=== PATIENT | female | born 1980 | race Caucasian/White ===

== ENCOUNTER 2022-12-31 09:52 | Outpatient (OUT) | payer OTHER, SELFPAY ==
--- NOTE | 2022-12-31 09:58 | MM_ITS ---
Patient Name: ZOHAIB BOYER MR#: [id number] : 1980 Exam Date: 12/31/2022 Ordering Doctor: DR DESTINEE DORAN RADIOLOGY REPORT PROCEDURE: MM TOMOSYNTHESIS SCREENING BI COMPARISON: MG MAMM SCREEN 3D HILDA CAD, 09/07/2021. INDICATIONS: Screening Calculator Name NCI Breast Cancer Risk Assessment Tool 5 Year Breast Cancer Risk 0.50% Lifetime Breast Cancer Risk 8.20% Personal Breast Cancer No Personal Ovarian Cancer No Treatments None Family Cancers Grandmother-maternal with colon cancer at age 70. LOCATION: [facility] BREAST COMPOSITION: Heterogeneously dense,which may obscure small masses. FINDINGS: DIAGNOSTIC CATEGORY 1--NEGATIVE. RIGHT BREAST: No significant suspicious finding. No significant change has occurred. LEFT BREAST: No significant suspicious finding. No significant change has occurred. RECOMMENDATIONS: ROUTINE MAMMOGRAM AND CLINICAL EVALUATION IN 12 MONTHS. PLEASE NOTE: A NORMAL MAMMOGRAM DOES NOT EXCLUDE THE POSSIBILITY OF BREAST CANCER. A CLINICALLY SUSPICIOUS PALPABLE LUMP SHOULD BE BIOPSIED. Dictated by: Vu Olivas M.D. on 01/05/2023 at 11:43 Approved by: Vu Olivas M.D. on 01/05/2023 at 11:45
== END 2022-12-31 09:53 | disposition home or self-care (01) ==
LOC: MAMMO 09:55
PROVIDERS: Visit Provider Obstetrics & Gynecology
DX: Z12.31 Encounter for screening mammogram for malignant neoplasm of breast (principal); Z80.0 Family history of malignant neoplasm of digestive organs
CPT/HCPCS: 77063; 77067

== ENCOUNTER 2023-07-01 14:29 | Emergency (ER) | payer OTHER, SELFPAY ==
[2023-07-01 14:34] VITALS: BP 140/84; PULSE 102; TEMP 37; O2SAT 98
--- OUTSIDE RECORDS SUMMARY | 2023-07-01 14:40 | XMS_ITS | CCD ---
Author Organization [facility] Care Team Providers Care Core Fitter Name Role Phone Tanvi Donaldson Unavailable Mast, Marques Unavailable EVERARDO, DR MOURA Attending Unavailable KARASIK, DR MOURA Admitting Unavailable KARASIK, DR MOURA Consulting Unavailable REQUEST, DR CROSS LISTED Primary Care Unavaila ble KARASIK, DR MOURA Admitting Unavailable KARASIK, DR MOURA Consulting Unavailable KARASIK, DR MOURA Attending Unavailable ZIEBER, DR VU Jimenez Consulting Unavailable Anika, Tanvi Admitting Unavailable Tanvi Donaldson Attending Unavailable Mast, Marques Primary Care Unavailable Mast, Marques Admitting Unavailable Mast, Marques Attending Unavailable Mast, Marques Primary Care Unavailable Celia Thorpe Unavailable Allergies Allergy Classification Reported Allergen(s) Allergy Type Date of Onset Reaction(s) Facility (10 sources) [place] Propensity to adverse reactions anaphylaxis [facility] Other (11 sources) Latex; Translations: [latex] Drug allergy 1 [facility] Repository (1 source) [place] extract Drug Allergy 1 [facility] Repository Medications Current Medications Medication Drug Class(es) Dates Sig (Normalized) Sig (Original) ascorbic acid 500 mg oral capsule (1 source) Vitamin C take 1 capsule by mouth every twenty-four hours Vitamin C 500 MG 1 tablet Orally Daily Active busPIRone hydrochloride 10 mg oral tablet (10 sources) Start: 11-15-2019 take 1 tablet by mouth every twelve hours busPIRone HCl 10 MG 1 tablet Orally Twice a day for 30 days Nov, Active take 1 tablet by mouth twice hanny ly busPIRone HCl 15 MG Take 1 tablet by mouth twice daily Active DULoxetine 60 mg delayed release oral capsule (10 sources) Serotonin and Norepinephrine Reuptake Inhibitor take 1 capsule by mouth once daily DULoxetine HCl 60 MG Take 1 capsule by mouth once daily Active estradiol 1 mg oral tablet (2 sources) Estrogen take 1 tablet by mouth every twenty-four hours Estradiol 1 MG 1 tablet Orally Once a day Active fluticasone propionate 0.05 mg/actuat metered dose nasal spray (4 sources) Corticosteroid Start: 07-22-19 take 2 spray(s) nasal route once daily Fluticasone Propionate 50 MCG/ACT 2 sprays Nasally Once a day for 14 day(s) Jul, Active Start: 07-21-2022 take 2 spray(s) nasa l route once daily Fluticasone Propionate 50 MCG/ACT 2 sprays Nasally Once a day for 14 day(s) Jul, Active meloxicam 15 mg oral tablet (9 sources) Nonsteroidal Anti-inflammatory Drug Start: 07-16-2021 take 1 tablet by mouth every twenty-four hours Meloxicam 15 MG 1 tablet Orally Once a day for 90 days Jul, Active Multi For Her (10 sources) take 1 tablet by mouth once daily Multi For Her 1 Tablet Orally daily Active Vitamin C 500 MG (9 sources) take 1 tablet by mouth once daily Vitamin C 500 MG 1 tablet Orally Daily Active Completed/Discontinued Medications Medication Drug Class(es) Dates Sig (Normalized) Sig (Original) [id number] 200 actuat albuterol 0.09 mg/actuat metered dose inhaler (4 sources) beta2-Adrenergic Agonist Start: 01-28-2019 take 2 puff(s) by inhalation every four hours as needed Albuterol Sulfate HFA 108 (90 Base) MCG/ACT 2 puffs as needed Inhalation every 4 hrs Jan, Not-Taking Start: 01-28-2019 take 2 puff(s) by in halation every four hours as needed Albuterol Sulfate HFA 108 (90 Base) MCG/ACT 2 puffs as needed Inhalation every 4 hrs Jan, Not-Taking amoxicillin 875 mg / clavulanate 125 mg oral tablet (4 sources) Penicillin-class Antibacterial Start: 07-21-2022 take 1 tablet by mouth every twelve hours Amoxicillin-Pot Clavulanate 875-125 MG 1 tablet Orally every 12 hrs for 10 day(s) Jul, Not-Taking/PRN fluconazole 150 mg oral tablet (4 sources) Azole Antifungal Start: 12-31-2020 take 1 tablet by mouth once Diflucan 150 MG 1 tablet Orally once for 1 day Take 1 tablet p.o. upon onset of symptoms of vaginal yeast infection Dec, Not-Taking mupirocin 0.02 mg/mg topical ointment (4 sources) RNA Synthetase Inhibitor Antibacterial Start: 10-22-2019 Mupirocin 2 % 1 application Externally Three times a day for 5 day(s) Oct, Not-Taking nitrofurantoin, macrocrystals 25 mg / nitrofurantoin, monohydrate 75 mg oral capsule (4 sources) Nitrofuran Antibacterial Start: 12-31-2020 take 1 capsule by mouth every twelve hours Macrobid 100 MG 1 cap(s) Orally bid for 5 day(s) Dec, Not-Taking penicillin v potassium 500 mg oral tablet (4 sources) Start: 10-30-2020 take 1 tablet by mouth every eight hours Penicillin V Potassium 500 MG 1 tablet Orally tid for 10 day(s) Oct, Not-Taking phenazopyridine hydrochloride 200 mg oral tablet (4 sources) Start: 12-31-2020 take 1 tablet by mouth every eight hours Pyridium 200 MG 1 tablet after meals Orally Three times a day for 2 day(s) Dec, Not-Taking predniSONE 20 mg oral tablet (4 sources) Start: 07-21-2022 take 1 tablet by mouth every twelve hours predniSONE 20 MG 1 tablet Orally bid for 5 day(s) Jul, Not-Taking/PRN Problems Active Problems Problem Classification Problem Date Documented Da te Episodic/Chronic Abdominal pain (10 sources) Generalized abdominal pain; Translations: [Generalized abdominal pain] Episodic Anxiety disorders (13 sources) Anxiety; Translations: [Other specified anxiety disorders] Chronic Esophageal disorders (10 sources) Gastroesophageal reflux disease; Translations: [Gastro-esophageal reflux disease without esophagitis] Chronic Gastrointestinal hemorrhage (20 sources) Hematochezia; Translations: [Melena] Episodic Hemorrhoids (10 sources) Internal hemorrhoids; Translations: [Other hemorrhoids] Episodic Immunizations and screening for infectious disease (3 sources) Encounter for screening for human papillomavirus (HPV); Translations: [Encounter for immunization] Onset: 2 Episodic Mycoses (1 source) Tinea unguium Episodic Open wounds of extremities (1 source) Puncture wound without foreign body, right foot, initial encounter Episodic Other gastrointestinal disorders (10 sources) Diarrhea; Translations: [Diarrhea, unspecified] Episodic Other non-traumatic joint disorders (2 sources) Pain in right hip Onset: 2 Resolved: 2 Episodic Other screening for suspected conditions (not mental disorders or infectious disease) (8 sources) Encounter for screening mammogram for malignant neoplasm of breast; Translations: [Encounter for screening for malignant neoplasm of cervix] Onset: 2 Episodic Other skin disorders (1 source) Localized swelling, mass and lump, neck Episodic Other skin disorders (2 sources) Ingrowing nail Episodic Other upper respiratory infections (1 source) Acute sinusitis, unspecified Episodic Residual codes; unclassified (1 source) Family history of malignant neoplasm of digestive organs; Translations: [FAM HX MALIG NEOPLASM DIGESTIV ORGN] Onset: 2 Episodic Unclassified (1 source) Pain in right hip; Translations: [Pain in right hip] Onset: 2 Unclassified (1 source) Low back pain, unspecified; Translations: [Low back pain, unspecified] Onset: 2 Unclassified (1 source) R30.0 - Dysuria; Translations: [R30.0 - Dysuria] Onset: 1 Past or Other Problems Problem Classification Problem Date Documented Da te Episodic/Chronic Genitourinary symptoms and ill-defined conditions (2 sources) Dysuria; Translations: [Hematuria, unspecified] Onset: 12-31-2020 Resolved: 12-31-2020 Episodic Unclassified (1 source) Midline low back pain without sciatica, unspecified chronicity M54.50 Onset: 07-16-2021 Resolved: 07-16-2021 Urinary tract infections (1 source) Urinary tract infection, site not specified Onset: 12-31-2020 Resolved: 12-31-2020 Episodic Results Test Name Value Interpretation Reference Range Facility MG MAMM SCREEN 3D HILDA CADon 09-07-2021 MG MAMM SCREEN 3D HILDA CAD Patient: ZOHAIB BOYER Exam Date: 09/07/2021 : 1980 Gender:F Ordering : DR MARTELL MCGEE . Admission #: [id number] Family : Order #: [id number] CLICK HERE TO VIEW EXAM RADIOLOGY REPORT PROCEDURE: MAMMOGRAM SCREENING 3D BILATERAL CAD COMPARISON: None. INDICATIONS: Screening mammography Calculator Name NCI Breast Cancer Risk Assessment Tool 5 Year Breast Cancer Risk 0.50% Lifetime Breast Cancer Risk 8.30% Personal Breast Cancer No Personal Ovarian Cancer No Treatments None Family Cancers Grandmother-maternal with colon cancer at age 70. LOCATION: [facility] BREAST COMPOSITION: Heterogeneously dense,which may obscure small masses. FINDINGS: DIAGNOSTIC CATEGORY 1--NEGATIVE. RIGHT BREAST: No significant suspicious finding. LEFT BREAST: No significant suspicious finding. RECOMMENDATIONS: ROUTINE MAMMOGRAM AND CLINICAL EVALUATION IN 12 MONTHS. PLEASE NOTE: A NORMAL MAMMOGRAM DOES NOT EXCLUDE THE POSSIBILITY OF BREAST CANCER. A CLINICALLY SUSPICIOUS PALPABLE LUMP SHOULD BE BIOPSIED. Dictated by: Vu Olivas M.D. on 09/07/2021 at 12:46 Approved by: Vu Olivas M.D. on 09/07/2021 at 12:48 Normal [facility] PAP ACOG PANEL 2: 30 to 65on 08-14-2021 . . Normal [facility] Comment on above: Result Comment: Perf ormed at: WB Performed By: #### [id number] #### [facility] [address] [address] [address] Nayeli Robertson Age Gdln ACOG Testing 30-65 Normal [facility] Comment on above: Performed By: #### [id number] #### [facility] [address] [address] [address] Nayeli Robertson DIAGNOSIS: Comment Normal [facility] Comment on above: Result Comment: NEGA TIVE FOR INTRAEPITHELIAL LESION OR MALIGNANCY. SHIFT IN MICHELLE SUGGESTIVE OF BACTERIAL VAGINOSIS. Performed at: WB Performed By: #### [id number] #### [facility] [address] [address] [address] Nayeli Robertson HPV Aptima Negative Normal Negative [facility] Comment on above: Result Comment: This nucleic acid amplification test detects fourteen high-risk HPV types (16,18,31,33,35,39,45,51,52,56,58,59,66,68) without differentiation. Performed at: =G Performed By: #### [id number] #### [facility] [address] [place] [address] Dr. Nayeli Robertson Methodology: Comment Normal [facility] Comment on above: Result Comment: This liquid based ThinPrep(R) pap test was screened with the use of an image guided system. Performed at: WB Performed By: #### [id number] #### [facility] [address] [place] [address] Dr. Nayeli Robertson Note: Comment Normal [facility] Comment on above: Result Comment: The Pap smear is a screening test designed to aid in the detection of premalignant and malignant conditions of the uterine cervix. It is not a diagnostic procedure and should not be used as the sole means of detecting cervical cancer. Both false-positive and false-negative reports do occur. . Performed at: WB Performed By: #### [id number] #### [facility] [address] [place] [address] Dr. Nayeli Robertson Performed by: Comment Normal [facility] Comment on above: Result Comment: Ale Grullon, Machine Heel Sprayer (ASCP) Performed at: WB Performed By: #### [id number] #### [facility] [address] [place] [address] Dr. Nayeli Robertson Specimen adequacy: Comment Normal [facility] Comment on above: Result Comment: Sati sfactory for evaluation. No endocervical component is identified. Performed at: WB Performed By: #### [id number] #### [facility] [address] [place] [address] Dr. Nayeli Robertson XR lumbar spine min 4V*on XR lumbar spine min 4V* [facility] [place] [address] [place] [address] XRay Report Signed Patient: Zohaib Boyer MR#: [id number] 2 : 1980 Acct:[id number] Age/Sex: 41 / F ADM Date: 07/30/21 [facility] Attending Dr: Marques Swenson DO Copies to: Marques Swenson DO Ordering Provider: Marques Nik Swenson Date of Service: 07/30/21 XR/XR hip RT min 2V(w/wo pelvis)*: Right hip pain ([id number]) XR/XR lumbar spine min 4V*: Midline low back pain without sciatica, unspecified chronici CLINICAL HISTORY: Low back pain and pain at the hips, greater on the right. Patient fell down stairs several years ago. No recent injury. RIGHT HIP - 2 views: COMPARISON: None AP and frog-lateral views were obtained. There is no evidence of fracture or dislocation. The hip joint space is maintained. There is no prominent hypertrophy. Are no significant soft tissue abnormalities. XR/XR hip RT min 2V(w/wo pelvis)* IMPRESSION: NO ACUTE BONY FINDINGS. LUMBAR SPINE - 6 views COMPARISON: 09/08/2015 AP, lateral, both oblique and AP and lateral coned-down views of lumbosacral junction were obtained. No fractures or displacement are noted. The disc spaces are uniform. No pars defects are seen. There is mild lower lumbar facet hypertrophy. The SI joints are intact though there is minimal sclerosis. No paraspinal soft tissue abnormalities are present. IMPRESSION: MINOR DEGENERATIVE CHANGES. NO ACUTE BONY FINDINGS OR INTERVAL CHANGE. Impression dictated by: Kim Dhillon M.D.07/30/2021 7:53 PM Dictation Location: [place] [address] Transcribed By: [facility] 07/30/211952 Dictated By: Kim Dhillon MD 07/30/21 1524 Signed By: 07/30/211952 [facility] Urinalysis - AUTOMATEDon Appearance (U) clear [employer] Other Bilirubin Ql (U) Negative [employer] Other Color (U) pale yellow [facility] Other Glucose Ql (U) Negative [facility] Other Hemoglobin Ql (U) moderate [employer] Other Ketones Ql (U) Negative Sist[facility] Other Leukocyte esterase Test strip Ql (U) small [facility] Other Nitrite Ql (U) Positive [facility] Other pH (U) 7.0 [pH] [facility] Other Protein Ql (U) Negative [facility] Other Specific gravity (U) [Rel density] 1.020 [facility] Other Urobilinogen (U) [Mass/Vol] 0.2 mg/dL [facility] Other Urinalysis - AUTOMATED [facility] Other Urine Cultureon 12-31-2020 Bacteria identified Cx Nom (U) Reason for Exam Dysuria Urine ORGANISM: Escherichia coli (O:ESCCOL) [place] Count >100,000 Aerobic DK Charge (NUC86) ---- SUSCEPTIBILITY --- ORGANISM: O:ESCCOL ANTIBIOTIC INTERPRETATION DK Amikacin S <16 Ampicillin S <8 Ampicillin/Sulbactam S <8/4 Aztreonam S <4 Cefazolin S <2 Cefepime S <2 Ceftazidime S <1 Ceftazidime/Avibactam S <8 Ceftriaxone S <1 Ciprofloxacin S <1 Ertapenem S <0.5 Gentamicin S <4 Levofloxacin S <2 Meropenem S <1 Nitrofurantoin S <32 Piperacillin/Tazobact am S <16 Tetracycline S <4 Tigecycline S <2 Tobramycin S <4 Trimethoprim/Sulfamet hoxazole S <2/38 S = SUSCEPTIBLE I = INTERMEDIATE R = RESISTANT BLANK = DATA NOT AVAILABLE, OR DRUG NOT ADVISABLE OR TESTED R* = RESISTANCE DUE TO EXTENDED SPECTRUM BETA-LACTAMASES ESBL = EXTENDED SPECTRUM BETA-LACTAMASE TFG = THYMIDINE-DEPENDENT STRAIN VASYL = BETA-LACTAMASE POSITIVE IB = INDUCIBLE BETA-LACTAMASE. APPEARS IN PLACE OF 'S' WITH SPECIES KNOWN TO POSSESS INDUCIBLE BETA-LACTAMASES. POTENTIALLY THEY MAY BECOME RESISTANT TO ALL B-LACTAM DRUGS. PERFORMED BY: [place] [address] PATHOLOGIST DETECTIVE [employer] ANNIKA PERERA M.D. Normal [facility] Comment on above: Performed By: #### C UU #### [address] Vital Signs Date Time Vital Sign Value Performing Clinician Facility 01-18-2023 16:45-0500 Body height 167.64 cm Marques Mast Other [facility] Other 01-18-2023 16:45-0500 Body mass index (BMI) [Ratio] 31.45 kg/m2 Marques Mast Other [facility] Other 01-18-2023 16:45-0500 Body temperature 97.6 [degF] Marques Mast Other [facility] Other 01-18-2023 16:45-0500 Body weight 88.41 kg Marques Mast Other [facility] Other 01-18-2023 16:45-0500 Diastolic blood pressure 84 mm[Hg] Marques Mast Other [facility] Other 01-18-2023 16:45-0500 Respiratory rate 18 /min Marques Mast Other [facility] Other 01-18-2023 16:45-0500 SaO2% (BldA) [Mass fraction] 99 % Marques Mast Other [facility] Other 01-18-2023 16:45-0500 Systolic blood pressure 140 mm[Hg] Marques Mast Other [facility] Other 01-10-2023 13:00-0500 Body height 167.64 cm Marques Mast Other [facility] Other 01-10-2023 13:00-0500 Body mass index (BMI) [Ratio] 31.12 kg/m2 Marques Mast Other [facility] Other 01-10-2023 13:00-0500 Body temperature 97.7 [degF] Marques Mast Other [facility] Other 01-10-2023 13:00-0500 Body weight 87.45 kg Marques Mast Other [facility] Other 01-10-2023 13:00-0500 Diastolic blood pressure 78 mm[Hg] Marques Mast Other [facility] Other 01-10-2023 13:00-0500 Respiratory rate 18 /min Marques Mast Other [facility] Other 01-10-2023 13:00-0500 SaO2% (BldA) [Mass fraction] 99 % Marques Mast Other [facility] Other 01-10-2023 13:00-0500 Systolic blood pressure 122 mm[Hg] Marques Mast Other [facility] Other 12-07-2022 14:30-0400 Body height 167.64 cm Marques Mast Other [facility] Other 12-07-2022 14:30-0400 Body mass index (BMI) [Ratio] 31.02 kg/m2 Marques Mast Other [facility] Other 12-07-2022 14:30-0400 Body temperature 97.5 [degF] Marques Mast Other [facility] Other 12-07-2022 14:30-0400 Body weight 87.18 kg Marques Mast Other [facility] Other 12-07-2022 14:30-0400 Diastolic blood pressure 80 mm[Hg] Marques Mast Other [facility] Other 12-07-2022 14:30-0400 Respiratory rate 18 /min Marques Mast Other [facility] Other 12-07-2022 14:30-0400 SaO2% (BldA) [Mass fraction] 96 % Marques Mast Other [facility] Other 12-07-2022 14:30-0400 Systolic blood pressure 120 mm[Hg] Marques Mast Other [facility] Other 07-21-2022 09:00-0400 Body height 167.64 cm Tanvi Kimmond Other [facility] Other 07-21-2022 09:00-0400 Body mass index (BMI) [Ratio] 30.02 kg/m2 Tanvi Anika Other [facility] Other 07-21-2022 09:00-0400 Body temperature 97.5 [degF] Tanvi Anika Other [facility] Other 07-21-2022 09:00-0400 Body weight 84.37 kg Tanvi Anika Other [facility] Other 07-21-2022 09:00-0400 Respiratory rate 18 /min Tanvi Donaldson Other [facility] Other 07-21-2022 09:00-0400 SaO2% (BldA) [Mass fraction] 95 % Tanvi Donaldson Other [facility] Other 04-26-2022 10:15-0400 Body height 167.64 cm Marques Mast Other [facility] Other 04-26-2022 10:15-0400 Body mass index (BMI) [Ratio] 30.68 kg/m2 Marques Mast Other [facility] Other 04-26-2022 10:15-0400 Body temperature 97.3 [degF] Marques Mast Other [facility] Other 04-26-2022 10:15-0400 Body weight 86.23 kg Marques Mast Other [facility] Other 04-26-2022 10:15-0400 Diastolic blood pressure 72 mm[Hg] Marques Mast Other [facility] Other 04-26-2022 10:15-0400 Respiratory rate 18 /min Marques Mast Other [facility] Other 04-26-2022 10:15-0400 SaO2% (BldA) [Mass fraction] 98 % Marques Mast Other [facility] Other 04-26-2022 10:15-0400 Systolic blood pressure 132 mm[Hg] Marques Mast Other [facility] Other 12-27-2021 15:30-0500 Body height 167.64 cm Celia Thorpe Other [facility] Other 12-27-2021 15:30-0500 Body mass index (BMI) [Ratio] 31.47 kg/m2 Celia Thorpe Other [facility] Other 12-27-2021 15:30-0500 Body temperature 98.8 [degF] Celia Thorpe Other [facility] Other 12-27-2021 15:30-0500 Body weight 88.45 kg Celia Thorpe Other [facility] Other 12-27-2021 15:30-0500 Diastolic blood pressure 88 mm[Hg] Celia Thorpe Other [facility] Other 12-27-2021 15:30-0500 Respiratory rate 18 /min Celia Thorpe Other [facility] Other 12-27-2021 15:30-0500 SaO2% (BldA) [Mass fraction] 96 % Celia Thorpe Other [facility] Other 12-27-2021 15:30-0500 Systolic blood pressure 145 mm[Hg] Ceila Thorpe Other [facility] Other 12-17-2021 16:30-0500 Body height 167.64 cm Marques Mast Other [facility] Other 12-17-2021 16:30-0500 Body mass index (BMI) [Ratio] 30.66 kg/m2 Marques Mast Other [facility] Other 12-17-2021 16:30-0500 Body temperature 97.8 [degF] Marques Mast Other [facility] Other 12-17-2021 16:30-0500 Body weight 86.18 kg Marques Mast Other [facility] Other 12-17-2021 16:30-0500 Diastolic blood pressure 70 mm[Hg] Mraques Mast Other [facility] Other 12-17-2021 16:30-0500 Respiratory rate 18 /min Marques Mast Other [facility] Other 12-17-2021 16:30-0500 SaO2% (BldA) [Mass fraction] 98 % Marques Mast Other [facility] Other 12-17-2021 16:30-0500 Systolic blood pressure 122 mm[Hg] Marques Mast Other [facility] Other 07-16-2021 16:45-0400 Body height 167.64 cm Marques Mast Other [facility] Other 07-16-2021 16:45-0400 Body mass index (BMI) [Ratio] 32.28 kg/m2 Marques Mast Other [facility] Other 07-16-2021 16:45-0400 Body weight 90.72 kg Marques Mast Other [facility] Other 07-16-2021 16:45-0400 Diastolic blood pressure 78 mm[Hg] Marques Mast Other [facility] Other 07-16-2021 16:45-0400 Respiratory rate 18 /min Marques Mast Other [facility] Other 07-16-2021 16:45-0400 SaO2% (BldA) [Mass fraction] 98 % Marques Mast Other [facility] Other 07-16-2021 16:45-0400 Systolic blood pressure 125 mm[Hg] Marques Mast Other [facility] Other 12-31-2020 16:20-0500 Body height 167.64 cm Tanvi Anika Other [facility] Other 12-31-2020 16:20-0500 Body mass index (BMI) [Ratio] 32.25 kg/m2 Tanvi Anika Other [facility] Other 12-31-2020 16:20-0500 Body temperature 98.2 [degF] Tanvi Anika Other [facility] Other 12-31-2020 16:20-0500 Body weight 90.63 kg Tanvi Anika Other [facility] Other 12-31-2020 16:20-0500 Diastolic blood pressure 79 mm[Hg] Tanvi Anika Other [facility] Other 12-31-2020 16:20-0500 Respiratory rate 18 /min Tanvi Anika Other [facility] Other 12-31-2020 16:20-0500 SaO2% (BldA) [Mass fraction] 99 % Tanvi Anika Other [facility] Other 12-31-2020 16:20-0500 Systolic blood pressure 144 mm[Hg] Tanvi Kimmond Other [facility] Other Encounters Encounter Date Encounter Type Care Provider Facility Start: 01-18-2023 End: 01-18-2023 ambulatory Marques Mast Other [facility] Other Start: 01-18-2023 Patient encounter procedure Marques Mast [facility] Start: 01-10-2023 End: 01-10-2023 ambulatory Marques Mast Other [facility] Other Start: 01-10-2023 Office outpatient visit 15 minutes Marques Mast [facility] Start: 12-07-2022 End: 12-07-2022 ambulatory Marques Mast Other [facility] Other Start: 12-07-2022 Office outpatient visit 15 minutes Marques Mast [facility] Start: 07-21-2022 End: 07-21-2022 ambulatory Tanvi Anika Other [facility] Other Start: 07-21-2022 Office outpatient visit 15 minutes Tanvi Anika [facility] Start: 04-26-2022 End: 04-26-2022 ambulatory Marques Mast Other [facility] Other Start: 04-26-2022 Office outpatient visit 25 minutes Marques Mast [facility] Start: 12-27-2021 End: 12-27-2021 ambulatory Celia Thorpe Other [facility] Other Start: 12-27-2021 Office outpatient visit 15 minutes Celia Thorpe [facility] Start: 12-17-2021 End: 12-17-2021 ambulatory Marques Mast Other [facility] Other Start: 12-17-2021 Office outpatient visit 15 minutes Marques Mast [facility] Start: 09-07-2021 End: 09-08-[address] CROSS LISTED REQUEST Facility:[facility] Start: 09-03-2021 End: 09-03-2021 ambulatory Marques Mast Other [facility] Other Start: 09-03-2021 Telephone encounter Marques Mast [facility] [place] Start: 08-11-2021 End: 08-11-[address] MARTELL MCGEE Facility:[facility] Start: 07-30-2021 End: 07-30-2021 ambulatory Marques Mast Facility:[facility] Start: 07-16-2021 End: 07-16-2021 ambulatory Marques Mast Other [facility] Other Start: 07-16-2021 Office outpatient visit 25 minutes Marques Mast [facility] [facility] Start: 12-31-2020 End: 12-31-2020 ambulatory Tanvi Donaldson [facility] Other Start: 12-31-2020 Office outpatient visit 25 minutes Tanvi Donaldson [facility] Immunizations Immunization Date Immunization Notes Care Provider Tim [facility] 12-07-2022 influenza, injectable, quadrivalent, preservative free Marques Mast Other [facility] Other 12-01-2022 COVID-19 Vaccine Moderna - Documentation Purposes Only Marques Mast Other [facility] Other 12-27-2021 tetanus toxoid, reduced diphtheria toxoid, and acellular pertussis vaccine, adsorbed Celia Thorpe Other [facility] Other 12-17-2021 influenza, injectable, quadrivalent, preservative free Marques Mast Other [facility] Other 12-07-2019 influenza, seasonal, injectable Tanvi Donaldson Other [facility] Other NEGATED: Highlighted row has not occurred! 0 influenza, injectable, quadrivalent, contains preservative Patient Objection Tanvi Donaldson Other [facility] Other Payers Date Payer Category Payer Self-pay 1980 Unknown [id number] 2.16.84 [id number] 1980 Unknown [id number] 2.16.84 [id number] 1958 Unknown [id number] 2.16.8 [id number] Unknown [id number] 2.16.8 [id number] Unknown [id number] 2.16.8 [id number] Social History Date Type Detail Facility Unknown if ever smoked [facility]! Other Sex Assigned At Sex Assigned At Bir th [facility] Other Clinical Notes 12-31-2020 to 01-18-2023 Note Date & Type Note Facility 01-18-2023 Evaluation note Encounter Date Diagnosis Assessment Notes Jan, Ingrown toenail (ICD-10 - L60.0) The area has healed well. Recheck as needed [facility] Other 12-04-2023 Evaluation note* Encounter Date Diagnosis Assessment Notes Treatment Notes Treatment Clinical Notes Jan, Ingrown toenail (ICD-10 - L60.0) Jan, Onychomycosis (ICD-10 - B35.1) Jan, Other We discussed treatment options. I advised that partial nail removal would likely afford her the best symptom improvement today. I offered referral to podiatry but she request that I perform this here today. Informed consent obtained. We elected to treat the right great toenail today. Digital block anesthesia was performed of the right great toe with 3 cc of 1% plain lidocaine. Rubber band tourniquet applied. The area is cleansed with Betadine. Using a nail elevator I was able to separate the nail from the nailbed, and using a nail splitter I was able to remove the medial third of the nail. Tourniquet removed, Iodoform gauze and dressing applied. She tolerated the procedure well, there were no complications. Home care reviewed. Wound check in 1 week, call if problems arise. We did also briefly discuss treatment for onychomycosis, we will readdress this at follow-up. [facility] Other 10-31-2023 Evaluation note* Encounter Date Diagnosis Assessment Notes Treatment Notes Treatment Clinical Notes Nov, Anxiety with depression (ICD-10 - F41.8) Doing well on current medications, continue the same. Recheck in 6 months, sooner if problems Nov, Flu vaccine need (ICD-10 - Z23) Nov, Other She will let me know if she needs a new EpiPen, I will be happy to refill this for her [facility] Other 06-14-2023 Evaluation note* Encounter Date Diagnosis Assessment Notes Treatment Notes Treatment Clinical Notes Jul, Acute sinusitis, recurrence not specified, unspecified location (ICD-10 - J01.90) Sinusitis home care material was printed Drink plenty fluids, get plenty of rest. Take the amoxicillin with clavulanate as prescribed until gone. Take the prednisone as prescribed until gone. Use the Flonase inhaler as prescribed until your symptoms improve. You may continue to take Mucinex as needed for congestion. Take Tylenol or Motrin as needed for aches pains or fevers. Follow-up with your family physician if no improvement in 2 to 3 days. You may return to work tomorrow [facility] Other 03-20-2023 Evaluation note* Encounter Date Diagnosis Assessment Notes Treatment Notes Treatment Clinical Notes Apr, Anxiety with depression (ICD-10 - F41.8) Stay on the Cymbalta, increase the buspirone up to 15 mg twice daily. Short counseling session held, I encouraged her to arrange formal counseling Apr, Neck fullness (ICD-10 - R22.1) Exam suggest a possible thyroid fullness on the left. I do not appreciate any neck mass or adenopathy. Check ultrasound, further treatment pending results [facility] Other 11-20-2022 Evaluation note* Encounter Date Diagnosis Assessment Notes Treatment Notes Treatment Clinical Notes Dec, Puncture wound of right foot, initial encounter (ICD-10 - S91.331A) Updated vaccine in office today. . FOllow up wiht PCP if symptoms such as moderate swelling, redness, drainage occure. [facility] Other 11-10-2022 Evaluation note* Encounter Date Diagnosis Assessment Notes Treatment Notes Treatment Clinical Notes Dec, Anxiety with depression (ICD-10 - F41.8) Mood is well controlled. Continue current meds and recheck this in 6 months, sooner if problems Dec, Right hip pain (ICD-10 - M25.551) The etiology of her hip pain is unclear, and her exam does not show significant abnormality. She would like to stay on the meloxicam which I think is reasonable. She denies any medication side effects. I encouraged regular exercise, walking. I offered sending her to physical therapy, she prefers to hold off on this right now. She will let me know if she changes her mind. Dec, Flu vaccine need (ICD-10 - Z23) [facility] Other 06-09-2022 Evaluation note* Encounter Date Diagnosis Assessment Notes Treatment Notes Treatment Clinical Notes Jul, Midline low back pain without sciatica, unspecified chronicity (ICD-10 - M54.50) Symptoms most suspicious for a lumbar radiculopathy. Check lumbar spine x-rays to reassess her degenerative changes, observe response to meloxicam. She may also benefit from PT in the future Jul, Right hip pain (ICD-10 - M25.551) Check x-ray to evaluate for possible arthritis, though clinically I am most suspicious for trochanteric bursitis. If x-ray does not provide a contraindication, I will have her come back for steroid injection. In the meantime, start meloxicam and observe response. Recheck in a month [facility]! Other 11-24-2021 Evaluation note* Encounter Date Diagnosis Assessment Notes Treatment Notes Treatment Clinical Notes Dec, Dysuria (ICD-10 - R30.0) Drink plenty fluids, get plenty of rest. Take the Macrobid as prescribed until gone. Take the Pyridium as prescribed until gone. Take the Diflucan as prescribed upon onset of symptoms or vaginal yeast infection. Follow-up with family physician if no improvement in 2 to 3 days. Dec, Urinary tract infection, site not specified (ICD-10 - N39.0) Dec, Hematuria, unspecified (ICD-10 - R31.9) [facility]! Other Evaluation noteNo InformationN[facility] Other History general Narrative - Reported* Type Description Date Medical History Headache Medical History anxiety Surgical History partial hysterectomy 2011 Surgical History tubal ligation 2006 Surgical History colonoscopy Surgical History COLONOSCOPY 2014 Hospitalization History childbirth YesPlz! Other Summary Purpose Family History No Family History Records FoundNo Family History Records Found Advance Directives No Advanced Directives Records FoundNo Advanced Directives Records Found Additional Source Comments REASON FOR VISIT (unrecogniz ed section and content) POSS UTI, HEMATURIApain, hip REFILLmedication follow upSTEP ON NAIL RIGHT FOOTthyroid concernssinus/chest/coughingrefillsINGROWN TOE NAILS IN BOTH BIG TOES1 week follow up INFORMATION SOURCE (unrecogn ized section and content) DATE CREATED AUTHOR 09/11/2021 [facility] DATE CREATED AUTHOR 'S MICHAEL CASTELLANOS 11/16/2021 [facility] FOR RECORDS PERTAINING TO PATIENTS WHO ARE OR HAVE BEEN ENROLLED IN A CHEMICAL DEPENDENCY/SUBSTANCEABUSE PROGRAM, SOME INFORMATION MAY BE OMITTED. This clinical summary was aggregated from multiple sources. Caution should be exercised in using it in the provision of clinical care. This summary normalizes information from multiple sources, and as a consequence, information in this document may materially change the coding, format and clinical context of patient data. In addition, data may be omitted in some cases. CLINICAL DECISIONS SHOULD BE BASED ON THE PRIMARY CLINICAL RECORDS. [facility]. provides no warranty or guarantee of the accuracy or completeness of information in this document.
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
[2023-07-01] MEDS: BUTALB/ACETAMINOPHEN/CAFFEINE 50-325-40MG TABLET 1 TAB PO (16:22)
[2023-07-01 17:36] VITALS: BP 120/76; PULSE 77; O2SAT 98
== END 2023-07-01 17:38 | disposition home or self-care (01) ==
PROVIDERS: Emergency Provider Emergency Medicine
DX: S09.8XXA Other specified injuries of head, initial encounter (principal); R51.9 Headache, unspecified; Y04.2XXA Assault by strike against or bumped into by another person, initial encounter
CPT/HCPCS: 70450; 99284

== ENCOUNTER 2024-03-20 13:39 | Outpatient (OUT) | payer OTHER, SELFPAY ==
--- NOTE | 2024-03-20 13:44 | XR_ITS ---
The [address] [address] Patient Name: ZOHAIB BOYER MRN: [id number] date: 1980 Sex: F Assigned Patient Location: [facility] Current Patient Location: [facility] Accession/Order Number: [id number] Exam Date: 03/20/2024 13:50 Report Date: 03/20/2024 14:59 At the request of: ANTHONY STILL Procedure: XR abdomen 1V EXAMINATION: XR abdomen 1V HISTORY: Kidney Stones COMPARISON: No relevant comparison available. FINDINGS: KIDNEY/URETER - RIGHT: No visible renal or ureteral calcifications. KIDNEY/URETER - LEFT: No visible renal or ureteral calcifications. PELVIS: No visible ureteral calcifications. Any visible calcifications favor phleboliths. BOWEL: No abnormal dilation or deviation. BONES: No acute abnormality. OTHER: Negative. No abnormal gaseous collections. XR/XR abdomen 1V IMPRESSION: No definite urinary tract calculi Electronically authenticated by: DESTINY SOMMER Date: 03/20/2024 14:59
== END 2024-03-20 13:40 | disposition home or self-care (01) ==
LOC: RAD 13:40
PROVIDERS: Visit Provider Physician Assistant
DX: N20.1 Calculus of ureter (principal)
CPT/HCPCS: 74018

== ENCOUNTER 2024-10-23 07:27 | Emergency (ER) | payer OTHER, SELFPAY ==
[2024-10-23] VITALS (24 sets, daily range): BP systolic 112–134; BP diastolic 63–78; PULSE 63–82; TEMP 36.6; O2SAT 98–100; BMI 25.8
--- NOTE | 2024-10-23 07:41 | ECG_ITS ---
The [facility] Test Date: 2024-10-23 Pat Name: ZOHAIB BOYER Department: Room: - Gender: Female Inseamer: : 1980 Requested By: [id number] Order Number: [id number] Reading MD: MARA SYED M.D. Measurements Intervals [place] Rate: 62 P: 75 AR: 160 QRS: 81 QRSD: 82 T: 74 QT: 430 QTc: 436 Interpretive Statements 1100 Sinus rhythm 9110 normal ECG No previous ECG available for comparison Electronically Signed On 10-23-2024 20:11:47 EDT by MARA SYED M.D.
--- OUTSIDE RECORDS SUMMARY | 2024-10-23 07:44 | XMS_ITS | Clinical Summary ---
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 Active cholecalcifero l (Vitamin D-3) 25 MCG (1000 UT) tablet Take 1,000 Units by mouth in the morning. Active DULoxetine (Cymbalta) [address] capsule Take 60 mg by mouth in the morning. Active ferrous gluconate (Fergon) 324 (38 Fe) MG tablet Take 324 mg by mouth in the morning. Take with meals. 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 Obesity 12/07/2022 Other chronic pain 12/07/2022 Salivary stone 12/07/2022 Resolved Problems Problem Noted Date Diagnosed Date Resolved Date Status post hysterectomy 12/07/202205/2023 Immunizations Immunization Administration Dates Next Due Influenza, injectable, quadrivalent, preservativ e free 12/17/2021,12/14/2019 Influenza, seasonal, injectable 12/07/2019 Novel [id number], nasal 12/03/2008 SARS-COV-2 (COVID-19) vaccin e, mRNA, spike protein, LNP, PF, 50 mcg/0.5 mL 12/01/2022 Tdap 12/27/2021 Family History Medical History Relation Name Comments Colon cancer Maternal Grandfather Cancer Maternal Grandmother Relation Name Status Comments Father Maternal Grandfather Maternal Grandmother Mother Alive Social History Tobacco Use Types Packs/Day Years Used Date Smoking Tobacco: Every Day Cigarettes Smokeless Tobacco: Never Tobacco Cessation:Ready to Q uit: Not Asked; Counseling Given: Not Answered Alcohol Use Standard Drinks/Week Comments Yes 0 (1 standard drink = 0.6 oz pure alcohol) Caffeine intake: 2-3 cups per day AUDIT-C Answer Date Recorded Q1: How often do you have a drink containing alc ohol? Monthly or less 12/12/2023 Q2: How many drinks containi ng alcohol do you have on a typical day when you are drinking? 1 or 2 12/12/2023 Q3: How often do you have si x or more drinks on one occasion? Never 12/12/2023 PHQ-2 Answer Date Recorded Patient Health Questionnaire-2 Score 0 12/12/2023 Comments No Sex and Gender Information Value Date Recorded Sex Assigned at Not on file Legal Sex Female 6:57 PM EDT Gender Identity Not on file Sexual Orientation Not on file Last Filed Vital Signs Vital Sign Reading Time Taken Comments Blood Pressure 116/76 12/12/2023 1:38 PM EST Pulse - - Temperature - - Respiratory Rate - - Oxygen Saturation - - Inhaled Oxygen Concentration - - Weight 79.8 kg (176 lb) 12/12/2023 1:38 PM EST Height 167.6 cm (5' 6 ) 12/12/2023 1:38 PM EST Body Mass Index 28.41 12/12/2023 1:38 PM EST Plan of Treatment Upcoming Encounters Date Type Department Care Team (Late st Contact Info) Description 12/12/2024 2:00 PM EST Office Visit RUEL Andrews ANGIE [address] [place] [id number] Aidan Bradford, [address] [place] [address] Health Maintenance Due Date Last Done Comments Mammogram 01/06/2024 01/05/2023 Influenza Vaccine (#1) 2024 12/17/2021, 2019, 12/07/2019 Pap Smear 12/08/2025 12/08/2022 Cervical Cancer Screening 12/11/2028 HPV/Cotest 12/11/2028 12/12/2023 Procedures Procedure Name Priority Date/Time Associated Diagnosis Comments IGP,RFXAPTIMA HPV ALL,16/18,45 Routine 12/12/2023 2:08 PM EST Encounter for Papanicolaou smear of vagina MM TOMOSYNTHESIS SCREENING BI 01/05/2023 11:45 AM EST PAP SMEAR Routine 12/08/2022 2:05 PM EDT from Last 3 Months or Most Recently Relevant to Health Maintenance Results * IGP,rfxAptima HPV all,16/18,45 (12/12/2023 2:08 PM EST) Diagnosis: Comment [facility] Comment:NEGATIVE FOR INTRAEP ITHELIAL LESION OR MALIGNANCY. Specimen Adequacy: Comment [facility] Comment: Satisfactory for evaluation. Endocervical and/or squamous metaplastic cells (endocervical component) are present. Clinician Provided ICD10: Comment [facility] Comment:Z12.72 Performed By: Comment [facility] Comment:Edilma Daniels, Cyto technologist (ASCP) Cyto Comments . [facility] Note: Comment [facility] Comment: The Pap smear is a screening test designed to aid in the detection of premalignant and malignant conditions of the uterine cervix. It is not a diagnostic procedure and should not be used as the sole means of detecting cervical cancer. Both false-positive and false-negative reports do occur. Test Methodology: Comment [facility] Comment: This liquid based ThinPrep(R) pap test was screened with the use of an image guided system. . Comment [facility] Comment: The HPV DNA reflex criteria were not met with this specimen result therefore, no HPV testing was performed. Swab Vaginal structure / Unknown 12/12/2023 2:08 PM EST 12/13/2023 Comment:Vagina LMP: [facility] 2010 P Narrative [facility] - 12/18/2023 5:06 PM EST Performed at: - [address] [id number] Rooming House Inspector: Jaja Ross MD, Phone: [phone] Specimen Comment: [id number] Specimen Comment: Dates / Results....[facility] 2010 Specimen Comment: No. of containers..01 ThinPrep Vial us Aidan Bradford DO LAB CYTOLOGY ORDERABLES Sherlyn l Result [facility] * MM TOMOSYNTHESIS SCREENING BI (01/05/2023 11:45 AM EST) Anatomical Region Laterality Modality Other 01/05/2023 11:4 5 AM EST Narrative 01/05/2023 11:45 [place] [address] Mammography Report Signed Patient: GENESIS BOYER MR#: [id number] : 1980 Acct:[id number] Age/Sex: 42 / F ADM Date: 12/31/22 Loc: MAMMO Attending Dr: AIDAN BRADFORD Ordering Physician: AIDAN BRADFORD Results: Date of Service: 12/31/22 Follow Up: Procedure(s): MM tomosynthesis screening BI Accession Number(s): [id number] cc: AIDAN BRADFORD ; Physician,Non-Staff M.D. Patient Name: GENESIS BOYER MR#: [id number] : 1980 Exam Date: 12/31/2022 Ordering Doctor: DR AIDAN BRADFORD RADIOLOGY REPORT PROCEDURE: MM TOMOSYNTHESIS SCREENING BI COMPARISON: MG MAMM SCREEN 3D HILDA CAD, 09/07/2021. INDICATIONS: Screening Calculator Name NCI Breast Cancer Risk Assessment Tool 5 Year Breast Cancer Risk 0.50% Lifetime Breast Cancer Risk 8.20% Personal Breast Cancer No Personal Ovarian Cancer No Treatments None Family Cancers Grandmother-maternal with colon cancer at age 70. LOCATION: [facility] BREAST COMPOSITION: Heterogeneously dense,which may obscure small masses. FINDINGS: DIAGNOSTIC CATEGORY 1--NEGATIVE. RIGHT BREAST: No significant suspicious finding. No significant change has occurred. LEFT BREAST: No significant suspicious finding. No significant change has occurred. RECOMMENDATIONS: ROUTINE MAMMOGRAM AND CLINICAL EVALUATION IN 12 MONTHS. PLEASE NOTE: A NORMAL MAMMOGRAM DOES NOT EXCLUDE THE POSSIBILITY OF BREAST CANCER. A CLINICALLY SUSPICIOUS PALPABLE LUMP SHOULD BE BIOPSIED. Dictated by: Vu Olivas M.D. on 01/05/2023 at 11:43 Approved by: Vu Olivas M.D. on 01/05/2023 at 11:45 Dictated By: Vu Olivas M.D. Signed By: 01/05/23 1146 DD/ 1145 TD/TT: Qa Lead: Procedure Note Radiology, Radiologist, MD - 01/05/2023 [place] [address] Mammography Report Signed Patient: GENESIS BOYER AMR#: [id number] : 1980Acct:[id number] Age/Sex: 42 / FADM Date: 12/31/22 Loc: MAMMO Attending Dr: AIDAN BRADFORD Ordering Physician: AIDAN BRADFORDResults: Date of Service: 12/31/22Follow Up: Procedure(s): MM tomosynthesis screening BI Accession Number(s): [id number] cc: AIDAN BRADFORD ; Physician,Non-Staff Harsh Patient Name: GENESIS BOYER MR#: [id number] : 1980 Exam Date: 12/31/2022 Ordering Doctor: DR AIDAN BRADFORD RADIOLOGY REPORT PROCEDURE: MM TOMOSYNTHESIS SCREENING BI COMPARISON: MG MAMM SCREEN 3D HILDA CAD, 09/07/2021. INDICATIONS: Screening Calculator Name NCI Breast Cancer Risk Assessment Tool 5 Year Breast Cancer Risk 0.50% Lifetime Breast Cancer Risk 8.20% Personal Breast Cancer No Personal Ovarian Cancer No Treatments None Family Cancers Grandmother-maternal with colon cancer at age 70. LOCATION: [facility] BREAST COMPOSITION: Heterogeneously dense,which may obscure smallmasses. FINDINGS: DIAGNOSTIC CATEGORY 1--NEGATIVE. RIGHT BREAST: No significant suspicious finding. No significant changehas occurred. LEFT BREAST: No significant suspicious finding. No significant changehas occurred. RECOMMENDATIONS: ROUTINE MAMMOGRAM AND CLINICAL EVALUATION IN 12 MONTHS. PLEASE NOTE: A NORMAL MAMMOGRAM DOES NOT EXCLUDE THE POSSIBILITY OFBREAST CANCER. A CLINICALLY SUSPICIOUS PALPABLE LUMP SHOULD BE BIOPSIED. Dictated by: Vu Olivas M.D. on 01/05/2023 at 11:43 Approved by: Vu Olivas M.D. on 01/05/2023 at 11:45 Dictated By: Vu Olivas M.D. Signed By:01/05/23 1146 DD/ 1145 TD/TT: Qa Lead: Aidan Bradford DO [facility] Final Resu lt * Pap Smear (12/08/2022 2:05 PM EDT) Swab Cervical swab / Unknown Aidan Bradford DO LAB CYTOLOGY ORDERABLES Sherlyn l Result from Last 3 Months or Most Recently Relevant to Health Maintenance Insurance [employer] Care Teams Flexographic Press Operator Relationship Specialty Start Date End Date Marques Swenson DO PCP - General 12/08/22
--- OUTSIDE RECORDS SUMMARY | 2024-10-23 07:44 | XMS_ITS | Clinical Summary ---
Author Organization [facility] tem Address [id number] [address] [place] [address] Care Team Providers Care Materials Management Clerk Name Role Phone Marques Swenson DO Primary Care Provider Unavailabl e Social History Tobacco Use Types Packs/Day Years Used Date Smoking Tobacco: Never Assessed Childcare Answer Date Recorded Childcare Unknown 07/19/2018 Employment Answer Date Recorded Employment Unknown 07/19/2018 Purpose - Life Answer Date Recorded Purpose and direction in life Unknown Comments Unknown Sex and Gender Information Value Date Recorded Sex Assigned at Not on file Legal Sex Female 12:02 PM EDT Gender Identity Not on file Sexual Orientation Not on file Plan of Treatment Health Maintenance Due Date Last Done Comments Depression Screening 1993 Tobacco Screening 1993 Adult BMI Screening 1999 COVID-19 Vaccine (2023-2 5 season) 2023 12/01/2022, 08/25/2021, 01/06/2021, Additional history exists Influenza Vaccine 10/08/2024 12/17/2021, , 12/07/2019, Additional history exists Pap Smear 12/08/2025 12/08/2022 DTaP,Tdap and Td Vaccines (2 - Td or Tdap) 12/28/2031 12/27/2021 Medical Devices Not on file Insurance [employer] Care Teams Materials Management Clerk Relationship Specialty Start Date End Date Marques Swenson DO PCP - General Family Medicine 05/15/19
--- OUTSIDE RECORDS SUMMARY | 2024-10-23 07:44 | XMS_ITS | Clinical Summary ---
Author Organization [facility] Address [address] [facility], [address] [place] [address] Care Team Providers Care Pharmacy Technician Per Diem Name Role Phone Unavailable Primary Care Provider Unavailabl e Allergies Active Allergy Reactions Criticality Noted Date Comments Sulfa Antibiotics 05/23/2013 Medications FLUoxetine (PROZAC) 20 MG capsule Take 20 mg by mouth daily. Active docusate sodium (COLACE) 100 MG capsule Take 100 mg by mouth 2 times daily. Active ferrous gluconate (FERGON) 324 (38 FE) MG tablet Take 324 mg by mouth daily (with breakfast). Active Polyethylene Glycol 3350 (MIRALAX PO) Take by mouth. Ac tive vitamin D (CHOLECALCIFERO L) 1000 UNIT TABS tablet Take 1,000 Units by mouth daily. Active oxybutynin (DITROPAN-XL) 10 MG CR tablet Take 10 mg by mouth daily. Active calcium carbonate (OSCAL) 500 MG TABS tablet Take 500 mg by mouth daily. Active Fexofenadine HCl (SUE PO) Take by mouth. Activ e naproxen (NAPROSYN) 500 MG tablet Take 500 mg by mouth 2 times daily (with meals). Active levalbuterol (XOPENEX) 1.25 MG/3ML nebulizer solution Take 1 ampule by nebulization every 4 hours as needed for Wheezing. Active traMADol (ULTRAM) 50 MG tablet Take 50 mg by mouth every 6 hours as needed for Pain. Active mometasone-form oterol (DULERA) 200-5 MCG/ACT inhaler Inhale 2 puffs into the lungs every 12 hours. Active albuterol (ACCUNEB) 0.63 MG/3ML nebulizer solution Take 1 ampule by nebulization every 6 hours as needed for Wheezing. Active Social History Tobacco Use Types Packs/Day Years Used Date Smoking Tobacco: Never Assessed Comments Unknown Sex and Gender Information Value Date Recorded Sex Assigned at Not on file Legal Sex Female 10:15 AM EST Gender Identity Not on file Sexual Orientation Not on file Plan of Treatment Not on file
--- OUTSIDE RECORDS SUMMARY | 2024-10-23 07:44 | XMS_ITS | Encounter Summary ---
Author Organization [facility] Address [address] [place] [address] Care Team Providers Care Shop Mechanic Helper Name Role Phone Marques Swenson DO Primary Care Provider [phone] Encounter Details Date Type Department Care Team ([facility] Contact Info) Description 01/05/2023 Clinisync Result Encounter [facility] External Department Unsolicited Aidan Bradford DO [address] [place] [address] Social History Tobacco Use Types Packs/Day Years Used Date Smoking Tobacco: Every Day Cigarettes Smokeless Tobacco: Never Alcohol Use Standard Drinks/Week Comments Yes 0 (1 standard drink = 0.6 oz pure alcohol) Caffeine intake: 2-3 cups per day AUDIT-C Answer Date Recorded Q1: How often do you have a drink containing alc ohol? Monthly or less 12/08/2022 Q2: How many drinks containi ng alcohol do you have on a typical day when you are drinking? 1 or 2 12/08/2022 Q3: How often do you have si x or more drinks on one occasion? Never 12/08/2022 PHQ-2 Answer Date Recorded Patient Health Questionnaire-2 Score 0 12/08/2022 Comments No Sex and Gender Information Value Date Recorded Sex Assigned at Not on file Legal Sex Female 6:57 PM EDT Gender Identity Not on file Sexual Orientation Not on file documented as of this encounter Plan of Treatment Upcoming Encounters Date Type Department Care Team ([facility] Contact Info) Description 12/12/2024 2:00 PM EST [facility] [address] [address] [place] [id number] Sanchez, Aidan D, DO [address] [place] [address] documented as of this encounter Procedures Procedure Name Priority Date/Time Associated Diagnosis Comments MM TOMOSYNTHESIS SCREENING BI 01/05/2023 11:45 AM EST documented in this encounter Results * MM TOMOSYNTHESIS SCREENING BI (01/05/2023 11:45 AM EST) Anatomical Region Laterality Modality Other 01/05/2023 11:4 5 AM EST Narrative 01/05/2023 11:45 AM EST The [address] [address] Mammography Report Signed Patient: GENESIS BOYRE MR#: [id number] : 1980 Acct:[id number] Age/Sex: 42 / F ADM Date: 12/31/22 Loc: MAMMO Attending Dr: AIDAN BRADFORD Ordering Physician: AIDAN BRADFORD Results: Date of Service: 12/31/22 Follow Up: Procedure(s): MM tomosynthesis screening BI Accession Number(s): [id number] cc: AIDAN BRADFORD ; Physician,Non-Staff M.D. Patient Name: GENESIS BOYER MR#: [id number] : 1980 Exam Date: 12/31/2022 Ordering Doctor: [...] colon cancer at age 71. LOCATION: [facility] BREAST COMPOSITION: Heterogeneously dense,which may obscure [...] Signed By: 01/05/23 1146 DD/ 1145 TD/TT: Pharmacologist: Procedure Note Radiology, Radiologist, MD - 01/05/2023 [place] [address] Mammography Report Signed Patient: GENESIS BOYER AMR#: [id number] : 1980Acct:[id number] Age/Sex: 42 / FADM Date: 12/31/22 Loc: MAMMO Attending Dr: AIDAN BRADFORD Ordering Physician: AIDAN BRADFORDResults: Date of Service: 12/31/22Follow Up: Procedure(s): MM tomosynthesis screening BI Accession Number(s): [id number] cc: AIDAN BRADFORD ; Physician,Non-Staff Harsh Patient Name: GENESIS BOYER MR#: [id number] : 1980 Exam Date: 12/31/2022 Ordering Doctor: [...] colon cancer at age 71. LOCATION: [facility] BREAST COMPOSITION: Heterogeneously dense,which may obscure [...] M.D. Signed By:01/05/23 1146 DD/ 1145 TD/TT: Pharmacologist: Aidan Bradford DO [facility] Final Resu lt documented in this encounter Visit Diagnoses Not on filedocumented in this encounter Care Teams Shop Mechanic Helper Relationship Specialty Start Date End Date Marques Swenson DO PCP - General 12/08/22 documented as of this encounter
--- OUTSIDE RECORDS SUMMARY | 2024-10-23 07:44 | XMS_ITS | CCD ---
Author Organization [facility] Care Team Providers Care Cake Former Name Role Phone Tanvi Donaldson Unavailable Mast, Brittany Unavailable EVERARDO, DR MOURA Attending Unavailable KARASIK, DR MOURA Admitting Unavailable KARASIK, DR MOURA Consulting Unavailable REQUEST, DR CROSS LISTED Primary Care Unavaila ble KARASIK, DR MOURA Admitting Unavailable KARASIK, DR MOURA Consulting Unavailable KARASIK, DR MOURA Attending Unavailable OSCAR, DR VU Jimenez Consulting Unavailable Celia Thorpe Unavailable Brittany Swenson MD Primary Care Provider DESTINEE DORAN Attending Unavailable Mast DO, Brittany Attending Provider Mast, Brittany Attending Unavailable Mast, Brittany Admitting Unavailable NO FAMILY, PHYSICIAN Primary Care Unavailable DESTINEE PADILLA Referring Unavailable DESTINEE PADILLA Attending Unavailable NO FAMILY, PHYSICIAN Primary Care Provider Unava ilable ANTHONY STILL Attending Unavailable MAST, BRITTANY E Referring Unavailable ANTHONY STILL Attending Unavailable MAST, BRITTANY E Primary Care Physician ANAMIKA LACEY Referring Unavailable MAST, BRITTANY D Primary Care Unavailable ANAMIKA LACEY Referring Unavailable MAST, BRITTANY D Primary Care Unavailable Allergies Allergy Classification Reported Allergen(s) Allergy Type Date of Onset Reaction(s) Facility (17 sources) Jeferson; Translations: [JEFERSON] Propensity to adverse reactions 12-08-19 anaphylaxis [facility] (20 sources) Latex; Translations: [latex] Drug allergy 12-08-19 Skin irritation (disorder), Swelling (finding) [facility] Other (1 source) jeferson root Drug Allergy 12-08-19 [facility] (1 source) Sulfonamides (Antibiotic) Drug Intolerance 05-24-19 14 [facility] (1 source) Jeferson extract Drug Allergy 02-09-19 25 [facility] Repository (1 source) Sulfonamides (Antibiotic); Translations: [SULFA (SULFONAMIDE ANTIBIOTICS)] Propensity to adverse reactions to drug (disorder) 05-24-19 14 [facility] Repository (1 source) Jeferson extract; Translations: [jeferson] Drug Allergy Anaphylaxis (disorder) [facility] Medications Current Medications Medication Drug Class(es) Dates Sig (Normalized) Sig (Original) ascorbic acid 500 mg oral capsule (7 sources) Vitamin C Start: 06-21-2023 take 1 tablet by mouth once daily Ascorbic Acid (Vitamin C) 500 mg capsule Active 1 TAB PO Daily June 21, 2023 12:00am FreeTextSi tablet Orally Daily; Note: Source Status: Taking; Provider: Messi Mohan ( ) busPIRone hydrochloride 15 mg oral tablet (20 sources) Start: 03-23-2024 take 2 tablets by mouth once daily in the evening busPIRone 15 mg Tab 30 mg, Oral, qPM, Refills(s) 0 Start Date: 03/23/24 Status: Ordered Start: 10-04-2023 End: 04-02-2024 take 1 tablet by mouth twice daily Buspirone 15 mg tablet Active 0 .ROUTE .COMPLEX 60 April 02, 2024 7:52am Take 1 tablet by mouth twice daily Start: 12-07-2022 End: 10-04-2023 take 1 tablet by mouth twice daily Buspirone 15 mg tablet Discontinued 1 TAB PO Twice daily June 21, 2023 12:00am October 04, 2023 8:21am FreeTextSig: Take 1 tablet by mouth twice daily; Note: Source Status: Taking; Refills: 5; Provider: Messi Zaragoza Start: 11-15-2019 take 1 tablet by tommie th every twelve hours busPIRone HCl 10 MG 1 tablet Orally Twice a day for 30 days Nov, Active Calcium (1 source) Phosphate Binder, Calcium take 500 mg by mouth in the morning CALCIUM PO Take 500 mg by mouth in the morning. Active cholecalciferol 0.025 mg oral tablet (1 source) Vitamin D take 1 tablet by mouth in the morning cholecalciferol (Vitamin D-3) 25 MCG (1000 UT) tablet Take 1,000 Units by mouth in the morning. Active DULoxetine 60 mg delayed release oral capsule (20 sources) Serotonin and Norepinephrine Reuptake Inhibitor Start: take 1 capsule by mouth once daily Duloxetine 60 mg capsule,delayed release(DR/EC) Active 0 .ROUTE .COMPLEX 90 November 25, 2023 8:09am Take 1 capsule by mouth once daily Start: 06-21-2023 End: 11-25-2023 take 1 capsule by mouth once daily Duloxetine 60 mg capsule,delayed release(DR/EC) Discontinued 60 MG PO Daily June 21, 2023 12:00am November 25, 2023 8:09am FreeTextSig: Take 1 capsule by mouth once daily; Note: Source Status: Taking; Refills: 5; Provider: Messi Zaragoza ferrous gluconate 324 mg oral tablet (1 source) take 1 tablet by mouth at mealtime ferrous gluconate (Fergon) 324 (38 Fe) MG tablet Take 324 mg by mouth in the morning. Take with meals. Active FLUoxetine 10 mg oral capsule (1 source) Serotonin Reuptake Inhibitor Start: 03-23-19 FLUoxetine 10 mg Cap Oral, Refills(s) 0 Start Date: 03/23/24 Status: Ordered fluticasone propionate 0.05 mg/actuat metered dose nasal spray (4 sources) Corticosteroid Start: 07-22-19 take 2 spray(s) nasal route once daily Fluticasone Propionate 50 MCG/ACT 2 sprays Nasally Once a day for 14 day(s) Jul, Active Start: 07-21-2022 take 2 spray(s) nasa l route once daily Fluticasone Propionate 50 MCG/ACT 2 sprays Nasally Once a day for 14 day(s) Jul, Active ketorolac tromethamine 10 mg oral tablet (2 sources) Nonsteroidal Anti-inflammatory Drug, Cyclooxygenase Inhibitor Start: 03-23-2024 End: 03-28-2024 take 1 tablet by mouth every six hours as needed for pain ketorolac 10 mg Tab 10 mg = 1 tab(s), Oral, q6hr, PRN for pain, do not take mobic/meloxicam same day as this medication., X 5 day(s), # 12 tab(s), Refills(s) 0, Pharmacy: [id number], 167, cm, 03/23/24 9:30:00 EST, Height/Length Dosing, 78.5, kg, 03/23/24 9:30:00 EST, Weight Dosing Start Date: 03/23/24 Stop Date: 03/28/24 Status: Ordered Start: 07-01-2023 take 1 tablet by tommie th three times daily as needed ketorolac (Toradol) 10 MG tablet Take 1 tablet by mouth 3 (three) times a day as needed 07/01/2023 Active Multi For Her (10 sources) take 1 tablet by mouth once daily Multi For Her 1 Tablet Orally daily Active Multiple Vitamin (MULTIVITAMIN PO) (1 source) Start: 06-21-2023 Multiple Vitamin (MULTIVITAMIN PO) 1 tablet 06/21/2023 Active Multivitamin (Daily Multi-Vitamin) tablet (5 sources) Start: 06-21-2023 take 1 tablet by mouth once daily Multivitamin (Daily Multi-Vitamin) tablet Active 1 TAB PO Daily June 21, 2023 12:00am Start: 06-21-2023 take 1 tablet by tommie th once daily Multivitamin (Daily Multi-Vitamin) tablet Active 1 TAB PO Daily June 20, 2023 11:00pm tamsulosin hydrochloride 0.4 mg oral capsule (1 source) alpha-Adrenergic Brenda Start: 03-23-2024 take 1 capsule by mouth once daily Flomax 0.4 mg Cap 0.4 mg = 1 cap(s), Oral, Daily, # 30 cap(s), Refills(s) 0, Pharmacy: [id number], 167, cm, 03/23/24 9:30:00 EST, Height/Length Dosing, 78.5, kg, 03/23/24 9:30:00 EST, Weight Dosing Start Date: 03/23/24 Status: Ordered Vitamin C 500 MG (9 sources) take 1 tablet by mouth once daily Vitamin C 500 MG 1 tablet Orally Daily Active Wegovy 1 MG/0.5ML solution auto-injector (1 source) inject 1 mg by subcutaneous injection every week Wegovy 1 MG/0.5ML solution auto-injector INJECT 1MG (0.5ML) SUBCUTANEOUSLY ONCE EVERY WEEK Active Completed/Discontinued Medications Medication Drug Class(es) Dates Sig (Normalized) Sig (Original) [id number] 200 actuat albuterol 0.09 mg/actuat metered dose [...] mg / clavulanate 125 mg oral tablet (6 sources) Penicillin-class Antibacterial Start: 06-07-2024 End: 06-19-2024 take 1 tablet by mouth twice daily Amoxicillin-Pot Clavulanate 875-125 mg tablet Discontinued 1 TAB PO Twice daily 26 11June 07, 2024 12:00am June 19, 2024 4:32pm Start: 07-21-2022 take 1 tablet by tommie th every twelve hours Amoxicillin-Pot Clavulanate 875-125 MG 1 tablet Orally every 12 hrs for 10 day(s) Jul, Not-Taking/PRN estradiol 1 mg oral tablet (8 sources) Estrogen Start: 06-21-2023 End: 02-10-2024 take 1 tablet by mouth once daily Estradiol 1 mg tablet Discontinued 1 TAB PO Daily June 21, 2023 12:00am February 10, 2024 12:06pm FreeTextSi tablet Orally Once a day; Note: Source Status: Taking; Provider: Messi Mohan ( ) take 1 tablet by tommie th every twenty-four hours Estradiol 1 MG 1 tablet Orally Once a day Active fluconazole 150 mg oral tablet (9 sources) Azole Antifungal Start: 03-06-2024 End: 06-07-2024 take 1 tablet by mouth once Fluconazole 150 mg tablet Discontinued 150 MG PO Once March 06, 2024 1:00am June 07, 2024 11:30am Start: 11-24-2021 take 1 tablet by mouth once Di flucan 150 MG 1 tablet Orally once for 1 day Take 1 tablet p.o. upon onset of symptoms of vaginal yeast infection Dec, Not-Taking meloxicam 15 mg oral tablet (20 sources) Nonsteroidal Anti-inflammatory Drug Start: 06-21-2023 End: 02-10-2024 take 1 tablet by mouth once daily Meloxicam 15 mg tablet Discontinued 15 MG PO Daily February 10, 2024 12:20pm February 10, 2024 12:33pm FreeTextSig: Take 1 tablet by mouth once daily for 90 days; Note: Source Status: Not-Takingundefined PRN; Refills: 1; Qty: 90 Tablet; Provider: Messi Mohan ( ) Start: 07-16-2021 take 1 tablet by tommie th every twenty-four hours Meloxicam 15 MG 1 tablet Orally Once a day for 90 days Jul, Active mupirocin 0.02 mg/mg topical ointment (4 sources) [...] Orally bid for 5 day(s) Jul, Not-Taking/PRN Semaglutide (Weight Loss) (15 sources) Start: 02-02-2024 End: 06-07-2024 inject 1 mg by subcutaneous injection every week Semaglutide (Weight Loss) (Wegovy) 1 mg/0.5 mL pen injector Discontinued 0 .ROUTE .COMPLEX 4 February 02, 2024 9:03am June 07, 2024 12:02pm INJECT 1MG (0.5ML) SUBCUTANEOUSLY ONCE EVERY WEEK Start: 02-02-2024 inject 1 mg by subcu taneous injection every week Semaglutide (Weight Loss) (Wegovy) 1 mg/0.5 mL pen injector Active 0 .ROUTE .COMPLEX 4 February 02, 2024 8:03am INJECT 1MG (0.5ML) SUBCUTANEOUSLY ONCE EVERY WEEK Start: 11-10-2023 End: 02-02-2024 inject 1 mg by subcutaneous injection every week Semaglutide (Weight Loss) (Wegovy) 1 mg/0.5 mL pen injector Discontinued 0 .ROUTE .COMPLEX 4 November 10, 2023 4:19pm February 02, 2024 9:03am INJECT 1MG (0.5ML) SUBCUTANEOUSLY ONCE EVERY WEEK Start: 11-10-2023 End: 02-02-2024 inject 1 mg by subcutaneous injection every week Semaglutide (Weight Loss) (Wegovy) 1 mg/0.5 mL pen injector Discontinued 0 .ROUTE .COMPLEX November 10, 2023 3:19pm February 02, 2024 8:03am INJECT 1MG (0.5ML) SUBCUTANEOUSLY ONCE EVERY WEEK Start: 10-18-2023 End: 11-10-2023 Semaglutide (Weight Loss) 1 mg/0.5 mL pen injector Discontinued 1 MG SUBCUT every week 2 October 18, 2023 12:43pm November 10, 2023 4:19pm Start: 10-18-2023 End: 11-10-2023 Semaglutide (Weight Loss) 1 mg/0.5 mL pen injector Discontinued 1 MG SUBCUT every week 2 October 18, 2023 11:43am November 10, 2023 3:19pm Semaglutide (Weight Loss) (10 sources) Start: 08-18-2023 End: 08-19-2023 Semaglutide (Weight Loss) (W egovy) 0.25 mg/0.5 mL pen injector Discontinued 0 .ROUTE .COMPLEX 4 August 18, 2023 12:08pm August 19, 2023 10:48am INJECT 1 SYRINGE SUBCUTANEOUSLY ONCE A WEEK Start: 08-18-2023 End: 08-19-2023 Semaglutide (Weight Loss) (W egovy) 0.25 mg/0.5 mL pen injector Discontinued 0 .ROUTE .COMPLEX 4 August 18, 2023 11:08am August 19, 2023 9:48am INJECT 1 SYRINGE SUBCUTANEOUSLY ONCE A WEEK Start: 07-14-2023 End: 08-18-2023 Semaglutide (Weight Loss) (W egovy) 0.25 mg/0.5 mL pen injector Discontinued 0.25 MG SUBCUT every week 2 July 14, 2023 12:00am August 18, 2023 12:08pm administer weeks 1 through 4 of therapy Start: 07-14-2023 End: 08-18-2023 Semaglutide (Weight Loss) (W egovy) 0.25 mg/0.5 mL pen injector Discontinued 0.25 MG SUBCUT every week 2 July 13, 2023 11:00pm August 18, 2023 11:08am administer weeks 1 through 4 of therapy Semaglutide (Weight Loss) (10 sources) Start: 09-12-2023 End: 10-18-2023 inject 0.5 mg by subcutaneous injection every week Semaglutide (Weight Loss) (Wegovy) 0.5 mg/0.5 mL pen injector Discontinued 0 .ROUTE .COMPLEX September 12, 2023 7:11am October 18, 2023 12:43pm INJECT 0.5MG SUBCUTANEOUSLY EVERY WEEK Start: 09-12-2023 End: 10-18-2023 inject 0.5 mg by subcutaneous injection every week Semaglutide (Weight Loss) (Wegovy) 0.5 mg/0.5 mL pen injector Discontinued 0 .ROUTE .COMPLEX September 12, 2023 6:11am October 18, 2023 11:43am INJECT 0.5MG SUBCUTANEOUSLY EVERY WEEK Start: 08-19-2023 End: 09-12-2023 Semaglutide (Weight Loss) 0. 5 mg/0.5 mL pen injector Discontinued 0.5 MG .ROUTE every week 2 August 19, 2023 10:47am September 12, 2023 7:11am 0.5 mg every week; Start: 08-19-2023 End: 09-12-2023 Semaglutide (Weight Loss) 0. 5 mg/0.5 mL pen injector Discontinued 0.5 MG .ROUTE every week 2 August 19, 2023 9:47am September 12, 2023 6:11am 0.5 mg every week; sulfamethoxazole 800 mg / trimethoprim 160 mg oral tablet (5 sources) Dihydrofolate Reductase Inhibitor Antibacterial, Sulfonamide Antimicrobial Start: 03-06-2024 End: 03-20-2024 take 1 tablet by mouth twice daily Sulfamethoxazole-Trimethoprim (Bactrim Ds) 800-160 mg tablet Discontinued 1 TAB PO Twice daily March 06, 2024 1:00am March 20, 2024 4:05pm Tirzepatide (Weight Loss) (5 sources) Start: 06-21-2023 End: 07-14-2023 Tirzepatide (Weight Loss) (Zepbound) 2.5 mg/0.5 mL pen injector Discontinued 2.5 MG SUBCUT every week 2 June 21, 2023 12:00am July 14, 2023 12:09pm Start: 06-21-2023 End: 07-14-2023 Tirzepatide (Weight Loss) (Z epbound) 2.5 mg/0.5 mL pen injector Discontinued 2.5 MG SUBCUT every week 04 06June 20, 2023 11:00pm July 14, 2023 11:09am Problems Active Problems Problem Classification Problem Date Documented Da te Episodic/Chronic Abdominal pain (10 sources) Generalized abdominal pain; Translations: [Generalized abdominal pain] Episodic Anxiety disorders (20 sources) Anxiety; Translations: [Other specified anxiety disorders] Onset: 3 Chronic Calculus of urinary tract (12 sources) Calculus of kidney; Translations: [Kidney stone] Onset: 5 Episodic Deficiency and other anemia (1 source) Anemia 03-23-2024 Episodic Esophageal disorders (10 sources) Gastroesophageal reflux disease; Translations: [Gastro-esophageal reflux disease without esophagitis] Chronic Gastrointestinal hemorrhage (20 sources) Hematochezia; Translations: [Melena] Episodic Genitourinary symptoms and ill-defined conditions (20 sources) Dysuria; Translations: [Hematuria, unspecified] Onset: 1 Resolved: 1 Episodic Headache; including migraine (6 sources) Headache; Translations: [Headache] 11-10-2023 Episodic Hemorrhoids (10 sources) Internal hemorrhoids; Translations: [Other hemorrhoids] Episodic Immunizations and screening for infectious disease (3 sources) Encounter for screening for human papillomavirus (HPV); Translations: [Encounter for immunization] Onset: 2 Episodic Mood disorders (1 source) Depressive disorder 03-23-2024 Chronic Mycoses (3 sources) Tinea unguium; Translations: [Onychomycosis] Episodic Open wounds of extremities (1 source) Puncture wound without foreign body, right foot, initial encounter Episodic Osteoarthritis (1 source) Arthritis 03-23-2024 Chronic Other bone disease and musculoskeletal deformities (5 sources) Cervical somatic dysfunction; Translations: [Segmental and somatic dysfunction of cervical region] 11-10-2023 Episodic Other gastrointestinal disorders (10 sources) Diarrhea; Translations: [Diarrhea, unspecified] Episodic Other nervous system disorders (1 source) Chronic pain; Translations: [Other chronic pain] Onset: 3 12-07-2022 Chronic Other non-traumatic joint disorders (4 sources) Pain in right hip; Translations: [Pain in joint, pelvic region and thigh] Onset: 2 Resolved: 2 Episodic Other non-traumatic joint disorders (5 sources) Hip pain; Translations: [Pain in right hip] 02-10-2024 Episodic Other nutritional; endocrine; and metabolic disorders (6 sources) Obesity; Translations: [Obesity, unspecified] Onset: 3 12-07-2022 Chronic Other nutritional; endocrine; and metabolic disorders (5 sources) Body mass index 30+ - obesity; Translations: [Obesity, unspecified] 11-10-2023 Chronic Other nutritional; endocrine; and metabolic disorders (5 sources) Body mass index 25-29 - overweight; Translations: [Overweight] 02-10-2024 Episodic Other nutritional; endocrine; and metabolic disorders (2 sources) Overweight; Translations: [Overweight] 02-10-2024 Episodic Other screening for suspected conditions (not mental disorders or infectious disease) (10 sources) Encounter for screening mammogram for malignant neoplasm of breast; Translations: [Encounter for screening for malignant neoplasm of cervix] Onset: 2 Episodic Other skin disorders (1 source) Localized swelling, mass and lump, neck Episodic Other skin disorders (4 sources) Ingrowing nail; Translations: [Ingrowing nail] Episodic Other skin disorders (1 source) Bilateral ingrowing nail of toe of feet; Translations: [Ingrowing nail] 06-11-2024 Episodic Other upper respiratory infections (4 sources) Sinusitis; Translations: [Chronic sinusitis, unspecified] 06-07-2024 Chronic Other upper respiratory infections (5 sources) Acute sinusitis, unspecified; Translations: [Acute bacterial pharyngitis] Episodic Residual codes; unclassified (1 source) Family history of malignant neoplasm of digestive organs; Translations: [FAM HX MALIG NEOPLASM DIGESTIV ORGN] Onset: 2 Episodic Sprains and strains (2 sources) Sprain of joints and ligaments of unspecified parts of neck, initial encounter; Translations: [Sprain of unspecified parts of thorax, initial encounter] Onset: 5 Episodic Substance-related disorders (1 source) Smoker 03-23-2024 Chronic Comment on above: Added secondary to d ocumentation in Social History. Past or Other Problems Problem Classification Problem Date Documented Da te Episodic/Chronic Diseases of mouth; excluding dental (2 sources) Chronic sialadenitis; Translations: [Chronic sialoadenitis] Onset: 12-07-2022 12-07-2022 Episodic Unclassified (1 source) Midline low back pain without sciatica, unspecified chronicity M54.50 Onset: 07-16-2021 Resolved: 07-16-2021 Urinary tract infections (1 source) Urinary tract infection, site not specified Onset: 12-31-2020 Resolved: 12-31-2020 Episodic Results Test Name Value Interpretation Reference Range Facility No Panel InformationOrdered By: Elayne Joe on 06-07-2024 Quick Strep (POC) [facility] Ambulatory Visit Summaryon 0 03-23-2024 Ambulatory Visit Summary Ambulatory Visit Summary [facility] Jean Claude :1980 Visit Date:03/23/2024 Ambulatory Visit Instructions Your Diagnosis Ureteral stone Your Care Team Attending Physician - ANTHONY STILL PA-C Primary Care Physician - BRITTANY SWENSON DO Referring Physician - BRITTANY SWENSON DO This Is Your Medications List ketorolac (ketorolac 10 mg Tab) tamsulosin (Flomax 0.4 mg Cap) Contact prescribing physician if questions or concerns busPIRone (busPIRone 15 mg Tab) fluoxetine (FLUoxetine 10 mg Cap) meloxicam (meloxicam 15 mg Tab) Procedures Performed Bilateral tubal ligation, Colonoscopy, Partial hysterectomy. Discharge Vitals Heart Rate (Peripheral) 78 Respiratory Rate 18 Blood Pressure 121/74 Height 167 cm Height 66 in Weight 78.5 kg Weight 173.063 lb BMI 28.15 What to do next Scheduled Follow-Up Appointments Tuesday 3:00 PM EDT With: ANTHONY STILL PA-C Where: [facility] [address] [place] [address]- You Need to Schedule the Following Appointments Follow Up with ANTHONY STILL PA-C, URL When: In 1 month Where: [address] [place] [address] Medications What How Much When Instructions New ketorolac (ketorolac 10 mg Tab) 1 Tablets By Mouth Every 6 hours as needed for for pain Duration: 5 Days do not take mobic/ meloxicam same day as this medication. Pickup at [facility] New tamsulosin (Flomax 0.4 mg Cap) 1 Capsules By Mouth Every day Pickup at [facility] Unchanged busPIRone (busPIRone 15 mg Tab) 30 Milligram By Mouth Once a day (in the evening) Contact prescribing physician if questions or concerns Unchanged fluoxetine (FLUoxetine 10 mg Cap) By Mouth Contact prescribing physician if questions or concerns Unchanged meloxicam (meloxicam 15 mg Tab) 1 Tablets Contact prescribing physician if questions or concerns Pharmacy Information [id number]: [address] [place], [place] [id number] [phone] Allergies Latex (Skin irritation, Swelling) jeferson (Anaphylaxis) Problems Ongoing - Any problem that you are currently receiving treatment for. Anemia Arthritis Depression Headache Kidney stones Smoker Ureteral stone Patient Survey You may receive a survey via text or e-mail asking about your office visit. Please share your experience with us by completing your survey. We appreciate your feedback and thank you for choosing us for your care. Education Materials Kidney Stones Kidney stones are rock-like masses that form inside of the kidneys. Kidneys are organs that make pee (urine). A kidney stone may move into other parts of the urinary tract, including: ??? The tubes that connect the kidneys to the bladder (ureters). ??? The bladder. ??? The tube that carries urine out of the body (urethra). Kidney stones can cause very bad pain and can block the flow of pee. The stone usually leaves your body through your pee. A doctor may need to take out the stone. What are the causes? Kidney stones may be caused by: ??? Too much calcium in the body. This may be caused by too much parathyroid hormone in the blood. ??? Uric acid crystals in the bladder. The body makes uric acid when you eat certain foods. ??? Narrowing of one or both of the ureters. ??? A kidney blockage that you were born with. ??? Past surgery on the kidney or the ureters. What increases the risk? You are more likely to develop this condition if: ??? You have had a kidney stone in the past. ??? Other people in your family have had kidney stones. ??? You do not drink enough water. ??? You eat a diet that is high in protein, salt (sodium), or sugar. ??? You are very overweight (obese). What are the signs or symptoms? Symptoms of a kidney stone may include: ??? Pain in the side of the belly, right below the ribs. Pain usually spreads to the groin. ??? Needing to pee often or right away. ??? Pain when peeing. ??? Blood in your pee. ??? Feeling like you may vomit (nauseous). ??? Vomiting. ??? Fever and chills. How is this treated? Treatment depends on the size, location, and makeup of the kidney stones. The stones will often pass out of the body when you pee. You may need to: ??? Drink more fluid to help pass the stone. ? In some cases, you may be given fluids through an IV tube at the hospital. ??? Take medicine for pain. ??? Change your diet to help keep kidney stones from coming back. Sometimes, you may need: ??? A procedure to break up kidney stones using a beam of light (laser) or shock waves. ??? Surgery to remove the kidney stones. Follow these instructions at home: Medicines ??? Take [id number] and prescription medicines only as told by your doctor. ??? Ask your docto (more content not included)... Normal [facility] Urology Office/Clinic Noteon 03-23-2024 Urology Office/Clinic Note Urology Office/Clinic Note Chief Complaint ureteral stone HPI Staff 43yr old female pt referred by Dr. Swenson for ER f/u - stones. CT w/o 03/13/24 showed punctate calcification L UVJ with minimal-mild hydroureteronephrosi s. Urine culture was negative. ER gave 5d Flomax. Pt has not seen any stones pass but hasn't been straining urine. KUB on 03/20/24 showed no definite urinary tract calculi. Still having pain on and off. Dysuria: denies Incomplete bladder emptying: since diagnosed with kidney stones - yes Hematuria: 2 weeks ago, saw blood in her urine for about 1 day. Went to ER. No blood since. Frequency: recently has been urinating more frequently Urgency: sometimes Nocturia: maybe 1x Stream: good stream Leaking: only when coughing/sneezing Post void dripping: denies Wearing pads/ Depends: denies Urge incontinence: denies Stress incontinence: small amount Incontinence without Sensory Awareness: denies Abdominal pain: left lower abdominal Flank pain: about 1 week ago had severe pain on her left side, since then she has had pain 3x but not as severe Sexual complaints: _ Review of Systems PHQ Score Initial Depression Screen Score: 0 SCORE no fever, chills, malaise, myalgia. no rash/lesions. no chest pain, palpitations, or SOB. no nausea, vomiting. Physical Exam Vitals & Measurements HR: 78(Peripheral) RR: 18 BP: 121/74 HT: 66 in HT: 167 cm WT: 78.5 kg WT: 173.063 lb BMI: 28.15 General: nontoxic, NAD Mouth: moist mucosa Lungs: normal respiratory effort Cardio: regular rate, good distal perfusion Abdomen: nondistended, no suprapubic distention or tenderness, no CVA tenderness Neurologic: Grossly normal Skin: No rashes or suspicious lesions Assessment/Plan 1. Ureteral stone (N20.1: Calculus of ureter) First episode. 1 punctate stone at [facility]. No others mentioned in kidneys on CT. Still having intermittent pain, mild. No vomiting. Nontoxic. UA completed in office today shows no microhematuria or signs of infection. Will extend course of Flomax and NSAIDs (not to take same day as Mobic). Risks/benefits/side effects discussed. Try MET another few weeks. If sx persist, may need to repeat CT vs IVP. Call or ER in meantime if sx worsen. Ordered: E&M of New Patient Moderate 45-59 Min 35209 Orders: ketorolac, 10 mg = 1 tab(s), Oral, q6hr, PRN for pain, do not take mobic/meloxicam same day as this medication., X 5 day(s), # 12 tab(s), Refills(s) 0, Pharmacy: [id number], 167, cm, 03/23/24 9:30:00 EST, Height/Length Dosing, 78.5, kg, 03/23/24 9:30:... tamsulosin, 0.4 mg = 1 cap(s), Oral, Daily, # 30 cap(s), Refills(s) 0, Pharmacy: [facility], 167, cm, 03/23/24 9:30:00 EST, Height/Length Dosing, 78.5, kg, 03/23/24 9:30:00 EST, Weight Dosing Body Mass Index (BMI) documented 3008F Current tobacco smoker 1034F Depression Screening Negative 3352F Influenza immunization status assessed 1030F Medication list documented in medical record 1159F Most recent diastolic blood pressure <80 mm Hg 3078F Review of all meds by a prescribing practitioner or clinical pharmacist documented in EHR 1160F Systolic BP <130 mm Hg (Most Recent) 3074F Urnls Dip Stick Auto w/o Microscopy POC 18140 Follow-up With When Contact Information HCEKO RIVAS, ANTHONY Zaragoza, URL In 1 month [address] [place] [address] Additional Instructions: Patient Education Kidney Stones, [id number] Problem List/Past Medical History Ongoing Anemia Arthritis Depression Headache Kidney stones Smoker Ureteral stone Historical No qualifying data Procedure/Surgical History Bilateral tubal ligation, Colonoscopy, Partial hysterectomy. Medications busPIRone 15 mg Tab, 30 mg, Oral, qPM Flomax 0.4 mg Cap, 0.4 mg= 1 cap(s), Oral, Daily FLUoxetine 10 mg Cap, Oral ketorolac 10 mg Tab, 10 mg= 1 tab(s), Oral, q6hr, PRN meloxicam 15 mg Tab, 15 mg= 1 tab(s) Allergies Latex (Skin irritation, Swelling) jeferson (Anaphylaxis) Social History Alcohol Current. Liquor. 1-2 times per month., 03/23/2024 Substance Abuse Never., 03/23/2024 Tobacco 5-9 cigarettes (between 1/4 to 1/2 pack)/day in last 30 days Tobacco Use:. Never Smokeless Tobacco Use:. Cigarettes, 03/23/2024 Family History Colorectal cancer: Grandparent. Kidney stone: Mother and Grandparent. Immunizations Vaccine Date Status diphtheria/pertussis , acel/tetanus adult 12/27/2021 Recorded influenza virus vaccine, inactivated 12/17/2021 Recorded SARS-CoV-2 (COVID-19) mRNA-1273 vaccine 08/25/2021 Recorded SARS-CoV-2 (COVID-19) mRNA-1273 vaccine 01/06/2021 Recorded SARS-CoV-2 (COVID-19) mRNA-1273 vaccine 03/10/2020 Recorded SARS-CoV-2 (COVID-19) mRNA-1273 vaccine 02/11/2020 Recorded influenza virus vaccine, inactivated 12/14/2019 Recorded influenza virus vaccine, H1N1, live 12/03/2008 Recorded Lab Results Ambulatory Point of Care Results Bilirubin Urine Dipstick: Negative (03/23/24 (more content not included)... Normal [facility] Comment on above: Result Comment: Elec tronically Signed By: ANTHONY STILL PA-C.[email or web address]\Date and Time Signed: 03/23/24 11:[address] ABDOMEN PELVIS WO IV CONT RASTon 03-13-2024 CT ABDOMEN PELVIS WO IV CONTRAST CT ABDOMEN PELVIS WO IV CONTRAST 03/13/2024 8:32 AM CLINICAL INDICATIONS: Left flank pain TECHNIQUE: Multidetector CT axial slices were obtained without IV contrast. Multiplanar reformats, MIP, volume rendered 3-D images were generated on a separate workstation and reviewed to further define anatomy and possible pathology. All CT scans at this facility use dose modulation, iterative reconstruction, and/or weight based dosing when appropriate to reduce radiation dose to as low as reasonably achievable COMPARISON: 12/18/2014. FINDINGS: The lower chest is normal. Within the resolution of noncontrast technique: The liver, spleen, adrenal glands, and right kidney are normal there is a punctate calcification within the expected region of the left ureterovesicular junction best appreciated on series 3 image 470. The urinary bladder is entirely decompressed. Mild hydroureteronephrosi s. Questionable mild peripancreatic edema. Gallbladder is normal. The small bowel and colon are without evidence of obstruction or acute inflammatory change. No free fluid or free air. No acute osseous abnormalities. IMPRESSION: Punctate calcifications in the region of the left ureterovesicular junction with associated minimal hydroureteronephrosi s. Questionable mild peripancreatic inflammatory change. Correlate with lipase levels. Electronically signed: Gordy Esposito MD. Normal [facility] EDPROVon 03-13-2024 EDPROV History of Present Illness Chief Complaint Patient presents with Blood in Urine Flank Pain PT WAS SEEN AT HER PCP URINE DONE AND WAS WAITING ON CT SCAN. Initial evaluation completed by Dr. Padilla at 8:23 am. Zohaib Cihlders is a 43 y/o female presenting to the ED with c/o blood in urine, flank pain. Pt reports that last week, she woke up and noticed blood in her toilet and went to her primary care in which her urine tested negative for a UTI. Pt is waiting for her insurance to approve her CT scan. Pt also describes a ripping pain in her flank and increased pressure near her lower abdomen causing her to urinate more frequently. Pt states she took motrin at 5:30 am this morning, but it didn't relieve the pain. History provided by: Patient Blood in Urine Irritative symptoms include frequency. Associated symptoms include flank pain. Nya Coma Scale Score: 15 History History reviewed. No pertinent past medical history. History reviewed. No pertinent surgical history. No family history on file. Social History Tobacco Use Smoking status: Every Day Types: Cigarettes Smokeless tobacco: Never Vaping Use Vaping status: Never Used Substance Use Topics Alcohol use: Yes Comment: SOME Drug use: Never Review of Systems Review of Systems Genitourinary: Positive for flank pain, frequency and hematuria. Physical Exam ED Triage Vitals Temp Heart Rate Resp BP 03/13/24 0802 03/13/24 0808 03/13/24 0803/13/24807 36.5 ???C (97.7 ???F) 88 20 137/79 SpO2 Temp src Heart Rate Source Patient Position 03/13/24807 -- -- 03/13/24807 100 % Sitting BP Location FiO2 (%) 03/13/24807 -- Right arm Physical Exam Vitals and nursing note reviewed. Constitutional: General: She is not in acute distress. Appearance: She is well-developed. HENT: Head: Normocephalic and atraumatic. Eyes: Conjunctiva/sclera: Conjunctivae normal. Pupils: Pupils are equal, round, and reactive to light. Cardiovascular: Rate and Rhythm: Normal rate and regular rhythm. Pulses: Normal pulses. Heart sounds: Normal heart sounds. No murmur heard. Pulmonary: Effort: Pulmonary effort is normal. No respiratory distress. Breath sounds: Normal breath sounds. Abdominal: Palpations: Abdomen is soft. Tenderness: There is no abdominal tenderness. Musculoskeletal: General: No swelling. Normal range of motion. Cervical back: Normal range of motion and neck supple. Skin: General: Skin is warm and dry. Capillary Refill: Capillary refill takes less than 2 seconds. Neurological: General: No focal deficit present. Mental Status: She is alert and oriented to person, place, and time. Procedures ED Course & MDM Diagnoses as of 03/13/24 1001 Nephrolithiasis Medical Decision Making I, Ewa strauss, documented on behalf of Dr. Padilla. Chief complaint blood in urine, flank pain Plan of Care: POCT urinalysis dipstick manually resulted, POCT , urine manually resulted, CT abdomen pelvis wo IV contrast, Toradol injection [address] Padilla has independently reviewed the radiologist report. Exam findings are as follows: CT abdomen pelvis wo IV contrast Final Result Punctate calcifications in the region of the left ureterovesicular junction with associated minimal hydroureteronephrosi s. Questionable mild peripancreatic inflammatory change. Correlate with lipase levels. Electronically signed: Gordy Esposito MD. RESULTS --------- Labs: Labs Reviewed POCT URINALYSIS DIPSTICK Result Value Color, UA Eloise Clarity, UA Clear Glucose, UA Negative BILIRUBIN, UA 1+ Ketones, UA Automated +1 Spec Grav, UA 1.025 Blood, UA Negative pH, UA 7.0 Protein, UA 2+ Urobilinogen, UA 1.0 Leukocytes, UA Negative Nitrite, UA Negative QC Pass/Fail Passed QC LOT # [id number] QC Expiration Date 01/11/29 POCT , URINE Preg Test, Ur Negative QC Pass/Fail Passed QC LOT # [id number] QC Expiration Date 02/05/18 Radiology: CT abdomen pelvis wo IV contrast Final Result Punctate calcifications in the region of the left ureterovesicular junction with associated minimal hydroureteronephrosi s. Questionable mild peripancreatic inflammatory change. Correlate with lipase levels. Electronically signed: Gordy Esposito MD. ----- NURSING NOTES AND VITALS REVIEWED ------- The nursing notes within the ED encounter and vital signs as below have been reviewed. BP 128/74 Pulse 79 Temp 36.5 ???C (97.7 ???F) Resp 14 Ht 1.676 m (5' 6 ) Wt 78 kg (172 lb) SpO2 100% BMI 27.76 kg/m??? -- PROGRESS NOTES -- The plan has been discussed with the patient regarding the diagnosis and prognosis. All questions have been answered at this time and they (more content not included)... Normal [facility] - Chemistry and C hemistry - challengeon 03-06-2024 Bilirubin Ql (U) Negative [facility] Glucose (U) [Mass/Vol] Negative [facility] Ketones Ql (U) Negative [facility] pH (U) 6.5 [pH] [facility] Specific gravity (U) [Rel density] 1.025 [facility] Urobilinogen (U) [Mass/Vol] 0.2 mg/dL [facility] Laboratory - Specimen inform ationon 03-06-2024 Appearance (U) Cloudy [facility] Color (U) Brown [facility] Laboratory - Urinalysison Leukocyte esterase Test strip Ql (U) Negative [facility] Nitrite Ql (U) Negative [facility] Protein Ql (U) Negative [facility] No Panel Informationon 03-06 Urine Occult Blood [facility] Urine Cultureon 03-06-2024 Bacteria identified Cx Nom (U) 25,000 colonies/ml mixed bacterial skin contaminants 2 Days PERFORMED BY: [place] [address] PATHOLOGIST LAST DIPPER KUNAL GAMBOA M.D. Normal [facility] Comment on above: Performed By: #### C UU #### [address] Urine cultureOrdered By: Natasha Swenson on 03-06-2024 Bacteria identified Cx Nom (U) Urine culture [facility] MG MAMM SCREEN 3D HILDA CADon 09-07-2021 MG MAMM SCREEN 3D HILDA CAD Patient: ZOHAIB CHILDERS Exam Date: 09/07/2021 : 1980 Gender:F Ordering : DR MARTELL MCGEE . Admission #: [id number] Family : Order #: [id number] CLICK HERE TO VIEW EXAM RADIOLOGY REPORT PROCEDURE: MAMMOGRAM SCREENING 3D BILATERAL CAD COMPARISON: None. INDICATIONS: Screening mammography Calculator Name NCI Breast Cancer Risk Assessment Tool 5 Year Breast Cancer Risk 0.50% Lifetime Breast Cancer Risk 8.30% Personal Breast Cancer No Personal Ovarian Cancer No Treatments None Family Cancers Grandmother-maternal with colon cancer at age 70. LOCATION: [facility] BREAST COMPOSITION: Heterogeneously dense,which may obscure [...] Olivas M.D. on 09/07/2021 at 12:48 Normal [facility] PAP ACOG PANEL 2: 30 to 65on 08-14-2021 . . Normal [facility] Comment on above: Result Comment: Perf ormed at: WB Performed By: #### [id number] #### [facility] [address] [address] [address] Nayeli Robertson Age Gdln ACOG Testing 30-65 Normal [facility] Comment on above: Performed By: #### [id number] #### [facility] [address] [address] [address] Nayeli Robertson DIAGNOSIS: Comment Normal [facility] Comment on above: Result Comment: NEGA TIVE FOR INTRAEPITHELIAL LESION OR MALIGNANCY. SHIFT IN MICHELLE SUGGESTIVE OF BACTERIAL VAGINOSIS. Performed at: WB Performed By: #### [id number] #### [facility] [address] [address] [address] Nayeli Robertson HPV Aptima Negative Normal Negative [facility] Comment on above: Result Comment: This nucleic acid amplification test detects fourteen high-risk HPV types (16,18,31,33,35,39,45,51,52,56,58,59,66,68) without differentiation. Performed at: =G Performed By: #### [id number] #### [facility] [address] [address] [address] Nayeli Robertson Methodology: Comment Normal [facility] Comment on above: Result Comment: This liquid based ThinPrep(R) pap test was screened with the use of an image guided system. Performed at: WB Performed By: #### [id number] #### [facility] [address] [place] [address] Dr. Nayeli oRbertson Note: Comment Normal [facility] Comment on above: Result Comment: The Pap smear is a screening test designed to aid in the detection of premalignant and malignant conditions of the uterine cervix. It is not a diagnostic procedure and should not be used as the sole means of detecting cervical cancer. Both false-positive and false-negative reports do occur. . Performed at: WB Performed By: #### [id number] #### [facility] [address] [place] [address] Dr. Nayeli Robertson Performed by: Comment Normal [facility] Comment on above: Result Comment: Ale Grullon, Life Coach (ASCP) Performed at: WB Performed By: #### [id number] #### [facility] [address] [place] [address] Dr. Nayeli Robertson Specimen adequacy: Comment Normal [facility] Comment on above: Result Comment: Sati sfactory for evaluation. No endocervical component is identified. Performed at: WB Performed By: #### [id number] #### [facility] [address] [place] [address] Dr. Nayeli Robertson Urinalysis - AUTOMATEDon Appearance (U) clear [employer] Other Bilirubin Ql (U) Negative [employer] Other Color (U) pale yellow [employer] Other Glucose Ql (U) Negative [employer] Other Hemoglobin Ql (U) moderate [employer] Other Ketones Ql (U) Negative [employer] Other Leukocyte esterase Test strip Ql (U) small [employer] Other Nitrite Ql (U) Positive [employer] Other pH (U) 7.0 [pH] [employer] Other Protein Ql (U) Negative [employer] Other Specific gravity (U) [Rel density] 1.020 [employer] Other Urobilinogen (U) [Mass/Vol] 0.2 mg/dL [employer] Other Urinalysis - AUTOMATED No rt [employer] Other Vital Signs Date Time Vital Sign Value Performing Clinician Facility 06-19-2024 16:34-0400 Body height 167.64 cm [facility] 06-19-2024 16:34-0400 Body mass index (BMI) [Ratio] 26.2 kg/m2 [facility] 06-19-2024 16:34-0400 Body temperature 97.6 [degF] [facility] 06-19-2024 16:34-0400 Body weight 73.53 kg [facility] 06-19-2024 16:34-0400 Diastolic blood pressure 80 mm[Hg] [facility] 06-19-2024 16:34-0400 Heart rate 87 /min [facility] 06-19-2024 16:34-0400 Respiratory rate 18 /min [facility] 06-19-2024 16:34-0400 SaO2% (BldA) [Mass fraction] 98 % [facility] 06-19-2024 16:34-0400 Systolic blood pressure 118 mm[Hg] [facility] 06-12-2024 14:26-0400 Body height 167.64 cm [facility] 06-12-2024 14:26-0400 Body mass index (BMI) [Ratio] 26.6 kg/m2 [facility] 06-12-2024 14:26-0400 Body temperature 97.9 [degF] [facility] 06-12-2024 14:26-0400 Body weight 75.06 kg [facility] 06-12-2024 14:26-0400 Diastolic blood pressure 78 mm[Hg] [facility] 06-12-2024 14:26-0400 Heart rate 75 /min [facility] 06-12-2024 14:26-0400 Respiratory rate 18 /min [facility] 06-12-2024 14:26-0400 SaO2% (BldA) [Mass fraction] 99 % [facility] 06-12-2024 14:26-0400 Systolic blood pressure 126 mm[Hg] [facility] 06-11-2024 15:50-0400 Body height 167.64 cm [facility] 06-11-2024 15:50-0400 Body mass index (BMI) [Ratio] 27.1 kg/m2 [facility] 06-11-2024 15:50-0400 Body temperature 97.7 [degF] [facility] 06-11-2024 15:50-0400 Body weight 76.23 kg [facility] 06-11-2024 15:50-0400 Diastolic blood pressure 72 mm[Hg] [facility] 06-11-2024 15:50-0400 Heart rate 73 /min [facility] 06-11-2024 15:50-0400 Respiratory rate 18 /min [facility] 06-11-2024 15:50-0400 SaO2% (BldA) [Mass fraction] 98 % [facility] 06-11-2024 15:50-0400 Systolic blood pressure 120 mm[Hg] [facility] 06-07-2024 11:58-0400 Body height 167.64 cm [facility] 06-07-2024 11:58-0400 Body mass index (BMI) [Ratio] 27.1 kg/m2 [facility] 06-07-2024 11:58-0400 Body temperature 98.4 [degF] [facility] 06-07-2024 11:58-0400 Body weight 76.2 kg [facility] 06-07-2024 11:58-0400 Diastolic blood pressure 69 mm[Hg] [facility] 06-07-2024 11:58-0400 Heart rate 88 /min [facility] 06-07-2024 11:58-0400 Respiratory rate 14 /min [facility] 06-07-2024 11:58-0400 SaO2% (BldA) [Mass fraction] 95 % [facility] 06-07-2024 11:58-0400 Systolic blood pressure 105 mm[Hg] [facility] 03-23-2024 09:25-0500 Blood Pressure Location ANTHONY STILL [facility] 03-23-2024 09:25-0500 Diastolic blood pressure 74 mm[Hg] ANTHONY CHEKO [facility] 03-23-2024 09:25-0500 Heart rate 78 /min ANTHONY CHEKO [facility] 03-23-2024 09:25-0500 Respiratory rate 18 /min ANTHONY CHEKO [facility] 03-23-2024 09:25-0500 Systolic blood pressure 121 mm[Hg] ANTHONY CHEKO [facility] 03-20-2024 15:06-0500 Body height 167.64 cm PHYSICIAN NO [facility] 03-20-2024 15:06-0500 Body mass index (BMI) [Ratio] 27.1 kg/m2 PHYSICIAN NO [facility] 03-20-2024 15:06-0500 Body temperature 97.8 [degF] PHYSICIAN NO [facility] 03-20-2024 15:06-0500 Body weight 76.26 kg PHYSICIAN NO [facility] 03-20-2024 15:06-0500 Diastolic blood pressure 82 mm[Hg] PHYSICIAN NO [facility] 03-20-2024 15:06-0500 Heart rate 96 /min PHYSICIAN NO [facility] 03-20-2024 15:06-0500 SaO2% (BldA) [Mass fraction] 97 % PHYSICIAN NO [facility] 03-20-2024 15:06-0500 Systolic blood pressure 140 mm[Hg] PHYSICIAN NO [facility] 03-06-2024 16:41-0500 Body height 167.64 cm Brittany Mast DO Work Phone: [facility] 03-06-2024 16:41-0500 Body mass index (BMI) [Ratio] 26.8 kg/m2 Brittany Mast DO Work Phone: [facility] 03-06-2024 16:41-0500 Body temperature 97.3 [degF] Brittany Mast DO Work Phone: [facility] 03-06-2024 16:41-0500 Body weight 75.43 kg Brittany Mast DO Work Phone: [facility] 03-06-2024 16:41-0500 Diastolic blood pressure 100 mm[Hg] Brittany Mast DO Work Phone: [facility] 03-06-2024 16:41-0500 Heart rate 75 /min Brittany Mast DO Work Phone: [facility] 03-06-2024 16:41-0500 SaO2% (BldA) [Mass fraction] 97 % Brittany Mast DO Work Phone: [facility] 03-06-2024 16:41-0500 Systolic blood pressure 140 mm[Hg] Brittany Mast DO Work Phone: [facility] 02-10-2024 11:09-0500 Body height 167.64 cm Brittany Mast DO Work Phone: [facility] 02-10-2024 11:09-0500 Body mass index (BMI) [Ratio] 27.4 kg/m2 Brittany Mast DO Work Phone: [facility] 02-10-2024 11:09-0500 Body temperature 96.7 [degF] Brittany Mast DO Work Phone: [facility] 02-10-2024 11:09-0500 Body weight 77.11 kg Brittany Mast DO Work Phone: [facility] 02-10-2024 11:09-0500 Diastolic blood pressure 80 mm[Hg] Brittany Mast DO Work Phone: [facility] 02-10-2024 11:09-0500 Heart rate 84 /min Brittany Mast DO Work Phone: [facility] 02-10-2024 11:09-0500 Respiratory rate 18 /min Brittany Mast DO Work Phone: [facility] 02-10-2024 11:09-0500 SaO2% (BldA) [Mass fraction] 98 % Brittany Mast DO Work Phone: [facility] 02-10-2024 11:09-0500 Systolic blood pressure 122 mm[Hg] Brittany Mast DO Work Phone: [facility] 12-12-2023 13:38-0500 Body height 167.6 cm Destinee Doran DO Work Phone: [facility] 12-12-2023 13:38-0500 Body mass index (BMI) [Ratio] 28.41 kg/m2 Destinee Doran DO Work Phone: [facility] 12-12-2023 13:38-0500 Body weight 79.83 kg Destinee Doran DO Work Phone: [facility] 12-12-2023 13:38-0500 Diastolic blood pressure 76 mm[Hg] Destinee Manriqueer DO Work Phone: [facility] 12-12-2023 13:38-0500 Systolic blood pressure 116 mm[Hg] Destinee Sanchez DO Work Phone: [facility] 01-18-2023 16:45-0500 Body height 167.64 cm Brittany Mast Other [employer] Other 01-18-2023 16:45-0500 Body mass index (BMI) [Ratio] 31.45 kg/m2 Brittany Mast Other [employer] Other 01-18-2023 16:45-0500 Body temperature 97.6 [degF] Brittany Mast Other [employer] Other 01-18-2023 16:45-0500 Body weight 88.41 kg Brittany Mast Other [employer] Other 01-18-2023 16:45-0500 Diastolic blood pressure 84 mm[Hg] Brittany Mast Other [employer] Other 01-18-2023 16:45-0500 Respiratory rate 18 /min Brittany Mast Other [employer] Other 01-18-2023 16:45-0500 SaO2% (BldA) [Mass fraction] 99 % Brittany Mast Other [employer] Other 01-18-2023 16:45-0500 Systolic blood pressure 140 mm[Hg] Brittany Mast Other [employer] Other 01-10-2023 13:00-0500 Body height 167.64 cm Brittany Mast Other [employer] Other 01-10-2023 13:00-0500 Body mass index (BMI) [Ratio] 31.12 kg/m2 Brittany Mast Other [employer] Other 01-10-2023 13:00-0500 Body temperature 97.7 [degF] Brittany Mast Other [employer] Other 01-10-2023 13:00-0500 Body weight 87.45 kg Brittany Mast Other [employer] Other 01-10-2023 13:00-0500 Diastolic blood pressure 78 mm[Hg] Brittany Mast Other [employer] Other 01-10-2023 13:00-0500 Respiratory rate 18 /min Brittany Mast Other [employer] Other 01-10-2023 13:00-0500 SaO2% (BldA) [Mass fraction] 99 % Brittany Mast Other [employer] Other 01-10-2023 13:00-0500 Systolic blood pressure 122 mm[Hg] Brittany Mast Other [employer] Other 12-07-2022 14:30-0400 Body height 167.64 cm Brittany Mast Other [employer] Other 12-07-2022 14:30-0400 Body mass index (BMI) [Ratio] 31.02 kg/m2 Brittany Mast Other [employer] Other 12-07-2022 14:30-0400 Body temperature 97.5 [degF] Brittany Mast Other [employer] Other 12-07-2022 14:30-0400 Body weight 87.18 kg Brittany Mast Other [employer] Other 12-07-2022 14:30-0400 Diastolic blood pressure 80 mm[Hg] Brittany Mast Other [employer] Other 12-07-2022 14:30-0400 Respiratory rate 18 /min Brittany Mast Other [employer] Other 12-07-2022 14:30-0400 SaO2% (BldA) [Mass fraction] 96 % Brittany Mast Other [employer] Other 12-07-2022 14:30-0400 Systolic blood pressure 120 mm[Hg] Brittany Mast Other [employer] Other 07-21-2022 09:00-0400 Body height 167.64 cm Tanvi Kimmond Other [employer] Other 07-21-2022 09:00-0400 Body mass index (BMI) [Ratio] 30.02 kg/m2 Tanvi Anika Other [employer] Other 07-21-2022 09:00-0400 Body temperature 97.5 [degF] Tanvi Anika Other [employer] Other 07-21-2022 09:00-0400 Body weight 84.37 kg Tanvi Anika Other [employer] Other 07-21-2022 09:00-0400 Respiratory rate 18 /min Tanvi Anika Other [employer] Other 07-21-2022 09:00-0400 SaO2% (BldA) [Mass fraction] 95 % Tanvi Anika Other [employer] Other 04-26-2022 10:15-0400 Body height 167.64 cm Brittany Mast Other [employer] Other 04-26-2022 10:15-0400 Body mass index (BMI) [Ratio] 30.68 kg/m2 Brittany Mast Other [employer] Other 04-26-2022 10:15-0400 Body temperature 97.3 [degF] Brittany Mast Other [employer] Other 04-26-2022 10:15-0400 Body weight 86.23 kg Brittany Mast Other [employer] Other 04-26-2022 10:15-0400 Diastolic blood pressure 72 mm[Hg] Brittany Mast Other [employer] Other 04-26-2022 10:15-0400 Respiratory rate 18 /min Brittany Mast Other [employer] Other 04-26-2022 10:15-0400 SaO2% (BldA) [Mass fraction] 98 % Brittany Mast Other [employer] Other 04-26-2022 10:15-0400 Systolic blood pressure 132 mm[Hg] Brittany Mast Other [employer] Other 12-27-2021 15:30-0500 Body height 167.64 cm Celia Maurilio Other [employer] Other 12-27-2021 15:30-0500 Body mass index (BMI) [Ratio] 31.47 kg/m2 Celia Thorpe Other [employer] Other 12-27-2021 15:30-0500 Body temperature 98.8 [degF] Celia Thorpe Other [employer] Other 12-27-2021 15:30-0500 Body weight 88.45 kg Celia Thorpe Other [employer] Other 12-27-2021 15:30-0500 Diastolic blood pressure 88 mm[Hg] Celia Thorpe Other [employer] Other 12-27-2021 15:30-0500 Respiratory rate 18 /min Celia Thorpe Other [employer] Other 12-27-2021 15:30-0500 SaO2% (BldA) [Mass fraction] 96 % Celia Thorpe Other [employer] Other 12-27-2021 15:30-0500 Systolic blood pressure 145 mm[Hg] Celia Thorpe Other [employer] Other 12-17-2021 16:30-0500 Body height 167.64 cm Brittany Mast Other [employer] Other 12-17-2021 16:30-0500 Body mass index (BMI) [Ratio] 30.66 kg/m2 Brittany Mast Other [employer] Other 12-17-2021 16:30-0500 Body temperature 97.8 [degF] Brittany Mast Other [employer] Other 12-17-2021 16:30-0500 Body weight 86.18 kg Brittany Mast Other [employer] Other 12-17-2021 16:30-0500 Diastolic blood pressure 70 mm[Hg] Brittany Mast Other [employer] Other 12-17-2021 16:30-0500 Respiratory rate 18 /min Brittany Mast Other [employer] Other 12-17-2021 16:30-0500 SaO2% (BldA) [Mass fraction] 98 % Brittany Mast Other [employer] Other 12-17-2021 16:30-0500 Systolic blood pressure 122 mm[Hg] Brittany Mast Other [employer] Other 07-16-2021 16:45-0400 Body height 167.64 cm Brittany Mast Other [employer] Other 07-16-2021 16:45-0400 Body mass index (BMI) [Ratio] 32.28 kg/m2 Brittany Mast Other [employer] Other 07-16-2021 16:45-0400 Body weight 90.72 kg Brittany Mast Other [employer] Other 07-16-2021 16:45-0400 Diastolic blood pressure 78 mm[Hg] Brittany Mast Other [employer] Other 07-16-2021 16:45-0400 Respiratory rate 18 /min Brittany Mast Other [employer] Other 07-16-2021 16:45-0400 SaO2% (BldA) [Mass fraction] 98 % Brittany Mast Other [employer] Other 07-16-2021 16:45-0400 Systolic blood pressure 125 mm[Hg] Brittany Swenson Other [employer] Other 12-31-2020 16:20-0500 Body height 167.64 cm Tanvi Kimmond Other [employer] Other 12-31-2020 16:20-0500 Body mass index (BMI) [Ratio] 32.25 kg/m2 Tanvi Kimmond Other [employer] Other 12-31-2020 16:20-0500 Body temperature 98.2 [degF] Tanvi Kimmond Other [employer] Other 12-31-2020 16:20-0500 Body weight 90.63 kg Tanvi Anika Other [employer] Other 12-31-2020 16:20-0500 Diastolic blood pressure 79 mm[Hg] Tanvi Anika Other [employer] Other 12-31-2020 16:20-0500 Respiratory rate 18 /min Tanvi Anika Other [employer] Other 12-31-2020 16:20-0500 SaO2% (BldA) [Mass fraction] 99 % Tanvi Anika Other [employer] Other 12-31-2020 16:20-0500 Systolic blood pressure 144 mm[Hg] Tanvi Anika Other [employer] Other Encounters Encounter Date Encounter Type Care Provider Facility Start: 06-19-2024 End: 06-19-2024 [facility] Work Phone: Start: 06-19-2024 End: 06-19-2024 Patient encounter procedure [facility] Physician [facility] [place] Work Phone: Start: 06-12-2024 End: 06-12-2024 Patient encounter procedure [facility] Physician [facility] [place] Work Phone: Start: 06-11-2024 End: 06-11-2024 ambulatory [facility] Work Phone: Start: 06-11-2024 End: 06-11-2024 Patient encounter procedure [facility] Physician [facility] [place] Work Phone: Start: 06-07-2024 End: 06-07-2024 ambulatory [facility] Work Phone: Start: 06-07-2024 End: 06-07-2024 Patient encounter procedure [facility] Physician [facility] Work Phone: Start: 05-02-2024 End: 05-02-2024 ambulatory [facility] Start: 04-30-2024 ambulatory ANTHONY STILL Facili ty:[facility] Start: 03-23-2024 End: 03-23-2024 ambulatory BRITTANY E MAST Facility:[facility] Start: 03-23-2024 End: 03-23-2024 Patient encounter procedure ANTHONY STILL [facility] Start: 03-20-2024 End: 03-20-2024 ambulatory PHYSICIAN NO [facility] Work Phone: Start: 03-20-2024 End: 03-20-2024 Patient encounter procedure PHYSICIAN NO [facility] Physician [facility] [place] Work Phone: Start: 03-13-2024 End: 03-13-2024 Emergency department patient visit DESTINEE PADILLA [facility] Start: 03-09-2024 ambulatory ANTHONY STILL Facility :[facility] [place] Start: 03-06-2024 End: 03-06-2024 ambulatory Brittany Mast [facility] Work Phone: Start: 03-06-2024 End: 03-06-2024 Departed Referred Brittany Mast DO Work Phone: [facility] [place] Work Phone: Start: 03-06-2024 End: 03-06-2024 Patient encounter procedure Brittany Mast DO Work Phone: [facility] [place] Work Phone: Start: 02-10-2024 End: 02-10-2024 Patient encounter procedure Brittany Mast DO Work Phone: [facility] [place] Work Phone: Start: 12-20-2023 Non-patient / Non-visit Brittany M ast DO Work Phone: [facility] [place] Work Phone: Start: 12-12-2023 End: 12-12-2023 Patient encounter status Destinee Doran DO Work Phone: [facility] Start: 12-12-2023 End: 12-12-2023 Periodic preventive med est patient 40-64yrs Destinee Doran DO Work Phone: [facility] Comment on above: Encounter for gyneco logical examination without abnormal finding; Encounter for Papanicolaou smear of vagina; Breast cancer screening by mammogram Start: 12-12-2023 End: 12-12-2023 ambulatory DESTINEE DORAN Not Available Start: 01-18-2023 End: 01-18-2023 ambulatory Brittany Mast Other [employer] Other Start: 01-18-2023 Patient encounter procedure Brittany Mast [facility] [place] Start: 01-10-2023 End: 01-10-2023 ambulatory Brittany Mast Other [employer] Other Start: 01-10-2023 Office outpatient vi sit 15 minutes Brittany Mast [facility] [place] Start: 12-07-2022 End: 12-07-2022 ambulatory Brittany Mast Other [employer] Other Start: 12-07-2022 Office outpatient vi sit 15 minutes Brittany Mast [facility] [place] Start: 07-21-2022 End: 07-21-2022 ambulatory Tanvi Anika Other [employer] Other Start: 07-21-2022 Office outpatient vi sit 15 minutes Tanvi Anika [facility] Start: 04-26-2022 End: 04-26-2022 ambulatory Brittany Mast Other [employer] Other Start: 04-26-2022 Office outpatient vi sit 25 minutes Brittany Mast [facility] [place] Start: 12-27-2021 End: 12-27-2021 ambulatory Celia Maurilio Other [employer] Other Start: 12-27-2021 Office outpatient vi sit 15 minutes Celia Maurilio [facility] Start: 12-17-2021 End: 12-17-2021 ambulatory Brittany Mast Other [employer] Other Start: 12-17-2021 Office outpatient vi sit 15 minutes Brittany Mast [facility] [place] Start: 09-07-2021 End: 09-08-[address] NONE LISTED REQUEST Facility: Start: 09-03-2021 End: 09-03-2021 ambulatory Brittany Mast Other [employer] Other Start: 09-03-2021 Telephone encounter Brittany Mast [facility] [place] Start: 08-11-2021 End: 08-11-[address] MARTELL MCGEE Facility:[facility] Start: 07-16-2021 End: 07-16-2021 ambulatory Brittany Mast Other [employer] Other Start: 07-16-2021 Office outpatient vi sit 25 minutes Brittany Mast [facility] [place] Start: 12-31-2020 End: 12-31-2020 ambulatory Tanvi Donaldson Other [employer] Other Start: 12-31-2020 Office outpatient vi sit 25 minutes Tanvierasto Donaldson [facility] Urgent Care Se Procedures Date Procedure Procedure Detail Performing Clinician Start: 06-07-2024 Quick Strep (POC) Start: 03-06-2024 Urine culture PHYSICIAN NO FAMILY Start: 01-05-2023 Mammography Destinee Doran DO Work Phone: Start: 12-08-2022 Microscopic observation [Identifier] in Cervix by Cyto stain Destinee Doran DO Work Phone: Start: 12-07-2022 End: 12-12-2023 H/O: hysterectomy Status post hysterectomy Destinee Doran DO Work Phone: Bilateral tubal ligation RINA STILL Colonoscopy ANTHONY STILL Partial hysterectomy DAVIN STILL Plan of Treatment Date Care Activity Detail Author Start: 12-08-2025 Screening for malignant neoplasm of cervix [facility] Start: 12-12-2024 End: 12-12-2024 Patient encounter procedure 12/12/2024 2:00 PM EST Office Visit [facility] [address] [place] [address] Destinee Doran, DO [address] [place] [address] [facility] Start: 03-06-2024 Urine culture [facility] Start: 03-06-2024 Bacteria identified in Urine by Culture Urine Culture [facility] Start: 01-06-2024 Screening for malignant neoplasm of breast Mammogram [facility] Start: 01-02-2024 End: 02-10-2025 DBT Breast - bilateral screening Bilateral screening mammogram with tomosynthesis Imaging Routine Breast cancer screening by mammogram Expected: 01/02/2024, Expires: 02/10/2025 [facility] Comment on above: Expected: 01/02/2024 , Expires: 02/10/2025 Start: 10-09-2023 Influenza vaccination Influenza Vacc ine (#1) [facility] Start: 2011 Screening for malignant neoplasm of cervix HPV/Cotest [facility] IGP,rfxAptima HPV all,16/18,45 IGP,rfxAptima HPV all,16/18,45 Pathology and Cytology Routine Encounter for Papanicolaou smear of vagina Ordered: 12/12/2023 [facility] Work Phone: Comment on above: Ordered: 12/12/2023 Immunizations Immunization Date Immunization Notes Care Provider [facility] 12-07-2022 influenza, injectable, quadrivalent, preservative free Brittany Mast Other [employer] Other 12-01-2022 COVID-19 Vaccine Moderna - Documentation Purposes Only Brittany Mast Other [employer] Other 12-27-2021 tetanus toxoid, reduced diphtheria toxoid, and acellular pertussis vaccine, adsorbed Celia Thorpe Other [employer] Other 12-17-2021 influenza, injectable, quadrivalent, preservative free Brittany Mast Other [employer] Other 12-17-2021 influenza virus vaccine, unspecified formulation Destinee Doran DO Work Phone: [facility] 08-25-2021 SARS-CoV-2 (COVID-19) mRNA-1273 vaccine ANTHONYJOHN STILL [facility] 01-06-2021 SARS-CoV-2 (COVID-19) mRNA-1273 vaccine ANTHONY CHEKO [facility] 03-10-2020 SARS-CoV-2 (COVID-19) mRNA-1273 vaccine ANTHONY CHEKO [facility] 02-11-2020 SARS-CoV-2 (COVID-19) mRNA-1273 vaccine ANTHONY CHEKO [facility] 12-14-2019 influenza virus vaccine, unspecified formulation ANTHONY STILL [facility] 12-14-2019 influenza, injectable, quadrivalent, preservative free [employer] Phone: [facility] [employer] 12-07-2019 influenza, seasonal, injectable Tanvi Donaldson Other [employer] Other 12-03-2008 influenza virus vaccine, H1N1, live ANTHONYJOHN HERBERTRY [facility] 12-03-2008 novel [id number], live virus for nasal administration [employer] Phone: [facility] [employer] NEGATED: Highlighted row has not occurred! 0 influenza, injectable, quadrivalent, contains preservative Patient Objection Tanvi Donaldson Other [employer] Other Payers Date Payer Category Payer Self-pay 2022 Private Health Insurance [employer] [id number] 1981 Unknown [id number] 1981 Unknown [id number] 1981 Unknown [id number] 1981 Unknown [id number] 1981 Unknown [id number] 1981 Unknown [id number] 1981 Unknown [id number] 1959 Unknown [id number] Private Health Insurance [facility] [id number] Unknown [id number] Worker's Compensation [phone] Social History Date Type Detail Facility Unknown if ever smoked [facility] [employer] Other Start: 12-12-2023 Sex Assigned At N [facility] [employer] Other Start: 12-08-2022 [facility] History of tobacco use Cigarette Smoker [facility] Start: 12-08-2022 Tobacco use and exposure Smokeless tobacco non-user [facility] Start: 12-12-2023 Alcoholic beverage intake Current drinker of alcohol (finding) [facility] Start: 12-12-2023 History of Social function [facility] How often to you hav e a drink containing alcohol? Monthly or less [facility] How many standard drinks containing alcohol do you have on a typical day? 1 or 2 [facility] How often do you hav e 6 or more drinks on 1 occasion? Never [facility] Start: 12-07-2022 Alcohol Comment Caffeine intak e: 2-3 cups per day [facility] Start: 1980 Sex assigned at Not on file [facility] Start: 11-29-2017 End: 11-29-2017 Tobacco smoking status NHIS Smoker (finding) [facility] Start: 03-07-2024 Sex Patient sex un known (finding) [facility] Start: 1980 Sex Assigned At Female F [facility] Start: 03-20-2024 End: 06-19-2024 Sex Female (finding) [facility] Start: 03-23-2024 Tobacco smoking status Light t obacco smoker (finding) [facility] Tobacco smoking status Never [facility] Functional Status Date Assessment Result Facility 03-23-2024 Functional Status N/A [facility] Clinical Notes 12-31-2020 to 06-07-2024 Note Date & Type Note Facility 06-07-2024 Evaluation note Diagnosis Onset Date Resolution Acute bacterial pharyngitis acute June 07, 2024 11:21am Sinusitis acute June 07, 2024 11:21am Ingrown toenail of both feet acute June 11, 2024 3: 39pm Onychomycosis acute June 11 3:39pm Ingrown toenail of both feet acute June 12, 2024 2: 08pm [facility] Work Phone: [phone] 608-868403-26-2025 NoteXR SPINE CERVICAL 3 VWS OR LESS Procedure: Cervical spine radiographs performed Number of views:3 History:Trauma neck pain Comparison:None Findings: There is no fracture, malalignment, prevertebral soft-tissue swelling, or destructive lesion. There is mild disc space narrowing at C5-6. Impression: No acute findings. Finalized by Cliff Morrison MD on 05/02/2024 3:09 [facility] 05-02-2024 NoteXR SPINE THORACIC 3 VWS Procedure: Thoracic spine radiographs performed Number of views:3 History:Trauma back pain Comparison:None Findings: There is no fracture, malalignment, or destructive lesion. Vertebral body height and discspace height are well maintained. Impression: 1. No acute findings. Finalized by Cliff Morrison MD on 05/02/2024 3:09 [facility] 03-23-2024 Hospital Discharge instructions Patient Education 03/23/2024 11:27:42 Kidney Stones, Yrxh-le-Ixim Kidney Stones Kidney stones are rock-like masses that form inside of the kidneys. Kidneys are organs that make pee (urine). A kidney stone may move into other parts of the urinary tract, including: The tubes that connect the kidneys to the bladder (ureters). The bladder. The tube that carries urine out of the body (urethra). Kidney stones can cause very bad pain and can block the flow of pee. The stone usually leaves your body through your pee. A doctor may need to take out the stone. What are the causes? Kidney stones may be caused by: Too much calcium in the body. This may be caused by too much parathyroid hormone in the blood. Uric acid crystals in the bladder. The body makes uric acid when you eat certain foods. Narrowing of one or both of the ureters. A kidney blockage that you were born with. Past surgery on the kidney or the ureters. What increases the risk? You are more likely to develop this condition if: You have had a kidney stone in the past. Other people in your family have had kidney stones. You do not drink enough water. You eat a diet that is high in protein, salt (sodium), or sugar. You are very overweight (obese). What are the signs or symptoms? Symptoms of a kidney stone may include: Pain in the side of the belly, right below the ribs. Pain usually spreads to the groin. Needing to pee often or right away. Pain when peeing. Blood in your pee. Feeling like you may vomit (nauseous). Vomiting. Fever and chills. How is this treated? Treatment depends on the size, location, and makeup of the kidney stones. The stones will often pass out of the body when you pee. You may need to: Drink more fluid to help pass the stone. ?In some cases, you may be given fluids through an IV tube at the hospital. Take medicine for pain. Change your diet to help keep kidney stones from coming back. Sometimes, you may need: A procedure to break up kidney stones using a beam of light (laser) or shock waves. Surgery to remove the kidney stones. Follow these instructions at home: Medicines Take ivtp-nta-mivjjvb and prescription medicines only as told by your doctor. Ask your doctor if the medicine prescribed to you requires you to avoid driving or using machinery. Eating and drinking Drink enough fluid to keep your pee pale yellow. ?You may be told to drink at least 8 10 glasses of water each day. This will help you pass the stone. If told by your doctor, change your diet. You may be told to: ?Limit how much salt you eat. ?Eat more fruits and vegetables. ?Limit how much meat, poultry, fish, and eggs you eat. Follow instructions from your doctor about what you may eat and drink. General instructions Collect pee samples as told by your doctor. You may need to collect a pee sample: ?24 hours after a stone comes out. ?8 12 weeks after a stone comes out, and every 6 12 months after that. Strain your pee every time you pee. Use the strainer that your doctor recommends. Do not throw out the stone. Keep it so that it can be tested by your doctor. Keep all follow-up visits. You may need X-rays and ultrasounds to make sure the stone has come out. How is this prevented? To prevent another kidney stone: Drink enough fluid to keep your pee pale yellow. This is the best way to prevent kidney stones. Eat healthy foods. Avoid certain foods as told by your doctor. You may be told to eat less protein. Stay at a healthy weight. Where to find more information National Kidney Foundation (NKF): kidney.org U[employer] Care [facility] (UCF): urologyhealth.org Contact a doctor if: You have pain that gets worse or does not get better with medicine. Get help right away if: You have a fever or chills. You get very bad pain. You get new pain in your belly. You faint. You cannot pee. This information is not intended to replace advice given to you by your health care provider. Make sure you discuss any questions you have with your health care provider. Document Revised: 09/17/2022 Document Reviewed: 09/17/2022 [employer] Patient Education 2023 [employer]. Follow Up Care 03/19/2024 14:55:45 With:CHEKO RIVAS, ANTHONY Zaragoza, URL Address: [address] [place] [address] When:Within 1 Month(s) [facility] 02-14-2025 NotePatient Education Urology Kidney Stones Kidney stones are rock-like masses that form inside of the kidneys. Kidneys are organs that make pee (urine). A kidney stone may move into other parts of the urinary tract, including: ??? The tubes that connect the kidneys to the bladder (ureters). ??? The bladder. ??? The tube that carries urine out of the body (urethra). Kidney stones can cause very bad pain and can block the flow of pee. The stone usually leaves your body through your pee. A doctor may need to take out the stone. What are the causes? Kidney stones may be caused by: ??? Too much calcium in the body. This may be caused by too much parathyroid hormone in the blood. ??? Uric acid crystals in the bladder. The body makes uric acid when you eat certain foods. ??? Narrowing of one or both of the ureters. ??? A kidney blockage that you were born with. ??? Past surgery on the kidney or the ureters. What increases the risk? You are more likely to develop this condition if: ??? You have had a kidney stone in the past. ??? Other people in your family have had kidney stones. ??? You do not drink enough water. ??? You eat a diet that is high in protein, salt (sodium), or sugar. ??? You are very overweight (obese). What are the signs or symptoms? Symptoms of a kidney stone may include: ??? Pain in the side of the belly, right below the ribs. Pain usually spreads to the groin. ??? Needing to pee often or right away. ??? Pain when peeing. ??? Blood in your pee. ??? Feeling like you may vomit (nauseous). ??? Vomiting. ??? Fever and chills. How is this treated? Treatment depends on the size, location, and makeup of the kidney stones. The stones will often pass out of the body when you pee. You may need to: ??? Drink more fluid to help pass the stone. ? In some cases, you may be given fluids through an IV tube at the hospital. ??? Take medicine for pain. ??? Change your diet to help keep kidney stones from coming back. Sometimes, you may need: ??? A procedure to break up kidney stones using a beam of light (laser) or shock waves. ??? Surgery to remove the kidney stones. Follow these instructions at home: Medicines ??? Take eifq-iuf-arhruxy and prescription medicines only as told by your doctor. ??? Ask your doctor if the medicine prescribed to you requires you to avoid driving or using machinery. Eating and drinking ??? Drink enough fluid to keep your pee pale yellow. ? You may be told to drink at least 8?10 glasses of water each day. This will help you pass the stone. ??? If told by your doctor, change your diet. You may be told to: ? Limit how much salt you eat. ? Eat more fruits and vegetables. ? Limit how much meat, poultry, fish, and eggs you eat. ??? Follow instructions from your doctor about what you may eat and drink. General instructions ??? Collect pee samples as told by your doctor. You may need to collect a pee sample: ? 24 hours after a stone comes out. ? 8?12 weeks after a stone comes out, and every 6?12 months after that. ??? Strain your pee every time you pee. Use the strainer that your doctor recommends. ??? Do not throw out the stone. Keep it so that it can be tested by your doctor. ??? Keep all follow-up visits. You may need X-rays and ultrasounds to make sure the stone has come out. How is this prevented? To prevent another kidney stone: ??? Drink enough fluid to keep your pee pale yellow. This is the best way to prevent kidney stones. ??? Eat healthy foods. ??? Avoid certain foods as told by your doctor. You may be told to eat less protein. ??? Stay at a healthy weight. Where to find more information ??? National Kidney Foundation (NKF): kidney.org ??? [employer] (UCF): urologyhealth.org Contact a doctor if: ??? You have pain that gets worse or does not get better with medicine. Get help right away if: ??? You have a fever or chills. ??? You get very bad pain. ??? You get new pain in your belly. ??? You faint. ??? You cannot pee. This information is not intended to replace advice given to you by your health care provider. Make sure you discuss any questions you have with your health care provider. Document Revised: 09/17/2022 Document Reviewed: 09/17/2022 Elsevier Patient Education ? 2023 [employer] 03-20-2024 Evaluation note* Diagnosis Onset Date Resolution Status Admit Date Gross hematuria acute March 20, 2024 2:54pm Kidney stones acute March 202024 2:54pm [facility] Work Phone: 1(552) 533-125702-11-2025 Evaluation note* Diagnosis Onset Date Resolution Status Admit Date Gross hematuria acute March 20, 2024 2:54pm Kidney stones acute March 202024 2:54pm Acute bacterial pharyngitis acute June 07, 2024 11:21am Sinusitis acute June 07, 2024 11:21am [facility] Work Phone: 1(674) 460-809501-03-2025 Evaluation note* Diagnosis Onset Date Resolution Status Admit Date Anxiety with depression acute J anuary 2024 11:00am Overweight (BMI 25.0-29.9) acute February 10, 2024 11:00am Right hip pain acute February 11:00am Dysuria acute March 06, 2024 4:37pm Gross hematuria acute February 082024 4:37pm [facility] Work Phone: 1(698) 789-973901-03-2025 Evaluation note* Diagnosis Onset Date Resolution Status Admit Date Anxiety with depression acute J anuary 2024 11:00am Overweight (BMI 25.0-29.9) acute February 10, 2024 11:00am Right hip pain acute February 11:00am Dysuria acute March 06, 2024 4:37pm Gross hematuria acute February 082024 4:37pm Gross hematuria acute March 20, 2024 2:54pm Kidney stones acute March 202024 2:54pm [facility] Work Phone: 1(481) 158-127711-04-2024 History of Present illness Narrative* Rosalee Rubalcava MA - 12/12/2023 2:00 PM EST Images from the original note were not included. Destinee Doran, DO Obstetrics and Gynecology Zohaib Childers 1980 12/12/23 [id number] Yearly Wellness Exam Chief Complaint Patient presents with Gynecologic Exam LMP: TLH 2010 HRT: None Last pap 12-08-22 neg. Last mammogram 12-31-22 [facility]. Denies breast, urinary, or bowel concerns. Menopause Stopped Estradiol, because she didn't think it was helping. States since weather is not as warm, hot flushes more mild and tolerable. Visit Vitals BP 116/76 Ht 5' 6 Wt 176 lb BMI 28.41 kg/m OB Status Hysterectomy Smoking Status Every Day BSA 1.93 m OB History Para Term AB Living 4 2 2 1 2 SAB IAB Ectopic Multiple Live Births 1 2 # Outcome Date GA Lbr Demetrio/2nd Weight Sex Type Anes PTL Lv 4 Term 3 Term Vag-Spont WAQAS 2 SAB 1 Vag-Spont WAQAS Obstetric Comments Heaviest weighed 7 lbs 13 oz Current Outpatient Medications Medication Sig Dispense Refill ketorolac (Toradol) 10 MG tablet Take 1 tablet by mouth 3 (three) times a day as needed meloxicam (Mobic) 15 MG tablet 1 tablet Daily Multiple Vitamin (MULTIVITAMIN PO) 1 tablet Ascorbic Acid (Vitamin C) 500 MG capsule as directed Orally busPIRone (Buspar) 15 MG tablet CALCIUM PO Take 500 mg by mouth in the morning. cholecalciferol (Vitamin D-3) 25 MCG (1000 UT) tablet Take 1,000 Units by mouth in the morning. DULoxetine (Cymbalta) [address] capsule Take 60 mg by mouth in the morning. ferrous gluconate (Fergon) 324 (38 Fe) MG tablet Take 324 mg by mouth in the morning. Take with meals. Wegovy 1 MG/0.5ML solution auto-injector INJECT 1MG (0.5ML) SUBCUTANEOUSLY ONCE EVERY WEEK No current facility-administered medications for this visit. Allergies Allergen Reactions Jeferson Other Reaction(s): Unknown Latex Other Reaction(s): Unknown Sulfa Antibiotics Past Surgical History: Procedure Laterality Date COLONOSCOPY D&C FIRST TRIMESTER / TX INCOMPLETE / MISSED / SEPTIC / INDUCED 2004 EGD 2014 HYSTERECTOMY 08/06/2010 TLH TUBAL LIGATION Bilateral 2006 post Past Medical History: Diagnosis Date Anemia Anxiety COVID 04/2019 Depression ([facility]) Dysmenorrhea Enlarged lymph node in neck Irritable bowel syndrome 2012 Menometrorrhagia 2011 Nosebleed Obesity (BMI 30-39.9) Stroke ([facility]) ROS Const: Denies appetite change, fever, chills. Allergy: Denies medication reaction. Ocular: Denies visual acuity change. ENT: Denies hearing change. Endoc: Denies weight loss. Resp: Denies dyspnoea, wheezing. Cardiac: Denies angina, palpitations. GI: Denies nausea, vomiting. Haem: Denies bleeding. : Denies incontinence. MSK: Denies arthralgias, joint oedema. Derm: Denies rash, hair loss. Neuro: Denies ataxia, tremor. Also see HPI for elements of ROS documented therein and for details of positive findings, which shall supersede the foregoing. EXAM GENERAL EXAMINATION alert oriented well developed, well nourished. HEAD: normocephalic atraumatic. EYES: sclera anicteric. EARS: no obvious hearing deficit. NECK/THYROID: neck supple no cervical lymphadenopathy no thyromegaly. LYMPH NODES: no axillary, supraclavicular or inguinal adenopathy. SKIN: warm and dry. HEART: regular rate and rhythm. LUNGS: clear to auscultation bilaterally. CHEST:axillary nodes grossly normal. BREASTS:no masses palpable bilaterally, normal nipples bilaterally - everted - fatty replaced - dense - well supported- axilla negative. ABDOMEN: soft, nontender, nondistended, no masses palpable. BACK: no costovertebral angle tenderness, no obvious scoliosis/kyphosis. 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 EXTREMITIES no edema. NEUROLOGIC: alert and oriented. PSYCH: cooperative with exam. ICD-10-CM 1. Encounter for gynecological examination without abnormal finding Z01.419 Pelvic and breast exam completed. Findings of today's exam discussed with the patient. Continue MSBE. Ca/Vit D recommendations reviewed with the patient. The patient is to contact the office with anychanges to her gynecological condition or any changes with breast or bleeding. The patient is to return in 1 year or as needed 2. Encounter for Papanicolaou smear of vagina Z12.72 IGP,rfxAptima HPV all,16/18,45 Thinprep collected. Will notify patient if results are abnormal. 3. Breast cancer screening by mammogram Z12.31 Bilateral screening mammogram with tomosynthesis Screening mammogram ordered. Patient to call and schedule. She voiced stopped Estradiol for a few months. She felt was still having hot flashes, educated on triggers. She voiced livable, now that summer is over. Denies vaginal dryness. Entered by Rosalee Rubalcava MA acting as scribe for Dr. Destinee Doran. Signature Rosalee Rubalcava MA Date 12/12/23 . Time 1:47 PM . The documentation recorded by the scribe accurately reflects the service(s) I personally performed and the decisions I made. Signature Isaac Doran D.O. Date 12/12/23 Time 5:00PM. documented in this encounterKindred [id number] Evaluation note* Encounter Date Diagnosis Assessment Notes Treatment Notes Treatment Clinical Notes Jan, Ingrown toenail (ICD-10 - L60.0) The area has healed well. Recheck as needed [facility] Other 12-04-2023 Evaluation note* Encounter Date Diagnosis [...] onychomycosis, we will readdress this at follow-up. [facility] Other 10-31-2023 Evaluation note* Encounter Date Diagnosis [...] be happy to refill this for her [facility] Other 06-14-2023 Evaluation note* Encounter Date Diagnosis [...] days. You may return to work tomorrow [facility] Other 03-20-2023 Evaluation note* Encounter Date Diagnosis [...] adenopathy. Check ultrasound, further treatment pending results [facility] Other 11-20-2022 Evaluation note* Encounter Date Diagnosis Assessment Notes Treatment Notes Treatment Clinical Notes Dec, Puncture wound of right foot, initial encounter (ICD-10 - S91.331A) Updated vaccine in office today. . FOllow up wiht PCP if symptoms such as moderate swelling, redness, drainage occure. [facility] Other 11-10-2022 Evaluation note* Encounter Date Diagnosis [...] Dec, Flu vaccine need (ICD-10 - Z23) [facility] Other 06-09-2022 Evaluation note* Encounter Date Diagnosis [...] and observe response. Recheck in a month [facility] Other 11-24-2021 Evaluation note* Encounter Date Diagnosis [...] N39.0) Dec, Hematuria, unspecified (ICD-10 - R31.9) [facility] Other Evaluation + Plan note Future Appointments Appointment Date:04/30/2024 03:00:00 PM Scheduled Provider:ANTHONY STILL PA-C Location:[facility] Appointment Type:URO Office Visit [facility] evaluation noteNo InformationNort [facility] Other Evaluation note* Diagnosis Encounter for gynecological examination without abnormal finding Encounter for Papanicolaou smear of vagina Breast cancer screening by mammogram documented [facility] this [facility] - Reported* Type Description Date Medical History Headache Medical History anxiety Surgical History partial hysterectomy 2011 Surgical History tubal ligation 2006 Surgical History colonoscopy Surgical History COLONOSCOPY 2014 Hospitalization History childbirth [facility] Other Hospital course Narrative No data available for this section [facility] progress note No data available for this section [facility] Summary Purpose Family History Relationship Condition Age at Onset Recorded Date/T liat father Unknown grandparent Unknown Advance Directives Advance Directive Response Recorded Date/ Time Advance Directives No October 9:39am Advance Directive Response Recorded Date/ Time Advance Directives No October 10:39am Chief Complaint and Reason for Visit Chief Complaint Admit Date Amb Documentation December 20, 2023 8:33am 3 month f/u February 10, 2024 11 :00am possible UTI/blood in Urine February 4:37pm Gross hematuria March 06, 2024 5 :08pm Reason for Visit Admit Date Anxiety with depression February 09 11:00am Overweight (BMI 25.0-29.9) February 10, 2024 11:00am Right hip pain February 10, 2024 11 :00am Dysuria March 06, 2024 4 :37pm Gross hematuria March 06, 2024 4 :37pm Chief Complaint Admit Date 3 month f/u February 10, 2024 11 :00am possible UTI/blood in Urine February 4:37pm R31.0 March 06, 2024 5 :08pm Reason for Visit Admit Date Anxiety with depression February 09 11:00am Overweight (BMI 25.0-29.9) February 10, 2024 11:00am Right hip pain February 10, 2024 11 :00am Dysuria March 06, 2024 4 :37pm Gross hematuria March 06, 2024 4 :37pm Gross hematuria March 20, 2024 2:54pm Kidney stones March 20, 2024 2:54pm Chief Complaint Admit Date sinus pressure, congestion June 07, 2024 11:21am Reason for Visit Admit Date Gross hematuria March 20, 2024 2:54pm Kidney stones March 20, 2024 2:54pm Chief Complaint Admit Date sinus pressure, congestion June 07, 2024 11:21am ingrown toenail June 11, 2024 3:39pm Reason for Visit Admit Date Gross hematuria March 20, 2024 2:54pm Kidney stones March 20, 2024 2:54pm Acute bacterial pharyngitis June 07 11:21am Sinusitis June 07, 2024 11:21a m Chief Complaint Admit Date sinus pressure, congestion June 07, 2024 11:21am ingrown toenail June 11, 2024 3:39pm removal of toenails June 12, 2024 2:08pm 1 week follow up June 19, 2024 4:23p m Reason for Visit Admit Date Acute bacterial pharyngitis June 07 11:21am Sinusitis June 07, 2024 11:21a m Ingrown toenail of both feet June 11 3:39pm Onychomycosis June 11, 2024 3:39pm Ingrown toenail of both feet June 12 2:08pm Additional Source Comments REASON FOR VISIT (unrecogniz ed section and content) Reason Comments Gynecologic Exam LMP: TLH 2010 HRT: N one Last pap 12-08-22 neg.Last mammogram 12-31-22 [facility]. Denies breast, urinary, or bowel concerns. Menopause Stopped Estradiol, b ecause she didn't think it was helping. States since weather is not as warm, hot flushes more mild and tolerable. INFORMATION SOURCE (unrecogn ized section and content) DATE CREATED AUTHOR 09/11/2021 [facility] pital DATE CREATED AUTHOR AUTHOR'S ORGANIZ ATION 12/13/2023 [facility] EPIC DATE CREATED AUTHOR AUTHOR'S ORGANIZ ATION 03/08/2024 [facility] DATE CREATED AUTHOR AUTHOR'S ORGANIZ ATION 03/18/2024 [facility] DATE CREATED AUTHOR AUTHOR'S ORGANIZ ATION 03/24/2024 [facility] DATE CREATED AUTHOR AUTHOR'S ORGANIZ ATION 05/03/2024 [facility] Care Teams (unrecognized sec tion and content) Cake Former Relationship Specialty Start Date End Date Brittany Swenson MD [address] [facility] [place] [place] [id number] PCP - General 12/08/22 Team Status: Active Member Role Status Dates Brittany Mast , DO Primary Care Provider Active Star t: December 20, 2023 [facility] Attending Provider Active Start: December 20, 2023 Team Status: Inactive Member Role Status Dates Brittany Mast , DO Primary Care Provide r, Attending Provider Active Start: February 10, 2024 End: February 10, 2024 Team Status: Inactive Member Role Status Dates Brittany Mast , DO Primary Care Provide r, Attending Provider Active Start: March 06, 2024 End: March 06, 2024 Team Status: Inactive Member Role Status Dates Brittany Mast , DO Attending Provider Active Start: March 06, 2024 End: March 06, 2024 Team Status: Active Member Role Status Dates Brittany Mast , DO Primary Care Provider Active Team Status: Inactive Member Role Status Dates Brittany Mast , DO Attending Provider Active Start: March 06, 2024 End: March 06, 2024 PHYSICIAN NO FAMILY Primary Care Provider Active Start: March 06, 2024 End: March 06, 2024 Team Status: Inactive Member Role Status Dates Brittany Mast , DO Primary Care Provide r, Attending Provider Active Start: March 20, 2024 End: March 20, 2024 Team Status: Inactive Member Role Status Dates Brittany Mast , DO Primary Care Provider Active Star t: June 07, 2024 End: June 07, 2024 Elayne Joe APRN Attending Provider Active S tart: June 07, 2024 End: June 07, 2024 Team Status: Inactive Member Role Status Dates Brittany Mast , DO Primary Care Provide r, Attending Provider Active Start: June 11, 2024 End: June 11, 2024 Team Status: Inactive Member Role Status Dates Brittany Mast , DO Primary Care Provide r, Attending Provider Active Start: June 12, 2024 End: June 12, 2024 Team Status: Inactive Member Role Status Dates Brittany Mast , DO Primary Care Provide r, Attending Provider Active Start: June 19, 2024 End: June 19, 2024 Goals (unrecognized section and content) Goals may be documented in a n alternate section FOR RECORDS PERTAINING TO PATIENTS WHO ARE [...] BE BASED ON THE PRIMARY CLINICAL RECORDS. [facility] [employer] [facility]. provides no warranty or guarantee of the accuracy or completeness of information in this document.
--- OUTSIDE RECORDS SUMMARY | 2024-10-23 07:44 | XMS_ITS | Clinical Summary ---
Author Organization [facility] Address [address] [place] [address] Care Team Providers Care Marketing Technologist Name Role Phone Marques Swenson MD Primary Care Provider [phone] Allergies Active Allergy Reactions Criticality Noted Date Comments Addis Other 12/07/2022 Other Reaction(s): Unknown Latex Other 12/07/2022 Other Reaction(s): Unknown Sulfa (Sulfonamide Antibiotics) Other 05/23/2013 Social History Tobacco Use Types Packs/Day Years Used Date Smoking Tobacco: Every Day Cigarettes Smokeless Tobacco: Never Tobacco Cessation:Ready to Q uit: Not Asked; Counseling Given: Not Answered Alcohol Use Standard Drinks/Week Comments Yes 0 (1 standard drink = 0.6 oz pur e alcohol) SOME Comments No Sex and Gender Information Value Date Recorded Sex Assigned at Female 03/13/2024 8:23 AM EST Legal Sex Female 11:08 PM EDT Gender Identity Female 03/13/2024 8:23 AM EST Sexual Orientation Choose not to disclose 2024 8:23 AM EST Last Filed Vital Signs Vital Sign Reading Time Taken Comments Blood Pressure 128/74 03/13/2024 9:46 AM EST Pulse 79 03/13/2024 9:46 AM EST Temperature 36.5 C (97.7 F) 03/13/2024 8:02 AM EST Respiratory Rate 14 03/13/2024 9:46 AM EST Oxygen Saturation 100% 03/13/2024 9:46 AM EST Inhaled Oxygen Concentration - - Weight 78 kg (172 lb) 03/13/2024 8:11 AM EST Height 167.6 cm (5' 6 ) 03/13/2024 8:11 AM EST Body Mass Index 27.76 03/13/2024 8:11 AM EST Plan of Treatment Health Maintenance Due Date Last Done Comments Depression Screening 1993 Hepatitis B Vaccines (1 of 3 - 19+ 3-dose series) 2000 Pneumococcal Vaccine: Pediatrics (0 to 5 Years) and At-Risk Patients (6 to 64 Years) (1 of 2 - PCV) 2000 Varicella Vaccines (1 of 2 - 13+ 2-dose series) 12/31/2008 HPV/Cotest 2011 Mammogram 2021 COVID-19 Vaccine (6 - 2024- season) 2024 12/01/2022, 08/25/2021, 01/06/2021, Additional history exists Influenza Vaccine (#1) 2024 , 12/14/2019, 12/07/2019, Additional history exists Cervical Cancer Screening 12/08/2025 Pap Smear 12/08/2025 12/08/2022 Zoster Vaccines (1 of 2) 2031 Adult Tetanus 12/28/2031 12/27/2021 HIB Vaccines Aged Out No longer eligi ble based on patient's age to complete this topic HPV Vaccines Aged Out No longer eligi ble based on patient's age to complete this topic IPV Vaccines Aged Out No longer eligi ble based on patient's age to complete this topic Meningococcal B Vaccine Aged Out No l onger eligible based on patient's age to complete this topic Meningococcal Vaccine Aged Out No henry karin eligible based on patient's age to complete this topic Rotavirus Vaccines Aged Out No longer eligible based on patient's age to complete this topic Insurance [employer] Care Teams Marketing Technologist Relationship Specialty Start Date End Date Marques Swenson MD [address] [place] [address] PCP - General Family Medicine 03/13/24
--- OUTSIDE RECORDS SUMMARY | 2024-10-23 07:44 | XMS_ITS | Encounter Summary ---
Author Organization [facility] Address [address] [place] [address] Care Team Providers Care Delivery Route Driver Name Role Phone Maruqes Swenson DO Primary Care Provider [phone] Encounter Details Date Type Department Care Team ([facility] Contact Info) Description 12/15/2022 Orders Only [facility] [address] [place] [address] Aidan Bradford, DO [address] [place] [address] Social History Tobacco Use Types Packs/Day Years [...] Upcoming Encounters Date Type Department Care Team ([facility] Contact Info) Description 12/12/2024 2:00 PM EST Office Visit RUEL ADAMS [address] [place] [address] Aidan Bradford, [address] [place] [address] documented as of this encounter Procedures Procedure Name Priority Date/Time Associated Diagnosis Comments PAP SMEAR Routine 12/08/2022 2:05 PM EDT documented in this encounter Results * Pap Smear (12/08/2022 2:05 PM EDT) Swab Cervical swab / Unknown Aidan Bradford DO LAB CYTOLOGY ORDERABLES Sherlyn l Result documented in this encounter Visit Diagnoses Not on filedocumented in this encounter Care Teams Delivery Route Driver Relationship Specialty Start Date End Date Marques Swenson DO PCP - General 12/08/22 documented as of this encounter
[2024-10-23] MEDS: FAMOTIDINE/PF 20 MG/2 ML VIAL IV (07:52)
[2024-10-23] MEDS: KETOROLAC TROMETHAMINE 30 MG/ML VIAL IVP (07:52)
--- NOTE | 2024-10-23 07:54 | ED.GENADUL1 ---
HPI HPI - General Adult General Chief complaint: Abdominal Pain Stated complaint: ABDOMINAL/BACK PAIN Time Seen by Provider: 10/23/24 07:41 Source: patient Mode of arrival: walk-in Limitations: no limitations History of Present Illness HPI narrative: The patient is a 44-year-old female with no significant known past medical history Is coming to the ER after she woke up at 3:40 AM with a epigastric pain radiating to her back. Pain is 10 out of 10 according to the patient associated with some nausea no vomiting. The patient had no similar pain before although she said that few days ago she had similar pain that resolved by itself The patient denies any difficulty breathing she denies any coughing. Pain is in the epigastric area and also she feels in the right upper abdomen No changes in bowel movement the patient have no history of cough or difficulty breathing the patient is a smoker of cigarettes half a pack a day No history of drinking alcohol her last meal was last night and she did not have any complain then She might have some chills over the last night Related Data Home Medications ?Medication ?Instructions ?Recorded ?Confirmed buspirone 15 mg tablet 15 mg PO BID 10/23/24 10/23/24 duloxetine 60 mg capsule,delayed 60 mg PO DAILY 10/23/24 10/23/24 release Allergies Allergy/AdvReac Type Severity Reaction Status Date / Time latex Allergy Mild Rash Verified 10/23/24 07:32 Opioid HPI Opioid Management Most Recent Opioid Data: Last Pain Scale 6 Today, 12:18 Last ED Pain Assessment Today, 08:00 Last MAR Pain Assessment Today, 07:52 Review of Systems ROS Status of ROS 10 or more systems reviewed and unremarkable except as noted in history and below PFSH PFS Social History Little interest or pleasure in doing things: not at all Feeling down, depressed, or hopeless: not at all Exam Narrative Exam Narrative: Nurses notes and vital signs reviewed and patient is not hypoxic. General: Well-appearing and in no apparent distress. Skin: Warm, dry, no pallor noted. No rash. Head: Normocephalic, atraumatic. Neck: Supple, non-tender. Cardiovascular: Regular Rate and Rhythm without murmur, gallop or rub. Respiratory: No accessory muscle use or respiratory distress. Lungs are clear to auscultation, no wheezing, rales or rhonchi Chest Wall: no tenderness Musculoskeletal: normal ROM, no calf or popliteal tenderness, no lower extremity edema/swelling GI: Abdomen is soft, epigastric tenderness that is significant in addition to right upper quadrant tenderness . Neurological: A&O x4. No cranial nerve dysfunction observed. Constitutional Vital Signs, click to edit/add: Last Vital Signs Temp 97.8 F 10/23/24 07:33 Pulse 69 10/23/24 16:17 Resp 16 10/23/24 16:17 BP 112/64 10/23/24 16:17 Pulse Ox 98 10/23/24 16:17 O2 Del Method Room Air 10/23/24 07:33 Course Vital Signs Vital signs: Vital Signs Temperature 97.8 F 10/23/24 07:33 Pulse Rate 72 10/23/24 07:33 Respiratory Rate 18 10/23/24 07:33 Blood Pressure 134/78 10/23/24 07:33 Pulse Oximetry 99 10/23/24 07:33 Oxygen Delivery Method Room Air 10/23/24 07:33 Temperature 97.8 F 10/23/24 07:33 Pulse Rate 69 10/23/24 16:17 Respiratory Rate 16 10/23/24 16:17 Blood Pressure 112/64 10/23/24 16:17 Pulse Oximetry 98 10/23/24 16:17 Oxygen Delivery Method Room Air 10/23/24 07:33 Medical Decision Making [facility] Narrative Medical decision making narrative: The patient EKG in the ER showing sinus rhythm with a heart rate of [address] elevation or depression The patient presentation is highly suspicious to be having acute cholecystitis or gastritis The patient CBC shows leukocytosis-white blood cell was 15--blood culture was obtained the patient was started on Cipro and Flagyl to cover possible acute cholecystitis Chemistry showing elevated AST and ALT with no elevation in the bilirubin or lipase Negative test The patient troponin was negative chest x-ray showed no acute pathology CT of the abdomen pelvis as well as ultrasound showed a picture of possible common bile duct obstruction in addition to acute cholecystitis I initially discussed the case with Dr. Levy and he mentioned that the patient need to be transferred to a facility that have ERCP as [facility] does not have a ERCP The patient care was discussed with [facility] and the patient was accepted by Dr.Doreen after discussing the case with nurse practitioner Nickie Bills The patient meanwhile we will continue hydration in addition to 75 cc/hr of NS The patient also was accepted by in [facility] Lab Data Labs: Lab Results 10/23/24 10/23/24 Range/Units 07:45 10:35 WBC 15.4 H (4.0-11.0) 10^3/uL RBC 3.59 L (4.20-5.40) 10^6/uL Hgb 12.2 (12.0-16.0) g/dL Hct 36.4 (36.0-48.0) % MCV 101.4 H (81.0-99.0) fL MCH 34.0 (26.7-34.0) pg MCHC 33.5 (29.9-35.2) g/dL RDW 15.7 H (11.0-15.0) % Plt Count 379 (150-450) 10^3/uL MPV 9.1 L (9.5-13.5) fL Neut % (Auto) 75.7 H (43.0-75.0) % Lymph % (Auto) 14.4 L (20.5-60.0) % Blanco % (Auto) 7.6 (1.7-12.0) % Eos % (Auto) 1.6 (0.9-7.0) % Baso % (Auto) 0.3 (0.2-2.0) % Neut # (Auto) 11.6 H (1.4-6.5) 10^3/uL Lymph # (Auto) 2.2 (1.2-3.8) 10^3/uL Blanco # (Auto) 1.2 H (0.3-0.8) 10^3/uL Eos # (Auto) 0.2 (0.0-0.7) 10^3/uL Baso # (Auto) 0.0 (0.0-0.1) 10^3/uL Abs Immat Gran (auto) 0.06 H (0.00-0.03) 10^3/uL Imm/Tot Granulo (auto) 0.4 (0.0-0.5) % PT 10.3 (9.0-11.6) sec INR 0.97 Sodium 140 (136-145) mmol/L Potassium 3.7 (3.5-5.1) mmol/L Chloride 104 (98-107) mmol/L Carbon Dioxide 27.1 (21.0-32.0) mmol/L Anion Gap 12.6 BUN 6.0 L (7.0-18.0) mg/dL Creatinine 0.69 (0.55-1.02) mg/dL Est GFR ( Amer) >60 (>=60 mL/min/1.73m^2) Est GFR (Non-Af Amer) >60 (>=60 mL/min/1.73m^2) BUN/Creatinine Ratio 8.7 Glucose 117 H (74-106) mg/dL Calcium 8.9 (8.5-10.1) mg/dL Total Bilirubin 0.8 (0.2-1.0) mg/dL AST 441 H (15-37) U/L ALT 196 H (14-59) U/L Alkaline Phosphatase 161 H (46-116) U/L Troponin I High Sens <4.0 L (4.0-51.3) pg/mL Total Protein 7.7 (6.4-8.2) g/dL Albumin 3.4 (3.4-5.0) g/dL Globulin 4.3 g/dL Albumin/Globulin Ratio 0.8 Lipase 25.0 (16.0-77.0) U/L Serum HCG, Qual Negative (NEGATIVE) Ethanol Quant <3 mg/dL Discharge Plan Discharge Chief Complaint: Abdominal Pain Clinical Impression: Common bile duct (CBD) obstruction, Acute cholecystitis Patient Disposition: [facility]
[2024-10-23 07:56] LABS: Hematocrit 36.4 % (36.0-48.0); Hemoglobin 12.2 g/dL (12.0-16.0); Immature Granulocytes Abs Auto 0.06 10^3/uL (0.00-0.03); Immature Granulocytes Pct Auto 0.4 % (0.0-0.5); Lymphocytes Absolute Auto 2.2 10^3/uL (1.2-3.8); Mean Corpuscular HGB Conc 33.5 g/dL (29.9-35.2); Mean Corpuscular Hemoglobin 34.0 pg (26.7-34.0); Mean Corpuscular Volume 101.4 fL (81.0-99.0); Platelet Count 379 10^3/uL (150-450); Red Blood Count 3.59 10^6/uL (4.20-5.40); White Blood Count 15.4 10^3/uL (4.0-11.0)
[2024-10-23 08:10] LABS: INR 0.97; Prothrombin Time 10.3 sec (9.0-11.6)
--- NOTE | 2024-10-23 08:15 | CT_ITS ---
The [address] [address] Patient Name: ZOHAIB BOYER MRN: [id number] date: 1980 Sex: F Assigned Patient Location: ER Current Patient Location: ER Accession/Order Number: [id number] Exam Date: 10/23/2024 08:24 Report Date: 10/23/2024 09:46 At the request of: HEIDE DALTON MD Procedure: CT abdomen pelvis w con CT ABDOMEN AND PELVIS WITH INTRAVENOUS CONTRAST: CLINICAL HISTORY: RUQ oain COMPARISON: X-ray 03/20/2024 TECHNIQUE: Spiral images were obtained through the abdomen and pelvis following the administration of intravenous contrast. This CT exam was performed using one or more following dose reduction techniques: Automated exposure control, adjustment of the mA and/or kV according to patient size, or use of iterative reconstruction technique. FINDINGS: Distended gallbladder measuring 4.5 cm. There is minimal intrahepatic and common bile duct dilatation with the common bile duct measuring 5.5 mm on the coronal images. No findings of pancreatic duct dilatation on CT. Otherwise liver, spleen, adrenals, kidneys, pancreas or. Retained stool throughout the colon. No bowel obstruction. Minimal antral thickening of the stomach possibly under distention. Minimal scattered colonic diverticulosis. Bladder unremarkable. No adnexal mass. No free air or free fluid. Lung bases are clear. CT/CT abdomen pelvis w con IMPRESSION: Biliary ductal dilatation with abnormally distended gallbladder. Findings may relate to cholecystitis versus less likely choledocholithiasis. No definite filling defect identified within the common bile duct on this examination. Impression dictated by: Jason Salazar M.D. 10/23/2024 9:46 AM Dictation Location: [place] [address] Electronically authenticated by: [id number] Y Date: 10/23/2024 09:46
--- NOTE | 2024-10-23 08:15 | US_ITS ---
The [address] [address] Patient Name: ZOHAIB BOYER MRN: [id number] date: 1980 Sex: F Assigned Patient Location: ER Current Patient Location: ER Accession/Order Number: [id number] Exam Date: 10/23/2024 09:00 Report Date: 10/23/2024 09:52 At the request of: HEIDE DALTON MD Procedure: US right upper quadrant Right upper quadrant ultrasound INDICATION: Right upper quadrant pain COMPARISON: None FINDINGS: Liver unremarkable size and echogenicity. Unremarkable portal venous flow. Distended gallbladder with multiple layering shadowing foci. A small amount of fluid around the gallbladder wall. Wall is unremarkable in thickness measuring 2 mm. Common bile duct 6.6 mm. Cerebrum sinus negative. Pancreas unremarkable. Right kidney unremarkable in size on 0.7 x 5.1 x 4.5 cm without hydronephrosis. US/US right upper quadrant Impression: Abnormally distended gallbladder with cholelithiasis. Minimal edema within the gallbladder wall noted. Consider HIDA scan Impression dictated by: Jason Salazar M.D. 10/23/2024 9:52 AM Dictation Location: [place] [address] Electronically authenticated by: [id number] Y Date: 10/23/2024 09:52
[2024-10-23 08:16] LABS: Alanine Aminotransferase 196 U/L (14-59); Albumin Globulin Ratio 0.8; Albumin Level 3.4 g/dL (3.4-5.0); Alkaline Phosphatase 161 U/L (46-116); Anion Gap 12.6; Aspartate Amino Transferase 441 U/L (15-37); Blood Urea Nitrogen 6.0 mg/dL (7.0-18.0); Calcium 8.9 mg/dL (8.5-10.1); Carbon Dioxide 27.1 mmol/L (21.0-32.0); Chloride 104 mmol/L (98-107); Estimated GFR (African America >60 (>=60 mL/min/1.73m^2); Estimated GFR (Non-African Ame >60 (>=60 mL/min/1.73m^2); Globulin 4.3 g/dL; Glucose 117 mg/dL (74-106); Lipase 25.0 U/L (16.0-77.0); Potassium 3.7 mmol/L (3.5-5.1); Sodium 140 mmol/L (136-145); Total Protein 7.7 g/dL (6.4-8.2)
[2024-10-23] MEDS: MORPHINE SULFATE 2 MG/ML SYRINGE IV (08:16)
[2024-10-23] MEDS: CIPROFLOXACIN IN 5 % DEXTROSE 400 MG/200 ML PREMIX 200 MG IV (10:50)
[2024-10-23] MEDS: METRONIDAZOLE/SODIUM CHLORIDE 500 MG/100 ML PREMIX 100 MG IV (11:32)
[2024-10-23] MEDS: MORPHINE SULFATE 4 MG/ML VIAL IV (12:18)
[2024-10-23] MEDS: 0.9 % SODIUM CHLORIDE 1,000 ML 75 ML IV (13:20)
--- NOTE | 2024-10-23 18:13 | PC.NURSE ---
i introduced myself to this patient and i informed her that still waiting [facility]
--- NOTE | 2024-10-23 18:43 | PC.NURSE ---
this patient informed she reba be going [facility] room A 717 and [facility] will be here at 07:45 PM
--- NOTE | 2024-10-23 20:01 | PC.NURSE ---
i called [facility] [phone] and i spoke with Sho CORNELL and i gave her this patient report. this patient left with [facility] squad this patient awake and alert sitting up on the cot. this patient voices no concerns, needs and shows no signs of distress
== END 2024-10-23 20:01 | disposition short-term general hospital (02) ==
PROVIDERS: Emergency Provider Emergency Medicine; PCP Family Medicine
DX: K81.0 Acute cholecystitis (principal); K83.1 Obstruction of bile duct; F17.210 Nicotine dependence, cigarettes, uncomplicated
CPT/HCPCS: 36415; 71045; 74177; 76705; 80053; 80320; 83690; 84484; 84703; 85025; 85610; 87040; 93005; 96365; 96367; 96375; 96376; 99285; J0744; J1836; J1885; J2270; J2405; J3490; Q9966

== ENCOUNTER 2024-12-28 13:23 | Outpatient (OUT) | payer OTHER, SELFPAY ==
--- NOTE | 2024-12-28 13:25 | MM_ITS ---
Patient Name: ZOHAIB BOYER MR#: [id number] : 1980 Exam Date: 12/28/2024 Ordering Doctor: DR DESTINEE DORAN RADIOLOGY REPORT PROCEDURE: MM TOMOSYNTHESIS SCREENING BI COMPARISON: MM TOMOSYNTHESIS SCREENING BI, 12/31/2022. MG MAMM SCREEN 3D HILDA CAD, 09/07/2021. INDICATIONS: Screening Calculator Name NCI Breast Cancer Risk Assessment Tool 5 Year Breast Cancer Risk 0.60% Lifetime Breast Cancer Risk 8.00% Personal Breast Cancer No Personal Ovarian Cancer No Treatments None Family Cancers Grandmother-maternal with colon cancer at age 70. LOCATION: [facility] BREAST COMPOSITION: The breasts are heterogeneously dense, which may obscure small masses. FINDINGS: RIGHT BREAST: No significant suspicious finding. Benign-appearing calcifications are present. LEFT BREAST: No significant suspicious finding. Benign-appearing calcifications are present. DIAGNOSTIC CATEGORY 2--BENIGN FINDING. NO CHANGE FROM COMPARISON. RECOMMENDATIONS: ROUTINE MAMMOGRAM AND CLINICAL EVALUATION IN 12 MONTHS. Dictated by: Basim Hernandez MD on 12/28/2024 at 15:52 Approved by: Basim Hernandez MD on 12/28/2024 at 15:58
--- OUTSIDE RECORDS SUMMARY | 2024-12-28 13:26 | XMS_ITS | Clinical Summary ---
Author Organization [facility] Address [address], [address] [place] [address] Care Team Providers Care Editor Continuity And Script Name Role Phone Unavailable Primary Care Provider Unavailabl e Allergies Active AllergyReactionsCriticalityNoted DateCommentsSulfa Dnckafbayhp26/16/2014 Medications MedicationSigDispense QuantityRefillsLast FilledStart DateEnd DateStatus FLUoxetine (PROZAC) 20 MG capsule Take 20 mg by mouth daily.Active docusate sodium (COLACE) 100 MG capsule Take 100 mg by mouth 2 times daily.Active ferrous gluconate (FERGON) 324 (38 FE) MG tablet Take 324 mg by mouth daily (with breakfast).Active Polyethylene Glycol 3350 (MIRALAX PO) Take by mouth.Active vitamin D (CHOLECALCIFEROL) 1000 UNIT TABS tablet Take 1,000 Units by mouth daily.Active oxybutynin (DITROPAN-XL) 10 MG CR tablet Take 10 mg by mouth daily.Active calcium carbonate (OSCAL) 500 MG TABS tablet Take 500 mg by mouth daily.Active Fexofenadine HCl (SUE PO) Take by mouth.Active naproxen (NAPROSYN) 500 MG tablet Take 500 mg by mouth 2 times daily (with meals).Active levalbuterol (XOPENEX) 1.25 MG/3ML nebulizer solution Take 1 ampule by nebulization every 4 hours as needed for Wheezing.Active traMADol (ULTRAM) 50 MG tablet Take 50 mg by mouth every 6 hours as needed for Pain.Active mometasone-formoterol (DULERA) 200-5 MCG/ACT inhaler Inhale 2 puffs into the lungs every 12 hours.Active albuterol (ACCUNEB) 0.63 MG/3ML nebulizer solution Take 1 ampule by nebulization every 6 hours as needed for Wheezing.Active Social History Tobacco UseTypesPacks/DayYears UsedDateSmoking Tobacco: Never Assessed CommentsUnknownSex and Gender InformationValueDate RecordedSex Assigned at Not on fileLegal BmxLmwcml54/10/2013 10:15 AM ESTGender IdentityNot on file Sexual OrientationNot on file Plan of Treatment Not on file
--- OUTSIDE RECORDS SUMMARY | 2024-12-28 13:26 | XMS_ITS | Clinical Summary ---
Author Organization Where Was it Filmed [facility] tem Address [id number] [address] [place] [address] Care Team Providers Care Rfid Strategist Name Role Phone Marques Swenson DO Primary Care Provider [phone] Allergies Active AllergyReactionsCriticalityNoted DateCommentsGingerAnaphylaxisHigh 10/24/20243251BfuzbVykyAnk11/17/2025 Medications MedicationSigDispense QuantityRefillsLast FilledStart DateEnd DateStatus DULoxetine (CYMBALTA) 60 mg capsule Take 1 capsule (60 mg total) by mouth in the morning.Active busPIRone (BUSPAR) 15 mg tablet Take 1 tablet (15 mg total) by mouth in the morning and at bedtime.Active acetaminophen (TYLENOL) 325 mg tablet Take 2 tablets (650 mg total) by mouth every 4 (four) hours as needed for pain or fever. 30 tablet 5Active folic acid (FOLVITE) 1 mg tablet Take 1 tablet (1 mg total) by mouth in the morning. 30 tablet 5Active cyanocobalamin 1000 MCG tablet Take 1 tablet (1,000 mcg total) by mouth in the morning. 30 tablet 5Active pantoprazole (PROTONIX) 40 mg EC tablet Indications:Duodenal ulcer,Anemia, unspecified typeTake 1 tablet (40 mg total) by mouth every morning before breakfast. 30 tablet 5Active Active Problems ProblemNoted DateDiagnosed DateCholecystitis, acute10/23/2024holedocholithiasis 10/23/2024 Encounters DateTypeDepartmentCare NgvbHxmxbnoiqjn12/20/2025 10:00 AM EDTOffice Visit [facility] [address] [place] [address] Donte Zaman MD Choledocholithiasis (Primary Dx)11/26/20241682Ekbelr90/26/2025Refill [facility] Department of [place] [id number] [facility] [address] [place] [address] Ashley Radford CMA Duodenal ulcer (Primary Dx); Anemia, unspecified type11/02/2024Results Follow-Up [facility] Department of [address] [address] Bib Lamar MD CBC auto cwoggjuwqalz55/25/6550Prusoo31/25/2025Telephone [facility] Department of [address] [address] Ashley Radford CMA 11/01/2024Orders Only [facility] Department of [address] [address] Ashley Radford CMA Anemia, unspecified type (Primary Dx)10/31/2024Results Follow-Up [facility] - Endoscopy [address] [place] [address] Bib Lamar MD Surgical Misgrnyva16/19/2025 10:35 AM EDTAnesthesia Event [facility] Surgery [address] [facility] [place] [address] Marco A Knight MD 10/26/2024 10:05 AM EDT - 10/26/2024 12:18 PM EDTSurgery [facility] Surgery [address] [facility] [place] [address] Donte Zaman MD LAPAROSCOPIC ANMFMFQHIIXJZAN13/19/6559Bjomzi55/18/2025 1:22 PM EDTAnesthesia Event [facility] Endoscopy [address] [place] [address] Mercedes Nathan MD 10/25/2024 1:01 PM EDT - 10/25/2024 2:16 PM EDTSurgery [facility] [address] [place] [address] Bib Lamar MD ENDOSCOPIC ULTRASOUND (UPPER) [96398 (CPT??)]10/25/20247678Lohxqk45/17/2025Travel 10/24/2024Orders Only [facility] [address] [place] [phone] External, Scanning Provider Pain (Primary Dx)10/24/2024Orders Only [facility] [address] [place] [phone] Transcribe, Orders Support User Pain (Primary Dx)10/23/2024 9:10 PM EDT - 10/26/2024 6:56 PM EDTHospital Encounter [facility] GEN 7 Acute [address] [place] [phone] Matt Dailey MD Das, Avijit, MD Choledocholithiasis (Primary Dx); Post-op pain Discharge Disposition: Home10/23/2024 9:05 AM EDTAncillary Procedure [facility] [address] [place] [phone] Pain10/23/2024 8:35 AM EDTAncillary Procedure [facility] [address] [place] [address] [phone] Pain10/23/2024 8:05 AM EDTAncillary Procedure [facility] [address] [place] [phone] Painfrom Last 3 Months Immunizations ImmunizationAdministration DatesNext QlgN6H8 Nasal12/03/2008Influenza, Im Trivalent Fpmvitabnwyd43/30/2020Influenza, Injectable, quadrivalent (PF) 12/17/2021,12/14/2019Tdap102/26/2021 Social History Tobacco UseTypesPacks/DayYears UsedDateSmoking Tobacco: Every DayCigarettes Smokeless Tobacco: Never Tobacco Cessation:Ready to Q uit: Not Asked; Counseling Given: Not Answered Alcohol UseStandard Drinks/WeekCommentsYes0 (1 standard drink = 0.6 oz pure alcohol)occasionalAHC UtilitiesAnswerDate RecordedIn the past 12 months has the [employer], gas, oil, or water [employer] threatened to shut off services in your home?No10/24/2024UDIT-CAnswerDate RecordedQ1: How often do you have a drink containing alcohol?Monthly or less10/24/2024Q2: How many drinks containing alcohol do you have on a typical day when you are drinking?1 or Q3: How often do you have six or more drinks on one occasion?Never10/24/2024Overall Financial Resource Strain (CARDIA)AnswerDate RecordedHow hard is it for you to pay for the very basics like food, housing, medical care, and heating?Not hard at all10/24/2024PHQ-2AnswerDate RecordedTotal Vncca878PRAPARE - TransportationAnswerDate RecordedIn the past 12 months, has lack of transportation kept you from medical appointments or from getting medications?No 10/24/2024In the past 12 months, has lack of transportation kept you from meetings, work, or from getting things needed for daily living?No10/24/2024 Housing InstabilityAnswerDate RecordedAre you worried or concerned that in the next two months you may not have stable housing that you own, rent or stay in as a part of a household?No10/24/2024hildcareAnswerDate RecordedChildcareUnknown 07/19/2018EmploymentAnswerDate DiwhwpswJwjjqndfeeYljhqmm08/12/2019Hunger ScreeningAnswerDate RecordedWithin the past 12 months we worried whether our food would run out before we got money to buy more.Never True11/26/2024Within the past 12 months the food we bought just didn't last and we didn't have money to get more.Never True11/26/2024Purpose - LifeAnswerDate RecordedPurpose and direction in pmqjVlwgozm62/11/2021CommentsNoSex and Gender Information ValueDate RecordedSex Assigned at BirthNot on fileLegal TbpYpepwj93/06/2015 12:02 PM EDTGender IdentityNot on fileSexual OrientationNot on file Last Filed Vital Signs Vital SignReadingTime TakenCommentsBlood Vqztxhvl654/7311/26/2024 9:42 AM EDT Nyxsy927811/26/2024 9:42 AM ZHVEbvdexzxvcp62.4 ??C (97.6 ??F)10/26/2024 2:09 PM EDTRespiratory Eyvi813910/26/2024 2:09 PM EDTOxygen Climgthegy96%10/26/2024 2:09 PM EDTInhaled Oxygen Concentration--Nyzubd28.6 kg (160 lb)11/26/2024 9:42 AM EDT Isogty982.6 cm (5' 6 )11/26/2024 9:42 AM EDTBody Mass Index25.8211/26/2024 9:42 AM EDT Plan of Treatment Health MaintenanceDue DateLast DoneCommentsTobacco Ymmcdhtwqu61/28/1982Adult BMI Follow Up Plan1999COVID-19 Vaccine ( season)2024 12/01/2022, 08/25/2021, 01/06/2021, Additional history existsInfluenza Vaccine /11/2021, 12/14/2019, 12/07/2019, Additional history existsTobacco Jxqctdwfx64/dult BMI Kqpjoutxl64Depression Eypnutmea53Pap Smear/TaP,Tdap and Td Vaccines (2 - Td or Tdap) Goals GoalPatient Goal TypeAssociated ProblemsRecent ProgressPatient-Stated?Author <enter goal here> Brandie Biggs, RN Note: Evaluation of progress towards goal: Patient plans for safe discharge home with spouse. Medical Devices Not on file Procedures Procedure NamePriorityDate/TimeAssociated DiagnosisCommentsCBC WITH AUTO QUAISPSKETYYCjeagja37/25/2025 4:09 PM EDT Anemia, unspecified type SURGICAL GCYQBINPQCkkpity55/19/2025 12:01 PM EDT AK AN ELECTIVE ENDOTRACHEAL NBNPFHZnfsdgr46/19/2025 11:47 AM EDT LAPAROSCOPIC CHEVGRURRZPMWSO39/19/2025 10:35 AM EDT ACUTE CHOLELITHIASIS JYADCVWFBZ56/19/2025 6:41 AM EDT COMPREHENSIVE METABOLIC XJXTPJcyycfr45/19/2025 6:41 AM EDT CBC WITH AUTO EIRVZZGWYQPLMPGX28/19/2025 6:41 AM EDT FL ERCP BILIARY FEYKLpuuynp30/18/2025 2:17 PM EDT ERCP10/25/2024 2:16 PM EDT SURGICAL UPLDRXPPZDvycwwm88/18/2025 1:52 PM EDT Choledocholithiasis AK AN ELECTIVE ENDOTRACHEAL GOQSZWKtqxmno21/18/2025 1:37 PM EDT ENDOSCOPIC ULTRASONOGRAPHY, GI UPPER10/25/2024 1:27 PM EDT AK ERCP W/SPHINCTEROTOMY/WFNEOLQJOCA91/18/2025 1:22 PM EDT Choledocholithiasis CHG GI ENDOSCOPIC UEXQOTGFRP42/18/2025 1:22 PM EDT Choledocholithiasis PROVATION WWJPGqeoaoq79/18/2025 12:07 PM EDT PROVATION QMUWstvgcy14/18/2025 12:07 PM EDT PROVATION UPPER RDXJbedvmn06/18/2025 12:07 PM EDT ENDOSCOPIC ULTRASOUND (UPPER)Duqlrsu7110/25/2024 11:31 AM EDT Choledocholithiasis LIPASEAdd-On10/25/2024 5:34 AM EDT COMPREHENSIVE METABOLIC HDBXTVthtyyu64/18/2025 5:34 AM EDT CBC WITH AUTO JYBFNSSRUCFDYenzpac05/18/2025 5:34 AM EDT MR MRCP WITH MRI ABD W WO IHBFECLZ88/18/2025 1:33 AM EDT NM HEPATOBILIARY SYS IMAGING W PHARMACOLOGIC YRKJKMkzbebm23/17/2025 1:26 PM EDT LIPASEAdd-On10/24/2024 5:28 AM EDT FOLATEAdd-On10/24/2024 5:28 AM EDT VITAMIN S47Xij-Fa31/17/2025 5:28 AM EDT FERRITINAdd-On10/24/2024 5:28 AM EDT IRON AND TIBCAdd-On10/24/2024 5:28 AM EDT LIVER PANELSTAT Add-on10/24/2024 5:28 AM EDT PROTIME & OPQLudpliw15/17/2025 5:28 AM EDT CBC (NO DIFF)Lhzlkxz1910/24/2024 5:28 AM EDT BASIC METABOLIC VBAURFkxuhzs82/17/2025 5:28 AM EDT , NZWMRUdwpigx53/17/2025 4:30 AM EDT LIVER PANELAdd-On10/23/2024 11:16 PM EDT CREATININE, ONLDYPYCE40/16/2025 11:16 PM EDT CBC (NO DIFF)Zpipdqk1910/23/2024 11:16 PM EDT BASIC METABOLIC AWOHIUoivnqx49/16/2025 11:16 PM EDT PULSE OXIMETRY, HRBZBlszzod86/16/2025 10:52 PM EDTUS ABDOMEN LMTDRoutine 10/23/2024 9:[address] ABDOMEN AND PELVIS W BBXPTvcyvvi77/16/2025 8:35 AM EDT Pain XR CHEST 1 JPKpdwvhu28/16/2025 8:05 AM EDT Pain from Last 3 Months Results * (ABNORMAL) CBC auto differential (11/01/2024 4:09 PM EDT) Only the most recent of3 resultswithin the time period is included. ComponentValueRef RangeTest MethodAnalysis TimePerformed AtPathologist Signature WBC11.04 - 11 x10E9/L11/01/2024 10:[address] [facility] RBC Count3.58(L)3.8 - 5.2 X10E12/L11/01/2024 10:[address] [facility] FEYFLJQDKRBiauzvwunz97.211.7 - 15.5 g/dL11/01/2024 10:[address] [facility] POARXLNYITWifwqtvnzj03.735 - 47 %11/01/2024 10:[address] [facility] KIJCWQPOVMNOJ45344 - 100 fL11/01/2024 10:[address] [facility] JSSOCBXVWMPMJ56.027 - 34 pg11/01/2024 10:[address] [facility] ZYEHWEPXTURSKM62.132 - 36 g/dL11/01/2024 10:[address] [facility] QDAUBLXXSQODZ33.0(H)11.5 - 15 %11/01/2024 10:[address] [facility]ORATORYPlatelet Hdfmf548499 - 450 X10E9/L11/01/2024 10:[address] [facility] LABORATORYMPV7.97 - 12 fL11/01/2024 10:06 PM [facility]ORYNeutrophils %59.9%11/01/2024 10:06 PM [facility]ORYLymphocytes %30.1%11/01/2024 10:06 PM [facility]ORYMonocytes %6.6%11/01/2024 10:[address] [facility]ORYEosinophils %3.0%11/01/2024 10:[address] [facility]ORYBasophils %0.4%11/01/2024 10:[address] [facility]ORYNeutrophils Absolute (A)6.61.5 - 6.6 10*3/uL 11/01/2024 10:[address] [facility]ORYLymphocytes Absolute 3.31.0 - 3.5 10*3/uL11/01/2024 10:[address] [facility] Monocytes Absolute0.70.0 - 0.9 10*3/uL11/01/2024 10:[address] [facility]ORYEosinophils Absolute0.30.0 - 0.4 10*3/uL11/01/2024 10:06 PM [facility]ORYBasophils Absolute0.00.0 - 0.2 10*3/uL 11/01/2024 10:[address] [facility]ORYDifferential Type AUTOMATED MCEADKGVMWYY91/25/2025 10:[address] [facility] Specimen (Source)Anatomical Location / LateralityCollection Method / Volume Collection TimeReceived TimeBloodVenous blood / UnknownVenipuncture / Unknown 11/01/2024 4:09 PM EDT11/01/2024 4:09 PM EDT Narrative Authorizing ProviderResult TypeResult StatusNasser Hajar MDLAB BLOOD ORDERABLES Final ResultPerforming OrganizationAddressCity/State/ZIP CodePhone Number [facility] [address] [place] [address], * Surgical Pathology (10/26/2024 12:01 PM EDT) Only the most recent of2 resultswithin the time period is included. ComponentValueRef RangeTest MethodAnalysis TimePerformed AtPathologist Signature Case ReportSurgical Pathology Report ? Case: [id number] ? Authorizing Provider: ??Donte Zaman MD ? Collected: ? 10/26/2024 1201 ? Ordering Location: ? [facility] ??Received: ?10/26/2024 1325 ? - Surgery ? Pathologist: ? Olinda Herman, DO ? Specimen: ?Gallbladder, GALLBLADDER ? 10/31/2024 3:[address] [facility]ATORYFinal Diagnosis Gallbladder, cholecystectomy: Mild subacute and chronic cholecystitis with cholelithiasis. Polypoid granulation wcvjrl2410/31/2024 3:[address] [facility] at 1513 EDTGross DescriptionReceived in formalin labeled CHILDERS, gallbladder , is an intact gallbladder (8.5 x 3.8 x 3.8) with a silva-purple and focally hemorrhagic serosal surface with scattered adhesions. The hepatic bed is silva-purple to nova- green. A pericystic lymph node is not identified. The cystic duct is partially occluded, with a diameter of 0.4 cm. The gallbladder lumen contains green-brown viscous bile and numerous yellow calculi ranging from < 0.1-0.5 cm in greatest dimension. The mucosa is green-brown and velvety with yellow striations and a 0.3 cm polypoid like adhesion. The wall measures up to 0.3 cm in thickness. Private Branch Exchange Service Advisor sections are submitted in a single cassette to include the shaved cysticduct, and transportation services representative sections of the gallbladder neck body and fundus. (1, , [id number] -1, m6.1) JL10/31/2024 3:[address] [facility]ORATORYEmbedded Vombzw4110/31/2024 3:[address] [facility] LABORATORYSpecimen (Source)Anatomical Location / LateralityCollection Method / VolumeCollection TimeReceived TimeTissueGallbladder structure / Unknown 10/26/2024 12:01 PM EDT10/26/2024 1:25 PM EDTComment:Pre-op diagnosis: ACUTE CHOLELITHIASIS Narrative Authorizing ProviderResult TypeResult StatusJoncoaustin Zaman MD PATHOLOGY/CYTOLOGY ORDERABLESFinal ResultPerforming OrganizationAddress City/State/ZIP CodePhone Number [facility] [address] [place] [address], * AK AN ELECTIVE ENDOTRACHEAL AIRWAY (10/26/2024 11:47 AM EDT) Narrative Milly Patterson APRN-VACUUM PAN TENDER - 10/26/2024 11:47 AM EDT DELVIN Marsh 10/26/2024 11:10 AM Airway Patient location during procedure: OR Urgency: Elective Date/Time: 10/26/2024 11:47 AM Airway not difficult IV In Situ: Peripheral General Information and Staff Service Provider: DELVIN Marsh Placed by: ??DELVIN Marsh Patient Identified, IV Checked, Risks and Benefits Discussed, Surgical Consent, Monitors and Equipment Checked, Pre-op Evaluation and Timeout Performed Fire Risk Assessment Score: 0 Consent for Emergent Airway (if performed for an anesthetic, see related documentation for consents) Risks and benefits: risks, benefits and alternatives were discussed Indications and Patient Condition Sedation level: Deep Preoxygenated: yesPatient position: Supine MILS maintained throughout Mask difficulty assessment: Vent By Mask Indications for airway management: Anesthesia Complications: No Complicating Factors: No Final Airway Details Final airway type: ETT Endotracheal airway: Cuffed and ETT - Single Lumen Techniques used for successful ETT Placement: Video Laryngoscopy and With Stylet Cormack-Lehane Classification: Grade I Endotracheal tube insertion site: Oral No Bite Block Placed Dentition Check Pre: See Pre-Evaluaton documentation Post Intubation Trauma? No Visibility: ??Cords Clear Blade: Other Blade size: #4 ETT size: 7.5 mm Measured from: Lips Secured at (cm): 23 Number of other approaches attempted: 0 Ventilation between attempts: BVM Number of attempts at approach: 1 Authorizing ProviderResult TypeResult StatusMuсергей Knight MD ANESTHESIA ORDERABLESEdited Result - Final * Lipase (10/26/2024 6:41 AM EDT) Only the most recent of3 resultswithin the time period is included. ComponentValueRef RangeTest MethodAnalysis TimePerformed AtPathologist Signature MEPNPI4587 - 82 U/L10/26/2024 7:[address] [facility] Specimen (Source)Anatomical Location / LateralityCollection Method / Volume Collection TimeReceived TimeBloodVenous blood / UnknownVenipuncture / Unknown 10/26/2024 6:41 AM EDT10/26/2024 7:05 AM EDT Narrative Authorizing ProviderResult TypeResult StatusElizabet Salinas MDLAB BLOOD ORDERABLESFinal ResultPerforming OrganizationAddressCity/State/ZIP CodePhone Number [facility] [address] [place] [address], * (ABNORMAL) Comprehensive metabolic panel (10/26/2024 6:41 AM EDT) Only the most recent of2 resultswithin the time period is included. ComponentValueRef RangeTest MethodAnalysis TimePerformed AtPathologist Signature [id number] - 146 mmol/L10/26/2024 7:[address] [facility] LABORATORYPOTASSIUM3.93.5 - 5.0 mmol/L10/26/2024 7:[address] [facility] KRNZXFMUUEAYIQQFZG51157 - 109 mmol/L10/26/2024 7:[address] [facility] LABORATORYCARBON WPLMZOH6443 - 32 mmol/L10/26/2024 7:[address] LABORATORYANION GAP75 - 15 mmol/L10/26/2024 7:[address] [facility]ORATORYBLOOD UREA QTRYVFEM43 - 23 mg/dL10/26/2024 7:[address] [facility]ORATORYCREATININE0.650.40 - 1.00 mg/dL10/26/2024 7:[address] [facility]ORATORYComment:METHOD TRACEABLE TO IDAK PUFCEUSJWJPOZII1050 - 99 mg/dL10/26/2024 7:[address] [facility] LABORATORYCALCIUM8.98.5 - 10.5 mg/dL10/26/2024 7:[address] [facility]ATORYTOTAL PROTEIN6.16.0 - 8.0 g/dL10/26/2024 7:[address] [facility] LABORATORYALBUMIN3.63.2 - 5.3 g/dL10/26/2024 7:[address] [facility]ORATORYALKALINE RSMSMAHZXTN42724 - 130 U/L10/26/2024 7:[address] [facility] PQFVFLWVDNOXA41<=41 U/L10/26/2024 7:48 AM EDT [facility] PKPYDECAPLAOW65(H)<=31 U/L10/26/2024 7:[address] [facility] LABORATORYBILIRUBIN,TOTAL0.70.3 - 1.2 mg/dL10/26/2024 7:[address] [facility]ORYEGFR Non-Race Dependent>90>=60 ml/min/1.73sq.m010/26/2024 7:[address]ORATORYComment: Reported eGFR is based on the CKD-EPI 2020 equation that does not use a race coefficient. Specimen (Source)Anatomical Location / LateralityCollection Method / Volume Collection TimeReceived TimeBloodVenous blood / UnknownVenipuncture / Unknown 10/26/2024 6:41 AM EDT10/26/2024 7:05 AM EDT Narrative Authorizing ProviderResult TypeResult StatusArmelle Jesus Salinas MDLAB BLOOD ORDERABLESFinal ResultPerforming OrganizationAddressCity/State/ZIP CodePhone Number [facility] [address] [place] [address], * Fluoroscopy ERCP biliary duct (10/25/2024 2:17 PM EDT)Anatomical Region LateralityModalityRadio FluoroscopySpecimen (Source)Anatomical Location / LateralityCollection Method / VolumeCollection TimeReceived Time10/25/2024 2:19 PM EDT Narrative 10/25/2024 2:20 PM EDT FL ERCP BILIARY DUCT INDICATION: Intraoperative imaging for localization of treatment planning. COMPARISON: None FINDINGS: Fluoro Time: 23 seconds Reference Air Kerma: 4.29 mGy Number of images: 5 Images of procedure in progress demonstrate localization for ERCP.. IMPRESSION: Intraoperative imaging for the purposes of treatment planning and localization. ??Refer to final operative report for complete details. Finalized by Rasheeda Uriostegui MD on 10/25/2024 2:20 PM Procedure Note Rasheeda Uriostegui MD - 10/25/2024 [place] ERCP BILIARY DUCT INDICATION: Intraoperative imaging for localization of treatment planning. COMPARISON: None FINDINGS: Fluoro Time: 23 seconds Reference Air Kerma: 4.29 mGy Number of images: 5 Images of procedure in progress demonstrate localization for ERCP.. IMPRESSION: Intraoperative imaging for the purposes of treatment planning andlocalization. Refer to final operative report for complete details. Finalized by Rasheeda Uriostegui MD on 10/25/2024 2:20 PM Authorizing ProviderResult TypeResult StatusBib Lamar MDIMG FLUOROSCOPY ORDERABLESFinal Result * ERCP (10/25/2024 2:16 PM EDT)Specimen (Source)Anatomical Location / Laterality Collection Method / VolumeCollection TimeReceived Time10/25/2024 2:16 PM EDT Narrative PM CARDIOVASCULAR - 10/25/2024 2:22 PM EDT [facility] Patient Name: Genesis Childers ?? Procedure Date: 10/25/2024 2:16 PM ? CSN: [id number] Date of : 1980 Admit Type: Inpatient Age: 44 Gender: Female Note Status: Finalized Attending MD: Bib Lamar MD, Procedure: ?ERCP Indications: ?Bile duct stone(s) Providers: ?Bib Lamar MD Referring MD: ? Requesting Provider: ? Medicines: ?General Anesthesia Complications: ?No immediate complications. Procedure: ?After obtaining informed consent, the scope was ?passed under direct vision. Throughout the ?procedure, the patient's blood pressure, pulse, ?and oxygen saturations were monitored ?continuously. The was introduced through the ?mouth, and advanced to the duodenum and used to ?inject contrast into the bile duct. The ERCP ?was accomplished without difficulty. The ?patient tolerated the procedure well. Findings: ? The major papilla was ulcerated. A 0.035 inch x 260 cm straight ? Dreamwire was passed into the biliary tree. The short-nosed traction ? sphincterotome was passed over the guidewire and the bile duct was then ? deeply cannulated. Contrast was injected. I personally interpreted the ? bile duct images. There was brisk flow of contrast through the ducts. ? Image quality was excellent. Contrast extended to the entire biliary ? tree. The main bile duct was moderately dilated and diffusely dilated, ? acquired. The largest diameter was 10 mm. A 7 mm biliary sphincterotomy ? was made with a braided traction (standard) sphincterotome using ERBE ? electrocautery. There was no post-sphincterotomy bleeding. The biliary ? tree was swept with a 12 mm balloon starting at the bifurcation. Sludge ? was swept from the duct. Estimated Blood Loss: ? Estimated blood loss was minimal. Impression: ? - The major papilla appeared to be ulcerated. ?- The entire main bile duct was moderately ?dilated, acquired. ?- A biliary sphincterotomy was performed. ?- The biliary tree was swept and sludge was ?found. Recommendation: ? - Discharge patient to home (ambulatory). ?- NPO for 4 hours. ?- Clear liquid diet - advance as tolerated to ?resume previous diet. ?- Await path results. ?- Use Protonix (pantoprazole) 40 mg PO daily. ?- Proceed with cholecystectomy as previously ?planned. Procedure Code(s): ?--- Professional --- ?56097, Endoscopic retrograde ?cholangiopancreatography (ERCP); with removal ?of calculi/debris from biliary/pancreatic ?duct(s) ?78979, Endoscopic retrograde ?cholangiopancreatography (ERCP); with ?sphincterotomy/papillotomy ?68532, Endoscopic catheterization of the ?biliary ductal system, radiological supervision ?and interpretation Diagnosis Code(s): ?--- Professional --- ?K83.8, Other specified diseases of biliary tract ?K80.50, Calculus of bile duct without ?cholangitis or cholecystitis without obstruction CPT copyright 2023 [employer]. All rights reserved. The codes documented in this report are preliminary and upon jewelry casting model maker apprentice review may be revised to meet current compliance requirements. MD Bib Klein MD 10/25/2024 2:22:25 PM This report has been signed electronically. Number of Addenda: 0 Note Initiated On: 10/25/2024 2:16 PM Procedure Note Bib Lamar MD - 10/25/2024 [facility] Patient Name: Genesis Childers Procedure Date: 10/25/2024 2:16 PM CSN: [id number] Date of : 1980 Admit Type: Inpatient Age: 44 Gender: Female Note Status: Finalized Attending MD: Bib Lamar MD, Procedure: ERCP Indications: Bile duct stone(s) Providers: Bib Lamar MD Referring MD: Requesting Provider: Medicines: General Anesthesia Complications: No immediate complications. Procedure: After obtaining informed consent, the scopewas passed under direct vision. Throughout the procedure, the patient's blood pressure,pulse, and oxygen saturations were monitored continuously. The was introduced through the mouth, and advanced to the duodenum and usedto inject contrast into the bile duct. The ERCP was accomplished without difficulty. The patient tolerated the procedure well. Findings: The major papilla was ulcerated. A 0.035 inch x 260 cm straight Dreamwire was passed into the biliary tree. The short-nosed traction sphincterotome was passed over the guidewire and the bile duct wasthen deeply cannulated. Contrast was injected. I personally interpretedthe bile duct images. There was brisk flow of contrast through the ducts. Image quality was excellent. Contrast extended to the entire biliary tree. The main bile duct was moderately dilated and diffuselydilated, acquired. The largest diameter was 10 mm. A 7 mm biliarysphincterotomy was made with a braided traction (standard) sphincterotome using ERBE electrocautery. There was no post-sphincterotomy bleeding. Thebiliary tree was swept with a 12 mm balloon starting at the bifurcation.Sludge was swept from the duct. Estimated Blood Loss: Estimated blood loss was minimal. Impression: - The major papilla appeared to beulcerated. - The entire main bile duct was moderately dilated, acquired. - A biliary sphincterotomy was performed. - The biliary tree was swept and sludge was found. Recommendation: - Discharge patient to home (ambulatory). - NPO for 4 hours. - Clear liquid diet - advance as toleratedto resume previous diet. - Await path results. - Use Protonix (pantoprazole) 40 mg POdaily. - Proceed with cholecystectomy as previously planned. Procedure Code(s): --- Professional --- 84228, Endoscopic retrograde cholangiopancreatography (ERCP); withremoval of calculi/debris from biliary/pancreatic duct(s) 78422, Endoscopic retrograde cholangiopancreatography (ERCP); with sphincterotomy/papillotomy 88255, Endoscopic catheterization of the biliary ductal system, radiologicalsupervision and interpretation Diagnosis Code(s): --- Professional --- K83.8, Other specified diseases of biliarytract K80.50, Calculus of bile duct without cholangitis or cholecystitis withoutobstruction CPT copyright 2022 [employer]. All rights reserved. The codes documented in this report are preliminary and upon jewelry casting model maker apprentice reviewmay be revised to meet current compliance requirements. MD Bib Klein MD 10/25/2024 2:22:25 PM This report has been signed electronically. Number of Addenda: 0 Note Initiated On: 10/25/2024 2:16 PM Authorizing ProviderResult TypeResult StatusBib Lamar MDGI PROCEDURE ORDERABLESFinal ResultPerforming OrganizationAddressCity/State/ZIP CodePhone Number PM C[facility]IOVASCULAR * AK AN ELECTIVE ENDOTRACHEAL AIRWAY (10/25/2024 1:37 PM EDT) Narrative Milly Patterson APRN-CRNA - 10/25/2024 1:37 PM EDT DELVIN Marsh 10/25/2024 1:50 PM Airway Patient location during procedure: OR Urgency: Elective Date/Time: 10/25/2024 1:37 PM Airway not difficult IV In Situ: Peripheral General Information and Staff Service Provider: DELVIN Marsh Placed by: ??DELVIN Marsh Patient Identified, IV Checked, Risks and Benefits Discussed, Surgical Consent, Monitors and Equipment Checked, Pre-op Evaluation and Timeout Performed Fire Risk Assessment Score: 0 Consent for Emergent Airway (if performed for an anesthetic, see related documentation for consents) Risks and benefits: risks, benefits and alternatives were discussed Indications and Patient Condition Sedation level: Deep Preoxygenated: yesPatient position: Supine MILS maintained throughout Mask difficulty assessment: Vent By Mask Indications for airway management: Anesthesia Complications: No Complicating Factors: No Final Airway Details Final airway type: ETT Endotracheal airway: Cuffed and ETT - Single Lumen Techniques used for successful ETT Placement: Video Laryngoscopy and With Stylet Cormack-Lehane Classification: Grade I Endotracheal tube insertion site: Oral No Bite Block Placed Dentition Check Pre: See Pre-Evaluaton documentation Post Intubation Trauma? No Visibility: ??Cords Clear Blade: Other Blade size: #3 ETT size: 7.5 mm Measured from: Lips Secured at (cm): 22 Number of other approaches attempted: 0 Ventilation between attempts: BVM Number of attempts at approach: 1 Authorizing ProviderResult TypeResult StatusAdricorazon Nathan MDANESTHESIA ORDERABLESEdited Result - Final * Endoscopic Ultrasonography, GI Upper (10/25/2024 1:27 PM EDT)Specimen (Source) Anatomical Location / LateralityCollection Method / VolumeCollection Time Received Time10/25/2024 1:27 PM EDT Narrative PM CARDIOVASC[facility] - 10/25/2024 2:19 PM EDT [facility] Patient Name: Genesis Childers ?? Procedure Date: 10/25/2024 1:27 PM ? CSN: [id number] Date of : 1980 Admit Type: Inpatient Age: 44 Room: [place] [address] Gender: Female Note Status: Finalized Attending MD: Bib Lamar MD, Procedure: ?Upper EUS Indications: ?Suspected choledocholithiasis Providers: ?Bib Lamar MD Referring MD: ? Lynn Lomeli Requesting Provider: ? Medicines: ?General Anesthesia Complications: ?No immediate complications. Procedure: ?After obtaining informed consent, the endoscope ?was passed under direct vision. Throughout the ?procedure, the patient's blood pressure, pulse, ?and oxygen saturations were monitored ?continuously. The Endoscope was introduced ?through the mouth, and advanced to the second ?part of duodenum. The was introduced through ?the mouth, and advanced to the second part of ?duodenum. The upper EUS was accomplished ?without difficulty. The patient tolerated the ?procedure well. Findings: ? ENDOSCOPIC FINDING: : ? A few localized erosions without bleeding were found in the duodenal ? bulb. ? The first portion of the duodenum and second portion of the duodenum ? were normal. ? Diffuse mildly erythematous mucosa without bleeding was found in the ? entire examined stomach. Biopsies were taken with a cold forceps for ? histology. ? The examined esophagus was endoscopically normal. ? ENDOSONOGRAPHIC FINDING: : ? There was no sign of significant endosonographic abnormality in the ? entire pancreas. The pancreatic duct measured up to 2.5 mm in diameter ? in the head, 1.8 mm in the body. The pancreas was well visualized, the ? pancreatic duct was well visualized from ampulla to tail, the pancreatic ? duct was thin in caliber. ? Many stones were visualized endosonographically in the gallbladder body. ? They were hyperechoic. ? There was dilation in the main bile duct which measured up to 10 mm. ? Moderate hyperechoic material consistent with sludge was visualized ? endosonographically in the lower third of the main bile duct. ? Diffuse wall thickening was visualized endosonographically in the ? ampulla. The thickness of the abnormal layers. Erosions noted ? endoscopically. Estimated Blood Loss: ? Estimated blood loss was minimal. Impression: ? - Duodenal erosions without bleeding. ?- Normal first portion of the duodenum and ?second portion of the duodenum. ?- Erythematous mucosa in the stomach. Biopsied. ?- Normal esophagus. ?- There was no sign of significant pathology in ?the entire pancreas. ?- Many stones were visualized ?endosonographically in the gallbladder body. ?- There was dilation in the entire main bile ?duct which measured up to 10 mm. ?- Hyperechoic material consistent with sludge ?was visualized endosonographically in the lower ?third of the main bile duct. ?- Wall thickening was seen in the ampulla. Recommendation: ? - Await path results. ?- Proceed with ERCP. Procedure Code(s): ?--- Professional --- ?19113, Esophagogastroduodenoscopy, flexible, ?transoral; with endoscopic ultrasound ?examination limited to the esophagus, stomach ?or duodenum, and adjacent structures ?66341, Esophagogastroduodenoscopy, flexible, ?transoral; with biopsy, single or multiple Diagnosis Code(s): ?--- Professional --- ?K26.9, Duodenal ulcer, unspecified as acute or ?chronic, without hemorrhage or perforation ?K31.89, Other diseases of stomach and duodenum ?K80.20, Calculus of gallbladder without ?cholecystitis without obstruction ?K83.8, Other specified diseases of biliary tract CPT copyright 2022 [employer]. All rights reserved. The codes documented in this report are preliminary and upon jewelry casting model maker apprentice review may be revised to meet current compliance requirements. MD Bib Klein MD 10/25/2024 2:19:36 PM This report has been signed electronically. Number of Addenda: 0 Note Initiated On: 10/25/2024 1:27 PM Procedure Note Bib Lamar MD - 10/25/2024 [facility] Patient Name: Genesis Childers Procedure Date: 10/25/2024 1:27 PM CSN: [id number] Date of : 1980 Admit Type: Inpatient Age: 44 Room: [place] [address] Gender: Female Note Status: Finalized Attending MD: Bib Lamar MD, Procedure: Upper EUS Indications: Suspected choledocholithiasis Providers: Bib Lamar MD Referring MD: Lynn Lomeli Requesting Provider: Medicines: General Anesthesia Complications: No immediate complications. Procedure: After obtaining informed consent, theendoscope was passed under direct vision. Throughoutthe procedure, the patient's blood pressure,pulse, and oxygen saturations were monitored continuously. The Endoscope was introduced through the mouth, and advanced to thesecond part of duodenum. The was introduced through the mouth, and advanced to the second partof duodenum. The upper EUS was accomplished without difficulty. The patient toleratedthe procedure well. Findings: ENDOSCOPIC FINDING: : A few localized erosions without bleeding were found in the duodenal bulb. The first portion of the duodenum and second portion of the duodenum were normal. Diffuse mildly erythematous mucosa without bleeding was found in the entire examined stomach. Biopsies were taken with a cold forceps for histology. The examined esophagus was endoscopically normal. ENDOSONOGRAPHIC FINDING: : There was no sign of significant endosonographic abnormality in the entire pancreas. The pancreatic duct measured up to 2.5 mm indiameter in the head, 1.8 mm in the body. The pancreas was well visualized,the pancreatic duct was well visualized from ampulla to tail, thepancreatic duct was thin in caliber. Many stones were visualized endosonographically in the gallbladderbody. They were hyperechoic. There was dilation in the main bile duct which measured up to 10mm. Moderate hyperechoic material consistent with sludge was visualized endosonographically in the lower third of the main bile duct. Diffuse wall thickening was visualized endosonographically in the ampulla. The thickness of the abnormal layers. Erosions noted endoscopically. Estimated Blood Loss: Estimated blood loss was minimal. Impression: - Duodenal erosions without bleeding. - Normal first portion of the duodenum and second portion of the duodenum. - Erythematous mucosa in the stomach.Biopsied. - Normal esophagus. - There was no sign of significant pathologyin the entire pancreas. - Many stones were visualized endosonographically in the gallbladderbody. - There was dilation in the entire main bile duct which measured up to 10 mm. - Hyperechoic material consistent withsludge was visualized endosonographically in thelower third of the main bile duct. - Wall thickening was seen in the ampulla. Recommendation: - Await path results. - Proceed with ERCP. Procedure Code(s): --- Professional --- 42768, Esophagogastroduodenoscopy, flexible, transoral; with endoscopic ultrasound examination limited to the esophagus,stomach or duodenum, and adjacent structures 67549, Esophagogastroduodenoscopy, flexible, transoral; with biopsy, single or multiple Diagnosis Code(s): --- Professional --- K26.9, Duodenal ulcer, unspecified as acuteor chronic, without hemorrhage or perforation K31.89, Other diseases of stomach andduodenum K80.20, Calculus of gallbladder without cholecystitis without obstruction K83.8, Other specified diseases of biliarytract CPT copyright 2022 [employer]. All rights reserved. The codes documented in this report are preliminary and upon jewelry casting model maker apprentice reviewmay be revised to meet current compliance requirements. MD Bib Klein MD 10/25/2024 2:19:36 PM This report has been signed electronically. Number of Addenda: 0 Note Initiated On: 10/25/2024 1:27 PM Authorizing ProviderResult TypeResult StatusBib Lamar MDGI PROCEDURE ORDERABLESFinal ResultPerforming OrganizationAddressCity/State/ZIP CodePhone Number PM CARDIOVASCULAR * Upper EUS Report (10/25/2024 12:07 PM EDT)Specimen (Source)Anatomical Location / LateralityCollection Method / VolumeCollection TimeReceived Time Narrative SYSTEMGENERATED, DOCUMENTATION - 10/25/2024 12:07 PM EDT This order has been auto-finalized for image and report archival in PACs. *For full report details, please reach out to your physician. ??This image is visible to you in MyChart.* Authorizing ProviderResult TypeResult StatusNasser Hajar MDIMG OR IMG ORDERABLES Final Result * ERCP Report (10/25/2024 12:07 PM EDT)Specimen (Source)Anatomical Location / LateralityCollection Method / VolumeCollection TimeReceived Time Narrative SYSTEMGENERATED, DOCUMENTATION - 10/25/2024 12:07 PM EDT This order has been auto-finalized for image and report archival in PACs. *For full report details, please reach out to your physician. ??This image is visible to you in MyChart.* Authorizing ProviderResult TypeResult StatusNasser Hajar MDIMG OR IMG ORDERABLES Final Result * EGD Report (10/25/2024 12:07 PM EDT)Specimen (Source)Anatomical Location / LateralityCollection Method / VolumeCollection TimeReceived Time Narrative SYSTEMGENERATED, DOCUMENTATION - 10/25/2024 12:07 PM EDT This order has been auto-finalized for image and report archival in PACs. *For full report details, please reach out to your physician. ??This image is visible to you in MyChart.* Authorizing ProviderResult TypeResult StatusNasser Hajar MDIMG OR IMG ORDERABLES Final Result * MRCP with MRI abdomen with and without contrast (10/25/2024 1:33 AM EDT) Anatomical RegionLateralityModalityAbdomen, Body, Body CoveraN/AMagnetic ResonanceSpecimen (Source)Anatomical Location / LateralityCollection Method / VolumeCollection TimeReceived Time10/25/2024 2:31 AM EDT Narrative 10/25/2024 2:39 AM EDT MRI ABDOMEN WITHOUT AND WITH CONTRAST AND MRCP HISTORY: Choledocholithiasis COMPARISON: CT abdomen/pelvis 10/23/2024, abdominal ultrasound 10/23/2024, HIDA scan 10/24/2024 TECHNIQUE: Multiplanar multisequence MR imaging of the abdomen performed prior to and following theuncomplicated intravenous administration of 15 mL ProHance. ??3D reformatted images obtained and reviewed for evaluation of the pancreatic and biliary ductal system at the MR console under concurrent physician supervision. FINDINGS: Benign hemangiomas of bone in the L2 and L3 vertebral bodies. Numerous stones in the gallbladder. The gallbladder is distended. Small amount of pericholecystic fluid. The common bile duct is dilated measuring 0.9 cm. Mild intrahepatic ductal dilatation. No definitive filling defect identified in the common bile duct. The pancreatic duct is not dilated. There is abnormal edema within the pancreas most prominent in the body and tail with peripancreatic fluid. No signal abnormalities in the lung bases. No focal liver mass. The adrenal glands, kidneys, and spleen are unremarkable. No enlarged abdominal lymph nodes. Visualized small and large bowel are of normal caliber. IMPRESSION: * ??Biliary ductal dilatation with the common bile duct measuring 0.9 cm (above normal limits for patient's age). No definitive stone is currently seen in the common bile duct. This dilatation could relate to recently passed common bile duct stone or potentially obstructing stone or stricture at the ampulla (which is very difficult to well evaluate on imaging). Therefore if there remains concern for ongoing CBD obstruction recommend further assessment with ERCP. * ??Findings suggestive of cholecystitis, with numerous stones in the gallbladder, distention of the gallbladder, and small amount of pericholecystic fluid. * ??Acute pancreatitis with abnormal inflammation of the pancreatic body and tail and peripancreatic fluid. Finalized by Alli Mallory MD on 10/25/2024 2:39 AM Procedure Note Alli Mallory MD - 10/25/2024 MRI ABDOMEN WITHOUT AND WITH CONTRAST AND MRCP HISTORY: Choledocholithiasis COMPARISON: CT abdomen/pelvis 10/23/2024, abdominal ultrasound 10/23/2024,HIDA scan 10/24/2024 TECHNIQUE: Multiplanar multisequence MR imaging of the abdomen performedprior to and following the uncomplicated intravenous administration of 15mL ProHance. 3D reformatted images obtained and reviewed for evaluationof the pancreatic and biliary ductal system at the MR console underconcurrent physician supervision. FINDINGS: Benign hemangiomas of bone in the L2 and L3 vertebral bodies. Numerousstones in the gallbladder. The gallbladder is distended. Small amount ofpericholecystic fluid. The common bile duct is dilated measuring 0.9 cm.Mild intrahepatic ductal dilatation. No definitive filling defectidentified in the common bile duct. The pancreatic duct is not dilated. There is abnormaledema within the pancreas most prominent in the body and tail withperipancreatic fluid. No signal abnormalities in the lung bases. No focalliver mass. The adrenal glands, kidneys, and spleen are unremarkable. Noenlarged abdominal lymph nodes. Visualized small and large bowel are of normalcaliber. IMPRESSION: * Biliary ductal dilatation with the common bile duct measuring 0.9 cm(above normal limits for patient's age). No definitive stone is currentlyseen in the common bile duct. This dilatation could relate to recentlypassed common bile duct stone or potentially obstructing stone orstricture at the ampulla (which is very difficult to well evaluate on imaging). Thereforeif there remains concern for ongoing CBD obstruction recommend furtherassessment with ERCP. * Findings suggestive of cholecystitis, with numerous stones in thegallbladder, distention of the gallbladder, and small amount ofpericholecystic fluid. * Acute pancreatitis with abnormal inflammation of the pancreatic bodyand tail and peripancreatic fluid. Finalized by Alli Mallory MD on 10/25/2024 2:39 AM Authorizing ProviderResult TypeResult StatusBertrand Chaffee Hospitalnicole Beckford [facility] MRI ORDERABLESFinal Result * NM hepatobiliary system imaging with pharmacologic agent (10/24/2024 1:26 PM EDT)Anatomical RegionLateralityModalityNuc MedN/ANuclear MedicineSpecimen (Source)Anatomical Location / LateralityCollection Method / VolumeCollection TimeReceived Time10/24/2024 1:37 PM EDT Narrative 10/24/2024 2:06 PM EDT NM HEPATOBILIARY SYS IMAGING W PHARMACOLOGIC AGENT: 10/24/2024 8:30 AM Clinical:Abdominal pain. Cholecystitis. Distended gallbladder with gallstones EXAM: HIDA SCAN HIDA scan performed with IV administration of 5 mCi technetium 99m mebrofenin. There is prompt tracer uptake by liver and no significant excretion seen into gallbladder or small bowel on initial 60 minutes of imaging. Subsequently, imaging after 3 hour delay also shows no activity in gallbladder or small bowel. Impression: Abnormal HIDA scan with no small bowel or gallbladder uptake on initial and 3 hour delayed imaging.Findings are consistent with clinically suspected acute cholecystitis. THIS REPORT CONTAINS A SIGNIFICANT RESULT AND/OR RECOMMENDATION, WHICH REQUIRES THE ATTENTION OF THE LICENSED CAREGIVER RESPONSIBLE FOR THIS PATIENT. THEREFORE, I SPECIFICALLY DESIGNATED THIS REPORT TO BE TELEPHONED BY THE RADIOLOGY DEPARTMENT. Finalized by Alirio Barlow MD on 10/24/2024 2:06 PM Procedure Note Alirio Barlow MD - 10/24/2024 NM HEPATOBILIARY SYS IMAGING W PHARMACOLOGIC AGENT: 10/24/2024 8:30 AM Clinical:Abdominal pain. Cholecystitis. Distended gallbladder withgallstones EXAM: HIDA SCAN HIDA scan performed with IV administration of 5 mCi technetium 99mmebrofenin. There is prompt tracer uptake by liver and no significant excretion seeninto gallbladder or small bowel on initial 60 minutes of imaging. Subsequently, imaging after 3 hour delay also shows no activity ingallbladder or small bowel. Impression: Abnormal HIDA scan with no small bowel or gallbladder uptake on initialand 3 hour delayed imaging. Findings are consistent with clinicallysuspected acute cholecystitis. THIS REPORT CONTAINS A SIGNIFICANT RESULT AND/OR RECOMMENDATION, WHICHREQUIRES THE ATTENTION OF THE LICENSED CAREGIVER RESPONSIBLE FOR THISPATIENT. THEREFORE, I SPECIFICALLY DESIGNATED THIS REPORT TO BE TELEPHONED BY THE RADIOLOGY DEPARTMENT. Finalized by Alirio Barlow MD on 10/24/2024 2:06 PM Authorizing ProviderResult TypeResult StatusMichael W Dashawn DAVIDSON NM ORDERABLES Final Result * Iron and TIBC (10/24/2024 5:28 AM EDT)ComponentValueRef RangeTest Method Analysis TimePerformed AtPathologist LgyqtaqbnQCRP47518 - 170 ug/dL10/24/2024 10:[address] [facility] [id number] - 336 mg/dL 10/24/2024 10:[address] [facility] LABORATORYIRON [id number] - 425 ug/dL10/24/2024 10:[address] [facility]ORYIRON MPYGBVXGDW8082 - 50 % XAOEIUYISF67/17/2025 10:[address] [facility] LABORATORYSpecimen (Source)Anatomical Location / LateralityCollection Method / VolumeCollection TimeReceived TimeBloodVenous blood / Unknown Venipuncture / Lnkxpkf8510/24/2024 5:28 AM EDT10/24/2024 5:50 AM EDT Narrative Authorizing ProviderResult TypeResult StatusYann NAZARIO BLOOD ORDERABLES Final ResultPerforming OrganizationAddressCity/State/ZIP CodePhone Number [facility] [address] [place] [address], * Protime & INR (10/24/2024 5:28 AM EDT)ComponentValueRef RangeTest Method Analysis TimePerformed AtPathologist OmtnhpaebNNFQTFD26.19.8 - 13.2 sec 10/24/2024 6:[address] [facility] LABORATORYINR1.00.9 - 1.2 10/24/2024 6:[address] [facility] LABORATORYSpecimen (Source) Anatomical Location / LateralityCollection Method / VolumeCollection Time Received TimeBloodVenous blood / UnknownVenipuncture / Ioryzko8810/24/2024 5:28 AM EDT10/24/2024 5:49 AM EDT Narrative Authorizing ProviderResult TypeResult StatusMichaeduke Tamez MDLAB BLOOD ORDERABLESFinal ResultPerforming OrganizationAddressCity/State/ZIP CodePhone Number [facility] [address] [place] [address], * (ABNORMAL) CBC without diff (10/24/2024 5:28 AM EDT) Only the most recent of2 resultswithin the time period is included. ComponentValueRef RangeTest MethodAnalysis TimePerformed AtPathologist Signature WBC5.64 - 11 x10E9/L10/24/2024 6:[address] [facility] LABORATORYRBC Count3.22(L)3.8 - 5.2 X10E12/L10/24/2024 6:[address] [facility] JNUDFTOSZXPldyeorqop60.9(L)11.7 - 15.5 g/dL10/24/2024 6:[address] [facility] XBTKSOWJTNMipghpqotn99.0(L)35 - 47 %10/24/2024 6:[address] [facility] JUJNRNVXDUZAV9520 - 100 fL10/24/2024 6:[address] [facility] JZEQDQHFXAHZF57.927 - 34 pg10/24/2024 6:[address] [facility] PBGHKVMUTKRGSE26.132 - 36 g/dL10/24/2024 6:[address] [facility] LEYAAOHJKVLJO25.6(H)11.5 - 15 %10/24/2024 6:[address] [facility] LABORATORYPlatelet Qdwex096791 - 450 X10E9/L10/24/2024 6:[address] [facility] LABORATORYMPV7.17 - 12 fL10/24/2024 6:03 AM EDT [facility] LABORATORYSpecimen (Source)Anatomical Location / LateralityCollection Method / VolumeCollection TimeReceived TimeBloodVenous blood / UnknownVenipuncture / Rarizxx3410/24/2024 5:28 AM EDT10/24/2024 5:49 AM EDT Narrative Authorizing ProviderResult TypeResult StatusMichael W Dashawn HADDADLAB BLOOD ORDERABLESFinal ResultPerforming OrganizationAddressCity/State/ZIP CodePhone Number [facility] [address] [place] [id number], * Folate (10/24/2024 5:28 AM EDT)ComponentValueRef RangeTest MethodAnalysis Time Performed AtPathologist SignatureFOLIC ACID7.6>5.8 ng/mL10/24/2024 1:05 PM EDT [facility] LABORATORYSpecimen (Source)Anatomical Location / LateralityCollection Method / VolumeCollection TimeReceived TimeBloodVenous blood / UnknownVenipuncture / Jvycvzf1410/24/2024 5:28 AM EDT10/24/2024 5:50 AM EDT Narrative Authorizing ProviderResult TypeResult StatusAvigopal NAZARIO BLOOD ORDERABLES Final ResultPerforming OrganizationAddressCity/State/ZIP CodePhone Number [facility] [address] [place] [address], * Ferritin (10/24/2024 5:28 AM EDT)ComponentValueRef RangeTest MethodAnalysis TimePerformed AtPathologist YoeogwjboCVLLXLQQ0465 - 307 ng/mL10/24/2024 10:[address] [facility] LABORATORYSpecimen (Source)Anatomical Location / LateralityCollection Method / VolumeCollection TimeReceived TimeBloodVenous blood / UnknownVenipuncture / Pqqsjku3010/24/2024 5:28 AM EDT10/24/2024 5:50 AM EDT Narrative Authorizing ProviderResult TypeResult StatusAvigopal Reinoso MDLAB BLOOD ORDERABLES Final ResultPerforming OrganizationAddressCity/State/ZIP CodePhone Number [facility] [address] [place] [address], * (ABNORMAL) Vitamin B12 (10/24/2024 5:28 AM EDT)ComponentValueRef RangeTest MethodAnalysis TimePerformed AtPathologist SignatureVITAMIN B63519(L)180 - 914 pg/mL10/24/2024 1:[address] [facility] LABORATORYSpecimen (Source)Anatomical Location / LateralityCollection Method / VolumeCollection TimeReceived TimeBloodVenous blood / UnknownVenipuncture / Wvwckum3210/24/2024 5:28 AM EDT10/24/2024 5:50 AM EDT Narrative Authorizing ProviderResult TypeResult StatusYann Reinoso MDLAB BLOOD ORDERABLES Final ResultPerforming OrganizationAddressCity/State/ZIP CodePhone Number [facility] [address] [place] [address], * (ABNORMAL) Liver panel (10/24/2024 5:28 AM EDT) Only the most recent of2 resultswithin the time period is included. ComponentValueRef RangeTest MethodAnalysis TimePerformed AtPathologist Signature TOTAL PROTEIN5.9(L)6.0 - 8.0 g/dL10/24/2024 9:[address] LABORATORYALBUMIN3.43.2 - 5.3 g/dL10/24/2024 9:[address] LABORATORYBILIRUBIN,TOTAL0.90.3 - 1.2 mg/dL10/24/2024 9:[address] LABORATORYALKALINE TZOMDHYNKXB858(H)39 - 130 U/L10/24/2024 9:47 AM EDT [facility] XHNAHAYGMDHVE997(H)<=41 U/L10/24/2024 9:[address] [facility] PAOELOMKHKEPO188(H)<=31 U/L10/24/2024 9:[address] LABORATORYBILIRUBIN,DIRECT0.5(H)<=0.4 mg/dL10/24/2024 9:[address] [facility] LABORATORYSpecimen (Source)Anatomical Location / LateralityCollection Method / VolumeCollection TimeReceived TimeBloodVenous blood / UnknownVenipuncture / Bcdjqtt5910/24/2024 5:28 AM EDT10/24/2024 5:50 AM EDT Narrative Authorizing ProviderResult TypeResult StatusAvijit Kemar NAZARIO BLOOD ORDERABLES Final ResultPerforming OrganizationAddressCity/State/ZIP CodePhone Number [facility] [address] [place] [address], * (ABNORMAL) Basic Metabolic Panel (10/24/2024 5:28 AM EDT) Only the most recent of2 resultswithin the time period is included. ComponentValueRef RangeTest MethodAnalysis TimePerformed AtPathologist Signature DJOXYR837407 - 146 mmol/L10/24/2024 6:[address] [facility] LABORATORYPOTASSIUM3.73.5 - 5.0 mmol/L10/24/2024 6:[address] [facility] MTQBFCUXVCHKSUFIZY67308 - 109 mmol/L10/24/2024 6:[address] [facility] LABORATORYCARBON VXWBYTE3425 - 32 mmol/L10/24/2024 6:[address] [facility] LABORATORYANION GAP65 - 15 mmol/L10/24/2024 6:[address] LABORATORYBLOOD UREA DPAVGUDE61 - 23 mg/dL10/24/2024 6:[address] LABORATORYCREATININE0.760.40 - 1.00 mg/dL10/24/2024 6:[address] LABORATORYComment:METHOD TRACEABLE TO IDMS DAFTZDUGGVAUZDZ9004 - 99 mg/dL10/24/2024 6:[address] LABORATORYCALCIUM8.4(L)8.5 - 10.5 mg/dL10/24/2024 6:[address] [facility] LABORATORYEGFR Non-Race Dependent>90>=60 ml/min/1.73sq.m010/24/2024 6:[address] [facility] LABORATORYComment: Reported eGFR is based on the CKD-EPI 2020 equation that does not use a race coefficient. Specimen (Source)Anatomical Location / LateralityCollection Method / Volume Collection TimeReceived TimeBloodVenous blood / UnknownVenipuncture / Unknown 10/24/2024 5:28 AM EDT10/24/2024 5:50 AM EDT Narrative Authorizing ProviderResult TypeResult StatusGordy NAZARIO BLOOD ORDERABLESFinal ResultPerforming OrganizationAddressty/State/ZIP CodePhone Number [facility] [address] [place] [address], * , urine (10/24/2024 4:30 AM EDT)ComponentValueRef RangeTest Method Analysis TimePerformed AtPathologist SignatureURINE PREGNANCYNegativeNegative 10/24/2024 6:[address] [facility] LABORATORYSpecimen (Source) Anatomical Location / LateralityCollection Method / VolumeCollection Time Received QkqdEqymq10/17/2025 4:30 AM EDT10/24/2024 4:58 AM EDT Narrative Authorizing ProviderResult TypeResult StatusGordy ORONA ORDERABLES Final ResultPerforming OrganizationAddressty/State/ZIP CodePhone Number [facility] [address] [place] [address], * Creatinine includes GFR, serum (10/23/2024 11:16 PM EDT)ComponentValueRef RangeTest MethodAnalysis TimePerformed AtPathologist SignatureCREATININE0.78 0.40 - 1.00 mg/dL10/24/2024 12:[address] [facility] Comment:METHOD TRACEABLE TO IDMS STANDARDEGFR Non-Race Dependent>90>=60 ml/min/1.73sq.m010/24/2024 12:[address] [facility] Comment: Reported eGFR is based on the CKD-EPI 2020 equation that does not use a race coefficient. Specimen (Source)Anatomical Location / LateralityCollection Method / Volume Collection TimeReceived TimeBloodVenous blood / UnknownVenipuncture / Unknown 10/23/2024 11:16 PM EDT10/23/2024 11:46 PM EDT Narrative Authorizing ProviderResult TypeResult StatusMichael Aparna Tamez MDLAB BLOOD ORDERABLESFinal ResultPerforming OrganizationAddressCity/State/ZIP CodePhone Number [facility] [address] [place] [address], * Ultrasound abdomen limited (10/23/2024 9:05 AM EDT)Specimen (Source)Anatomical Location / LateralityCollection Method / VolumeCollection TimeReceived Time Narrative Authorizing ProviderResult TypeResult StatusScanning Provider ExternalIMG US ORDERABLESFinal Result * CT abdomen and pelvis with contrast (10/23/2024 8:35 AM EDT)Specimen (Source) Anatomical Location / LateralityCollection Method / VolumeCollection Time Received Time Narrative Authorizing ProviderResult TypeResult StatusScanning Provider ExternalIMG CT ORDERABLESFinal Result * X-ray chest 1 view (10/23/2024 8:05 AM EDT)Specimen (Source)Anatomical Location / LateralityCollection Method / VolumeCollection TimeReceived Time Narrative Authorizing ProviderResult TypeResult StatusScanning Provider ExternalIMG DIAGNOSTIC IMAGING ORDERABLESFinal Result from Last 3 Months Insurance Advance Directives * Full Code (Latest Code Status on File) Date ActivatedDate InactivatedComments10/23/2024 10:52 PM10/26/2024 9:02 PM Care Teams Team MemberRelationshipSpecialtyStart DateEnd Date Marques Swenson DO [address] [place] [address] PCP - GeneralFamily Medicine10/30/24
--- OUTSIDE RECORDS SUMMARY | 2024-12-28 13:26 | XMS_ITS | Clinical Summary ---
Author Organization [facility] Address [address] [place] [address] Care Team Providers Care Community Mental Health Worker Name Role Phone Marques Swenson MD Primary Care Provider [phone] Allergies Active AllergyReactionsCriticalityNoted KctrLbzlcpjuDqmbytLmkhs28/31/2023 Other Reaction(s): Unknown XjpxjTqdxe11/31/2023 Other Reaction(s): Unknown Sulfa (Sulfonamide Antibiotics)Other05/23/2013 Social History Tobacco UseTypesPacks/DayYears UsedDateSmoking Tobacco: Every DayCigarettes Smokeless Tobacco: Never Tobacco Cessation:Ready to Q uit: Not Asked; Counseling Given: Not Answered Alcohol UseStandard Drinks/WeekCommentsYes0 (1 standard drink = 0.6 oz pure alcohol)SOMECommentsNoSex and Gender InformationValueDate RecordedSex Assigned at EhzbbKohuxu98/04/2025 8:23 AM ESTLegal YmhFztpkd37/29/2022 11:08 PM EDTGender VykwkvctNmdrbb74/04/2025 8:23 AM ESTSexual OrientationChoose not to ueswsstw07/04/2025 8:23 AM EST Last Filed Vital Signs Vital SignReadingTime TakenCommentsBlood Painikaq623/7403/13/2024 9:46 AM EST Vcqlr740803/13/2024 9:46 AM XHTKvtqhaznytn50.5 ??C (97.7 ??F)03/13/2024 8:02 AM ESTRespiratory Reqv416203/13/2024 9:46 AM ESTOxygen Ffxcddrlgz316%03/13/2024 9:46 AM ESTInhaled Oxygen Concentration--Afkbkq94 kg (172 lb)03/13/2024 8:11 AM EST Ycitss761.6 cm (5' 6 )03/13/2024 8:11 AM ESTBody Mass Index27.76003/13/2024 8:11 AM EST Plan of Treatment Health MaintenanceDue DateLast DoneCommentsDepression Hddcwnpjd00/28/1994 Varicella Vaccines (1 of 2 - 13+ 2-dose series)1994Hepatitis B Vaccines (1 of 3 - 19+ 3-dose series)2000Pneumococcal Vaccine: Pediatrics (0 to 5 Years) and At-Risk Patients (6 to 64 Years) (1 of 2 - PCV)2000HPV Vaccines (1 - 3-dose SCDM series)2008HPV/Wghrbu9804/06/20112508Yqslprqms14/28/2022COVID- 19 Vaccine ( season)/, 08/25/2021, 01/06/2021, Additional history existsInfluenza Vaccine (#1)511/11/2021, 12/14/2019, 12/07/2019, Additional history existsCervical Cancer Lqybigqag96/01/2026Pap Smear/02/2022Zoster Vaccines (1 of 2)2Adult Tetanus /HIB VaccinesAged OutNo longer eligible based on patient's age to complete this topicIPV VaccinesAged OutNo longer eligible based on patient's age to complete this topicMeningococcal B VaccineAged OutNo longer eligible based on patient's age to complete this topicMeningococcal VaccineAged OutNo longer eligible based on patient's age to complete this topicRotavirus VaccinesAged OutNo longer eligible based on patient's age to complete this topic Insurance Care Teams Team MemberRelationshipSpecialtyStart DateEnd Date Marques Swenson MD [address] [place] [address] PCP - [facility]03/13/24
--- OUTSIDE RECORDS SUMMARY | 2024-12-28 13:27 | XMS_ITS | Clinical Summary ---
Author Organization [facility] Address [address] [place] [address] Care Team Providers Care Enterprise Account Manager Name Role Phone Marques Swenson DO Primary Care Provider [phone] Allergies Active AllergyReactionsCriticalityNoted ZcloBeeknnatOdesxkJwsgphj41/31/2023Latex Oypcvye4912/07/2022Sulfa Wumxotdbgwv08/16/2014 Medications MedicationSigDispense QuantityRefillsLast FilledStart DateEnd DateStatus busPIRone (Buspar) 15 MG tablet 3Active DULoxetine (Cymbalta) [address] capsule Take 60 mg by mouth in the morning.Active meloxicam (Mobic) 15 MG tablet 1 tablet Daily06/21/2023ctive pantoprazole (ProtoNix) 40 MG EC tablet 5Active cyclobenzaprine (Flexeril) 10 MG tablet Take 10 mg by mouth 3 (three) times a day as needed for muscle apwvhz2104/13/2024 Active Cyanocobalamin 5000 MCG capsule Daily5Active acetaminophen (Tylenol) 325 MG tablet Take 650 mg by mouth every 4 (four) hours if pqxovv475Active pyridoxine (B-6) 100 MG tablet Indications:Breast tendernessTake 1 tablet (100 mg) by mouth in the morning and 1 tablet (100 mg) before bedtime. 60 tablet ctive Ascorbic Acid (Vitamin C) 500 MG capsule as directed Ebvyql7012/12/2024Discontinued(Therapy completed) CALCIUM PO Take 500 mg by mouth in the morning.12/12/2024Discontinued(Therapy completed) cholecalciferol (Vitamin D-3) 25 MCG (1000 UT) tablet Take 1,000 Units by mouth in the morning.12/12/2024Discontinued(Therapy completed) ferrous gluconate (Fergon) 324 (38 Fe) MG tablet Take 324 mg by mouth in the morning. Take with meals.12/12/2024Discontinued (Therapy completed) Wegovy 1 MG/0.5ML solution auto-injector INJECT 1MG (0.5ML) SUBCUTANEOUSLY ONCE EVERY WEEK12/12/2024Discontinued(Therapy completed) ketorolac (Toradol) 10 MG tablet Take 1 tablet by mouth 3 (three) times a day as uaskyg02 Discontinued(Therapy completed) Multiple Vitamin (MULTIVITAMIN PO) 1 wwnrur80Discontinued(Therapy completed) Active Problems ProblemNoted DateDiagnosed WqxcRmvumsst37/05/2025nxiety with depression 12/12/2023hronic ofrvklmbwqviy09/31/6549Rermdob23/31/2023 Resolved Problems ProblemNoted DateDiagnosed DateResolved LiaiCytnbwg92Other chronic painSalivary stoneStatus post ypukenuuxltg55 Encounters DateTypeDepartmentCare DgwiTkyaelllptl02/05/2025 2:00 PM ESTOffice Visit [facility] [address] [place] [address] Destinee Bradford, Encounter for gynecological examination without abnormal finding (Primary Dx); Encounter for Papanicolaou smear of vagina; Breast cancer screening by mammogram; Breast owsfgfkqrz10/05/2025Travelfrom Last 3 Months Immunizations ImmunizationAdministration DatesNext DueInfluenza, Irkcksrcnac91/10/2022, 12/14/2019Influenza, injectable, quadrivalent, preservative free12/17/2021, 12/14/2019Influenza, seasonal, ngfqgsviqo30/30/2020Novel Aierlnjey-V8L8-47, nasal12/03/20082708JTDF-BWE-0 (COVID-19) vaccine, mRNA, spike protein, LNP, PF, 50 mcg/0.5 mL12/01/2022Tdap102/26/2021 Family History Medical HistoryRelationNameCommentsColon cancerMaternal GrandfatherCancer Maternal GrandmotherRelationNameStatusCommentsFatherDeceasedMaternal Grandfather Maternal GrandmotherMotherAlive Social History Tobacco UseTypesPacks/DayYears UsedDateSmoking Tobacco: Every DayCigarettes Smokeless Tobacco: Never Tobacco Cessation:Ready to Q uit: Not Asked; Counseling Given: Not Answered Alcohol UseStandard Drinks/WeekCommentsYes0 (1 standard drink = 0.6 oz pure alcohol)Caffeine intake: 2-3 cups per dayPHQ-2AnswerDate RecordedPatient Health Questionnaire-2 Qxtjm36802/12/2024UDIT-CAnswerDate RecordedQ1: How often do you have a drink containing alcohol?Monthly or less12/12/2024Q2: How many drinks containing alcohol do you have on a typical day when you are drinking?1 or 2 12/12/2024Q3: How often do you have six or more drinks on one occasion?Never 12/12/2024CommentsNoSex and Gender InformationValueDate RecordedSex Assigned at BirthNot on fileLegal QrcOvkbsb74/15/2023 6:57 PM EDTGender Identity Not on fileSexual OrientationNot on file Last Filed Vital Signs Vital SignReadingTime TakenCommentsBlood Zamaowxi341/7212/12/2024 1:55 PM EST Pulse--Temperature--Respiratory Rate--Oxygen Saturation--Inhaled Oxygen Concentration--Vwybhh66.6 kg (160 lb)12/12/2024 1:55 PM FSRVodsrs482.6 cm (5' 6 )12/12/2024 1:55 PM ESTBody Mass Index25.8212/12/2024 1:55 PM EST Plan of Treatment DateTypeDepartmentCare Team (Latest Contact Info)Trxpnquognx79/10/2026 3:30 PM ESTOffice Visit [facility]EL [facility] [address] [place] [address] Destinee Bradford, DO [address] [place] [address] Health MaintenanceDue DateLast BailLkpmcxagGkvqbufyh50/29/202411/29/2023COVID-19 Vaccine ( season)507/, 01/06/2021, 03/10/2020, Additional history existsInfluenza Vaccine (#1)511/11/2021, 12/17/2021, 12/14/2019, Additional history existsPap Smearervical Cancer Mqcvpwpbj87/05/2030HPV/Vvzzlf71, 4Pneumococcal Vaccine: Pediatrics (0 to 5 Years) and At-Risk Patients (6 to 64 Years)Aged Out No longer eligible based on patient's age to complete this topic Procedures Procedure NamePriorityDate/TimeAssociated DiagnosisCommentsIGP,RFXAPTIMA HPV ALL,16/18,29Fjtjmdt63/05/2025 12:00 AM EST Encounter for Papanicolaou smear of vagina MM TOMOSYNTHESIS SCREENING BI01/05/2023 11:45 AM EST PAP UKPVILdgpzaq98/01/2023 2:05 PM EDTfrom Last 3 Months or Most Recently Relevant to Health Maintenance Results * IGP,rfxAptima HPV all,16/18,45 (12/12/2024 12:00 AM EST)ComponentValueRef RangeTest MethodAnalysis TimePerformed AtPathologist SignatureDiagnosis: CommentLABCORPComment:NEGATIVE FOR INTRAEPITHELIAL LESION OR MALIGNANCY. Specimen Adequacy:CommentLABCORPComment:Satisfactory for evaluation. No endocervical component is identified.Clinician Provided ICD10:CommentLABCORP Comment:Z12.72Performed By:CommentLABCORPComment:Diana Awan, Account Developer (ASCP)Cyto Comments.LABCORPNote:CommentLABCORPComment: The Pap smear is a screening test designed to aid in the detection of premalignant and malignant conditions of the uterine cervix. ??It is not a diagnostic procedure and should not be used as the sole means of detecting cervical cancer. ??Both false-positive and false-negative reports do occur. Test Methodology:CommentLABCORPComment: This liquid based ThinPrep(R) pap test was interpreted using the Advizzer(R) Genius(TM) Cervical Algorithm whole slide imaging system. .CommentLABCORPComment: The HPV DNA reflex criteria were not met with this specimen result therefore, no HPV testing was performed. Specimen (Source)Anatomical Location / LateralityCollection Method / Volume Collection TimeReceived TimeSwabVaginal structure / Grdqgip01 Comment:Vagina Print requisit Narrative [facility] - 12/14/2024 2:08 PM EST Performed at: 01 - [facility] [address] [place] [address] ??[id number] Sorting And Folding Supervisor: Chavez Bowling MD, Phone: ??[phone] Performed at: ??02 - [facility] [address] ??[id number] Sorting And Folding Supervisor: Jaja Ross MD, Phone: ??[phone] Specimen Comment: [id number] Specimen Comment: No. of containers..01 ThinPrep Vial Authorizing ProviderResult TypeResult StatusWilliam Dagmar Bradford [facility] CYTOLOGY ORDERABLESFinal ResultPerforming OrganizationAddressCity/State/ZIP CodePhone Number [facility] * MM TOMOSYNTHESIS SCREENING BI (01/05/2023 11:45 AM EST)Anatomical Region LateralityModalityOtherSpecimen (Source)Anatomical Location / Laterality Collection Method / VolumeCollection TimeReceived Time01/05/2023 11:45 AM EST Narrative 01/05/2023 11:45 AM EST [facility] ?[address] ? [place] [address] ? Mammography Report ? Signed ? Patient: ZOHAIB BOYER ? MR#: [id number] ?? : 1980 ?Acct:[id number] ?? Age/Sex: 42 / F ?ADM Date: 11/24/23 ?? Loc: MAMMO ? Attending : DESTINEE BRADFORD ? Ordering Physician: DESTINEE BRADFORD ? Results: ? Date of Service: 12/31/22 ?Follow Up: ? Procedure(s): MM tomosynthesis screening BI ?? Accession Number(s): [id number] ? cc: DESTINEE BRADFORD ; Physician,Non-Staff M.D. ? Patient Name: ? ZOHAIB BOYER ? MR#: [id number] ? : 1980 ? Exam Date: 12/31/2022 ?? Ordering Doctor: DR DESTINEE BRADFORD ? RADIOLOGY REPORT ? PROCEDURE: ? MM TOMOSYNTHESIS SCREENING BI ? COMPARISON: ? MG MAMM SCREEN 3D HILDA CAD, 09/07/2021. ? INDICATIONS: ? Screening ? Calculator Name ? NCI Breast Cancer Risk Assessment Tool ?? 5 Year Breast Cancer Risk ? 0.50% ?? Lifetime Breast Cancer Risk ? 8.20% ?? Personal Breast Cancer ?No ?? Personal Ovarian Cancer ? No ?? Treatments ? None ?? Family Cancers ? Grandmother-maternal with colon cancer at age 70. ? LOCATION: ? [facility] ? BREAST COMPOSITION: ? Heterogeneously dense,which may obscure small masses. ? FINDINGS: ? DIAGNOSTIC CATEGORY 1--NEGATIVE. ? RIGHT BREAST: ??No significant suspicious finding. ??No significant change has ?? occurred. ? LEFT BREAST: ??No significant suspicious finding. ??No significant change has ?? occurred. ? RECOMMENDATIONS: ? ROUTINE MAMMOGRAM AND CLINICAL EVALUATION IN 12 MONTHS. ? PLEASE NOTE: ??A NORMAL MAMMOGRAM DOES NOT EXCLUDE THE POSSIBILITY OF BREAST ?? CANCER. ??A CLINICALLY SUSPICIOUS PALPABLE LUMP SHOULD BE BIOPSIED. ? Dictated by: Vu Olivas M.D. on 01/05/2023 at 11:43 ? Approved by: Vu Olivas M.D. on 01/05/2023 at 11:45 ? Dictated By: ?Vu Olivas M.D. ? Signed By: ?01/05/23 1146 ? DD/ 1145 ? TD/TT: ? Book Mender: Procedure Note Radiology, Radiologist, MD - 01/05/2023 [facility] [place] [id number] Mammography Report Signed Patient: ZOHAIB BOYER [facility]#: [id number] : 1980Acct:[id number] Age/Sex: 42 / FADM Date: 12/31/22 Loc: MAMMO Attending Dr: DESTINEE BRADFORD Ordering Physician: DESTINEE BRADFORDResults: Date of Service: 12/31/22Follow Up: Procedure(s): MM tomosynthesis screening BI Accession Number(s): [id number] cc: DESTINEE BRADFORD ; Physician,Non-Staff M.D. Patient Name: ZOHAIB BOYER MR#: [id number] : 1980 Exam Date: 12/31/2022 Ordering Doctor: DR DESTINEE BRADFORD RADIOLOGY REPORT PROCEDURE: MM TOMOSYNTHESIS SCREENING BI COMPARISON: MG MAMM SCREEN 3D HILDA CAD, 09/07/2021. INDICATIONS: Screening Calculator Name NCI Breast Cancer Risk Assessment Tool 5 Year Breast Cancer Risk 0.50% Lifetime Breast Cancer Risk 8.20% Personal Breast Cancer No Personal Ovarian Cancer No Treatments None Family Cancers Grandmother-maternal with colon cancer at age 70. LOCATION: [facility] BREAST COMPOSITION: Heterogeneously dense,which may obscure [...] M.D. Signed By:01/05/23 1146 DD/ 1145 TD/TT: Book Mender: Authorizing ProviderResult TypeResult StatusDestinee Bradford DOCLINISYNC IMAGING Final Result * Pap Smear (12/08/2022 2:05 PM EDT)Specimen (Source)Anatomical Location / LateralityCollection Method / VolumeCollection TimeReceived TimeSwabCervical swab / Unknown Narrative Authorizing ProviderResult TypeResult Palma Bradford [facility] CYTOLOGY ORDERABLESFinal Result from Last 3 Months or Most Recently Relevant to Health Maintenance Insurance Care Teams Team MemberRelationshipSpecialtyStart DateEnd Date Marques Swenson DO [address] [facility] [place] [address] PCP - Dgyltxe42/1/23
--- OUTSIDE RECORDS SUMMARY | 2024-12-28 13:28 | XMS_ITS | CCD ---
Author Organization [facility] Care Team Providers Care Government Affairs Fellow Name Role Phone Tanvi Donaldson Unavailable Mast, Brittany Unavailable EVERARDO, DR MOURA Attending Unavailable KARASIK, DR MOURA Admitting Unavailable KARASIK, DR MOURA Consulting Unavailable REQUEST, DR CROSS LISTED Primary Care Unavaila ble KARASIK, DR MOURA Admitting Unavailable KARASIK, DR MOURA Consulting Unavailable KARASIK, DR MOURA Attending Unavailable ZIEBER, DR MICKY Jimenez Consulting Unavailable Celia Thorpe Unavailable Brittany Swenson MD Primary Care Provider Mast DO, Brittany Attending Provider Mast, Brittany Attending Unavailable Mast, Brittany Admitting Unavailable NO FAMILY, PHYSICIAN Primary Care Unavailable AIDAN PADILLA Referring Unavailable AIDAN PADILLA Attending Unavailable NO FAMILY, PHYSICIAN Primary Care Provider Unava ilable ANTHONY STILL Attending Unavailable MAST, BRITTANY E Referring Unavailable ANTHONY STILL Attending Unavailable MAST, BRITTANY E Primary Care Physician ANAMIKA LACEY A Referring Unavailable MAST, BRITTANY D Primary Care Unavailable DOANAMIKA MOORE A Referring Unavailable MAST, BRITTANY D Primary Care Unavailable MAST, BRITTANY D Referring Unavailable MAST, BRITTANY D Primary Care Unavailable MAST, BRITTANY D Referring Unavailable MAST, BRITTANY D Primary Care Unavailable Mast DO, Brittany E Primary Care Provider [phone] JUAQUIN AGUILAR Referring Unavailable MAST, BRITTANY E Primary Care Unavailable Mast DO, Brittany Primary Care Provider Mast DO, Rbittany Attending Provider TROY SOLOMON Admitting Unavailable DIABHEIDE Referring Unavailable MAST, BRITTANY D Primary Care Unavailable CYNTHIA MUNOZ Consulting Unavailable SANJUANITA MARROQUIN Attending Unavailable ([facility] ONLY), SURGERY TEAM C Consulting SHANON Baker Attending Unavailable MAST, BRITTANY D Referring Unavailable MAST, BRITTANY E Primary Care Unavailable Mast DO, Brittany E Primary Care Provider [phone] AIDAN DORAN Attending Unavailable Allergies Allergy ClassificationReported Allergen(s)Allergy TypeDate of OnsetReaction(s) Facility (20 sources)Richard; Translations: [RICHARD]Propensity to adverse reactions 47-34-9445sqikcijovneTvxvhmcddMer[facility] ([facility] sources)Latex; Translations: [latex]Drug -03-6901Mjkw irritation (disorder), Swelling (finding), Rash, UnknownNort [place] Other (2 sources)richard rootDrug Jjlbeok47-02-6930UjdhunlTKOX [facility] (2 sources)Sulfonamides (Antibiotic)Drug Ajkatrrrwom25-72-2144[facility] (1 source)Richard extractDrug Jakvdgp15-56-0471XnfedvxxaUniversity [facility]als [facility] (1 source)Sulfonamides (Antibiotic); Translations: [SULFA (SULFONAMIDE ANTIBIOTICS)]Propensity to adverse reactions to drug (disorder)05-23-2013 [facility] Repository (4 sources)Richard extract; Translations: [richard]Drug Esktrsk84-02-4607 Anaphylaxis (disorder), AnaphylaxisExecutive Urology of Hol[facility] System Medications Current Medications MedicationDrug Class(es)DatesSig (Normalized)Sig (Original)acetaminophen 325 mg oral tablet (4 sources)Start: 20-55-4976kgzi 2 tablets by mouth every four hours as needed acetaminophen (Tylenol) 325 MG tablet Take 650 mg by mouth every 4 (four) hours if needed 10/26/2024 Activeascorbic acid 500 mg oral capsule (10 sources)Vitamin CStart: 06-21-2023 End: 59-61-0905lhpg 1 tablet by mouth once dailyAscorbic Acid (Vitamin C) 500 mg capsule Active 1 TAB PO Daily June 21, 2023 12:00am FreeTextSi tablet Orally Daily; Note: Source Status: Taking; Provider: Messi Mohan ( ) Complies with drug therapycyclobenzaprine hydrochloride 10 mg oral tablet (1 source)Muscle RelaxantStart: 81-62-0171wrux 1 tablet by mouth three times daily as needed for muscle spasmscyclobenzaprine (Flexeril) 10 MG tablet Take 10 mg by mouth 3 (three) times a day as needed for muscle spasms 04/13/2024 Active DULoxetine 60 mg delayed release oral capsule (20 sources)Serotonin and Norepinephrine Reuptake InhibitorStart: 11-25-2023 End: 31-50-5288xaej 1 capsule by mouth once dailyDuloxetine 60 mg capsule,delayed release(DR/EC) Active 0 .ROUTE .COMPLEX 90 3 November 19, 2024 7:20am Take 1 capsule by mouth once daily Complies with drug therapyStart: 06-21-2023 End: 31-79-1927brbz 1 capsule by mouth once dailyDuloxetine 60 mg capsule,delayed release(DR/EC) Discontinued 60 MG PO Daily June 21, 2023 12:00am November 25, 2023 8:09am FreeTextSig: Take 1 capsule by mouth once daily; Note: Source Status: Taking; Refills: 5; Provider: Messi Mohan EFLUoxetine 10 mg oral capsule (1 source)Serotonin Reuptake InhibitorStart: 39-15-7327ZPFvhbtkiy 10 mg Cap Oral, Refills(s) 0 Start Date: 03/23/24 Status: Orderedfluticasone propionate 0.05 mg/actuat metered dose nasal spray (4 sources)CorticosteroidStart: 50-72-1284ybzf 2 spray(s) nasal route once daily Fluticasone Propionate 50 MCG/ACT 2 sprays Nasally Once a day for 14 day(s) Jul, ActiveStart: 11-75-9304efwt 2 spray(s) nasal route once daily Fluticasone Propionate 50 MCG/ACT 2 sprays Nasally Once a day for 14 day(s) Jul, Activeketorolac tromethamine 10 mg oral tablet (3 sources)Nonsteroidal Anti-inflammatory Drug, Cyclooxygenase InhibitorStart: 03-23-2024 End: 10-03-1080zpjg 1 tablet by mouth every six hours as needed for pain ketorolac 10 mg Tab 10 mg = 1 tab(s), Oral, q6hr, PRN for pain, do not take mobic/meloxicam same day as this medication., X 5 day(s), # 12 tab(s), Refills(s) 0, Pharmacy: [id number], 167, cm, 03/23/24 9:30:00 EST, Height/Length Dosing, 78.5, kg, 03/23/24 9:30:00 EST, Weight Dosing Start Date: 03/23/24 Stop Date: 03/28/24 Status: OrderedStart: 07-01-2023 End: 11-51-8385rxem 1 tablet by mouth three times daily as neededketorolac (Toradol) 10 MG tablet Take 1 tablet by mouth 3 (three) times a day as needed 07/01/2023 12/12/2024 Discontinued (Therapy completed)meloxicam 15 mg oral tablet (20 sources)Nonsteroidal Anti-inflammatory DrugStart: 06-21-2023 End: 35-58-2022nbkgbhcur (Mobic) 15 MG tablet 1 tablet Daily 06/21/2023 Active Start: 65-21-2194llue 1 tablet by mouth every twenty-four hoursMeloxicam 15 MG 1 tablet Orally Once a day for 90 days Jul, ActiveMulti For Her (10 sources)take 1 tablet by mouth once dailyMulti For Her 1 Tablet Orally daily Activepantoprazole 40 mg delayed release oral tablet (7 sources)Proton Pump InhibitorStart: 10-27-2024 End: 35-90-2469Ufdaxnpxteft 40 mg tablet,delayed release (DR/EC) Active MG PO November 08, 2024 12:00am Complies with drug therapytamsulosin hydrochloride 0.4 mg oral capsule (1 source)alpha-Adrenergic BlockerStart: 94-83-2622lyrz 1 capsule by mouth once dailyFlomax 0.4 mg Cap 0.4 mg = 1 cap(s), Oral, Daily, # 30 cap(s), Refills(s) 0, Pharmacy: [id number], 167, cm, 03/23/24 9:30:00 EST, Height/Length Dosing, 78.5, kg, 03/23/24 9:30:00 EST, Weight Dosing Start Date: 03/23/24 Status: Orderedvitamin b12 5 mg oral capsule (6 sources)Vitamin H08Crael: 76-12-9495Fxwcjxlmcpfjkb 5000 MCG capsule Daily 11/08/2024 ActiveStart: 93-74-2770gkqn 1 tablet by mouth in the morning cyanocobalamin 1000 MCG tablet Take 1 tablet (1,000 mcg total) by mouth in the morning. 30 tablet 10/26/2024 Activevitamin b6 100 mg oral tablet (1 source)Start: 12-12-2024 End: 35-30-6429liuq 1 tablet by mouth in the morningpyridoxine (B-6) 100 MG tablet Indications: Breast tenderness Take 1 tablet (100 mg) by mouth in the morning and 1 tablet (100 mg) before bedtime. 60 tablet 2 12/12/2024 03/12/2025 ActiveVitamin C 500 MG (9 sources)take 1 tablet by mouth once dailyVitamin C 500 MG 1 tablet Orally Daily Active Completed/Discontinued Medications MedicationDrug Class(es)DatesSig (Normalized)Sig (Original)[id number] 200 actuat albuterol 0.09 mg/actuat metered dose inhaler (4 sources)beta2-Adrenergic AgonistStart: 76-63-6538nwbq 2 puff(s) by inhalation every four hours as neededAlbuterol Sulfate HFA 108 (90 Base) MCG/ACT 2 puffs as needed Inhalation every 4 hrs Jan, Not-TakingStart: 71-75-8311qqgc 2 puff(s) by inhalation every four hours as neededAlbuterol Sulfate HFA 108 (90 Base) MCG/ACT 2 puffs as needed Inhalation every 4 hrs Jan, Not-Taking amoxicillin 875 mg / clavulanate 125 mg oral tablet (8 sources)Penicillin-class AntibacterialStart: 06-07-2024 End: 51-22-2162rjsk 1 tablet by mouth twice dailyAmoxicillin-Pot Clavulanate 875-125 mg tablet Discontinued 1 TAB PO Twice daily 20 10 0 June 07, 2024 12:00am June 19, 2024 4:32pmStart: 96-09-7971cqjf 1 tablet by mouth every twelve hoursAmoxicillin-Pot Clavulanate 875-125 MG 1 tablet Orally every 12 hrs for 10 day(s) Jul, Not-Taking/PRNbusPIRone hydrochloride 15 mg oral tablet (20 sources)Start: 65-82-0703zwrv 2 tablets by mouth once daily in the evening busPIRone 15 mg Tab 30 mg, Oral, qPM, Refills(s) 0 Start Date: 03/23/24 Status: OrderedStart: 10-04-2023 End: 54-93-9473exon 1 tablet by mouth twice dailyBuspirone 15 mg tablet Discontinued 0 .ROUTE .COMPLEX 60 5 April 02, 2024 7:52am October 01, 2024 6:49am Take 1 tablet by mouth twice dailyStart: 12-07-2022 End: 45-34-6243qauPZPiyr (Buspar) 15 MG tablet 12/07/2022 ActiveStart: 84-20-7709yrii 1 tablet by mouth every twelve hoursbusPIRone HCl 10 MG 1 tablet Orally Twice a day for 30 days Nov, ActiveCalcium (2 sources)Phosphate Binder, Calcium End: 10-72-7699ddxa 500 mg by mouth in the morningCALCIUM PO Take 500 mg by mouth in the morning. 12/12/2024 Discontinued (Therapy completed)take 500 mg by mouth in the morningCALCIUM PO Take 500 mg by mouth in the morning. Active cholecalciferol 0.025 mg oral tablet (2 sources)Vitamin D End: 61-90-6863nqkc 1 tablet by mouth in the morningcholecalciferol (Vitamin D- 3) 25 MCG (1000 UT) tablet Take 1,000 Units by mouth in the morning. 12/12/2024 Discontinued (Therapy completed)estradiol 1 mg oral tablet (10 sources)EstrogenStart: 06-21-2023 End: 04-04-2276faok 1 tablet by mouth once dailyEstradiol 1 mg tablet Discontinued 1 TAB PO Daily June 21, 2023 12:00am February 10, 2024 12:06pm F reeTextSi tablet Orally Once a day; Note: Source Status: Taking; Provider: Messi Mohan ( )take 1 tablet by mouth every twenty-four hours Estradiol 1 MG 1 tablet Orally Once a day Activeferrous gluconate 324 mg oral tablet (2 sources) End: 04-67-7122ssib 1 tablet by mouth at mealtimeferrous gluconate (Fergon) 324 (38 Fe) MG tablet Take 324 mg by mouth in the morning. Take with meals. 12/12/2024 Discontinued (Therapy completed)fluconazole 150 mg oral tablet (11 sources)Azole AntifungalStart: 03-06-2024 End: 83-60-9363amwx 1 tablet by mouth onceFluconazole 150 mg tablet Discontinued 150 MG PO Once 1 0 March 06, 2024 1:00am June 07, 2024 11:30amStart: 81-05-6780qfhz 1 tablet by mouth onceDiflucan 150 MG 1 tablet Orally once for 1 day Take 1 tablet p.o. upon onset of symptoms of vaginalyeast infection Dec, Not-Takingfolic acid 1 mg oral tablet (5 sources)Start: 10-26-2024 End: 68-12-1628cavi 1 tablet by mouth once dailyFolic Acid 1 mg tablet Discontinued 1 MG PO Daily November 08, 2024 12:00am December 04, 2024 1:37pm Multiple Vitamin (MULTIVITAMIN PO) (2 sources)Start: 06-21-2023 End: 79-90-5036Khzpvycy Vitamin (MULTIVITAMIN PO) 1 tablet 06/21/2023 12/12/2024 Discontinued (Therapy completed)Start: 68-55-1215Qvoccpnk Vitamin (MULTIVITAMIN PO) 1 tablet 06/21/2023 ActiveMultivitamin (Daily Multi-Vitamin) tablet (7 sources)Start: 06-21-2023 End: 30-52-0821ermw 1 tablet by mouth once dailyMultivitamin (Daily Multi- Vitamin) tablet Discontinued 1 TAB PO Daily June 21, 2023 12:00am November 08, 2024 2:56pmStart: 92-52-8184hjoz 1 tablet by mouth once dailyMultivitamin (Daily Multi-Vitamin) tablet Active 1 TAB PO Daily June 21, 2023 12:00amStart: 42-69-7368zfmx 1 tablet by mouth once dailyMultivitamin (Daily Multi-Vitamin) tablet Active 1 TAB PO Daily June 20, 2023 11:00pmmupirocin 0.02 mg/mg topical ointment (4 sources)RNA Synthetase Inhibitor AntibacterialStart: 03-92-3678Dyhjwxicg 2 % 1 application Externally Three times a day for 5 day(s) Oct, Not-Taking nitrofurantoin, macrocrystals 25 mg / nitrofurantoin, monohydrate 75 mg oral capsule (4 sources)Nitrofuran AntibacterialStart: 04-61-2383obje 1 capsule by mouth every twelve hoursMacrobid 100 MG 1 cap(s) Orally bid for 5 day(s) Dec, Not-Takingpenicillin v potassium 500 mg oral tablet (4 sources)Start: 45-67-0664cgnw 1 tablet by mouth every eight hoursPenicillin V Potassium 500 MG 1 tablet Orally tid for 10 day(s) Oct, Not-Taking phenazopyridine hydrochloride 200 mg oral tablet (4 sources)Start: 50-09-5835unln 1 tablet by mouth every eight hoursPyridium 200 MG 1 tablet after meals Orally Three times a day for 2 day(s) Dec, Not-TakingpredniSONE 20 mg oral tablet (4 sources)Start: 32-09-2614psql 1 tablet by mouth every twelve hourspredniSONE 20 MG 1 tablet Orally bid for 5 day(s) Jul, Not-Taking/PRNSemaglutide (Weight Loss) (20 sources)Start: 02-02-2024 End: 27-63-8281glmzpy 1 mg by subcutaneous injection every weekSemaglutide (Weight Loss) (Wegovy) 1 mg/0.5 mL pen injector Discontinued 0 .ROUTE .COMPLEX 4 February 02, 2024 9:03am June 07, 2024 12:02pm INJECT 1MG (0.5ML) SUBCUTANEOUSLY ONCE EVERY WEEKStart: 02-02-2024 End: 44-63-0084egtigs 1 mg by subcutaneous injection every weekSemaglutide (Weight Loss) (Wegovy) 1 mg/0.5 mL pen injector Discontinued 0 .ROUTE .COMPLEX February 02, 2024 9:03am June 07, 2024 12:02pm INJECT 1MG (0.5ML) SUBCUTANEOUSLY ONCE EVERY WEEKStart: 88-52-0438wmeqef 1 mg by subcutaneous injection every weekSemaglutide (Weight Loss) (Wegovy) 1 mg/0.5 mL pen injector Active 0 .ROUTE .COMPLEX 4 February 02, 2024 8:03am INJECT 1MG (0.5ML) SUBCUTANEOUSLY ONCE EVERY WEEKStart: 11-10-2023 End: 62-33-5180qxbdyo 1 mg by subcutaneous injection every weekSemaglutide (Weight Loss) (Wegovy) 1 mg/0.5 mL pen injector Discontinued 0 .ROUTE .COMPLEX 4 2 November 10, 2023 4:19pm February 02, 2024 9:03am INJECT 1MG (0.5ML) SUBCUTANEOUSLY ONCE EVERY WEEKStart: 11-10-2023 End: 96-58-5581nzcfhm 1 mg by subcutaneous injection every weekSemaglutide (Weight Loss) (Wegovy) 1 mg/0.5 mL pen injector Discontinued 0 .ROUTE .COMPLEX 4 November 10, 2023 4:19pm February 02, 2024 9:03am INJECT 1MG (0.5ML) SUBCUTANEOUSLY ONCE EVERY WEEKStart: 11-10-2023 End: 55-47-9688xbppom 1 mg by subcutaneous injection every weekSemaglutide (Weight Loss) (Wegovy) 1 mg/0.5 mL pen injector Discontinued 0 .ROUTE .COMPLEX 4 November 10, 2023 3:19pm February 02, 2024 8:03am INJECT 1MG (0.5ML) SUBCUTANEOUSLY ONCE EVERY WEEKStart: 10-18-2023 End: 94-17-1952Xkfjlcpxraz (Weight Loss) 1 mg/0.5 mL pen injector Discontinued 1 MG SUBCUT every week 2 0 October 18, 2023 12:43pm November 10, 2023 4:19pm Start: 10-18-2023 End: 40-18-9947Hldjhifpedp (Weight Loss) 1 mg/0.5 mL pen injector Discontinued 1 MG SUBCUT every week 2 October 18, 2023 12:43pm November 10, 2023 4:19pm Start: 10-18-2023 End: 97-50-1758Drwrdafnvcp (Weight Loss) 1 mg/0.5 mL pen injector Discontinued 1 MG SUBCUT every week 2 October 18, 2023 11:43am November 10, 2023 3:19pm Semaglutide (Weight Loss) (14 sources)Start: 08-18-2023 End: 95-40-6463Fvmkpzvlmkb (Weight Loss) (Wegovy) 0.25 mg/0.5 mL pen injector Discontinued 0 .ROUTE .COMPLEX 4 0 August 18, 2023 12:08pm August 19, 2023 10:48am INJECT 1 SYRINGE SUBCUTANEOUSLY ONCE A WEEKStart: 08-18-2023 End: 64-93-9702Ielxuufetdz (Weight Loss) (Wegovy) 0.25 mg/0.5 mL pen injector Discontinued 0 .ROUTE .COMPLEX 4 August 18, 2023 12:08pm August 19, 2023 10:48am INJECT 1 SYRINGE SUBCUTANEOUSLY ONCE A WEEKStart: 08-18-2023 End: 67-83-1348Bhfhwxmrfwp (Weight Loss) (Wegovy) 0.25 mg/0.5 mL pen injector Discontinued 0 .ROUTE .COMPLEX 4 August 18, 2023 11:08am August 19, 2023 9:48am INJECT 1 SYRINGE SUBCUTANEOUSLY ONCE A WEEKStart: 07-14-2023 End: 86-18-9454Bxfumouiegf (Weight Loss) (Wegovy) 0.25 mg/0.5 mL pen injector Discontinued 0.25 MG SUBCUT every week 2 0 July 14, 2023 12:00am August 18, 2023 12:08pm administer weeks 1 through 4 of therapyStart: 07-14-2023 End: 33-30-4696Otcjupmlzoc (Weight Loss) (Wegovy) 0.25 mg/0.5 mL pen injector Discontinued 0.25 MG SUBCUT every week 2 July 14, 2023 12:00am August 18, 2023 12:08pm administer weeks 1 through 4 of therapyStart: 07-14-2023 End: 62-37-5273Iytwkradaog (Weight Loss) (Wegovy) 0.25 mg/0.5 mL pen injector Discontinued 0.25 MG SUBCUT every week 2 July 13, 2023 11:00pm August 18, 2023 11:08am administer weeks 1 through 4 of therapySemaglutide (Weight Loss) (14 sources)Start: 09-12-2023 End: 66-77-7711qwhpvm 0.5 mg by subcutaneous injection every weekSemaglutide (Weight Loss) (Wegovy) 0.5 mg/0.5 mL pen injector Discontinued 0 .ROUTE .COMPLEX 4 0 September 12, 2023 7:11am October 18, 2023 12:43pm INJECT 0.5MG SUBCUTANEOUSLY EVERY WEEKStart: 09-12-2023 End: 55-42-7463kjmyeb 0.5 mg by subcutaneous injection every weekSemaglutide (Weight Loss) (Wegovy) 0.5 mg/0.5 mL pen injector Discontinued 0 .ROUTE .COMPLEX September 12, 2023 7:11am October 18, 2023 12:43pm INJECT 0.5MG SUBCUTANEOUSLY EVERY WEEKStart: 09-12-2023 End: 04-20-5693latspa 0.5 mg by subcutaneous injection every weekSemaglutide (Weight Loss) (Wegovy) 0.5 mg/0.5 mL pen injector Discontinued 0 .ROUTE .COMPLEX September 12, 2023 6:11am October 18, 2023 11:43am INJECT 0.5MG SUBCUTANEOUSLY EVERY WEEKStart: 08-19-2023 End: 18-29-9218Thhrebnwyys (Weight Loss) 0.5 mg/0.5 mL pen injector Discontinued 0.5 MG .ROUTE every week 2 2023 10:47am September 12, 2023 7:11am 0.5 mg every week;Start: 08-19-2023 End: 38-03-5641Sdsohfugdco (Weight Loss) 0.5 mg/0.5 mL pen injector Discontinued 0.5 MG .ROUTE every week 2 August 19, 2023 10:47am September 12, 2023 7:11am 0.5 mg every week;Start: 08-19-2023 End: 41-85-1320Ikixrsdjehi (Weight Loss) 0.5 mg/0.5 mL pen injector Discontinued 0.5 MG .ROUTE every week 2 August 19, 2023 9:47am September 12, 2023 6:11am 0.5 mg every week;sulfamethoxazole 800 mg / trimethoprim 160 mg oral tablet (7 sources)Dihydrofolate Reductase Inhibitor Antibacterial, Sulfonamide AntimicrobialStart: 03-06-2024 End: 57-58-0879brgj 1 tablet by mouth twice dailySulfamethoxazole-Trimethoprim (Bactrim Ds) 800-160 mg tablet Discontinued 1 TAB PO Twice daily 14 0March 06, 2024 1:00am March 20, 2024 4:05pmTirzepatide (Weight Loss) (7 sources)Start: 06-21-2023 End: 78-12-5987Csuvyihlwvu (Weight Loss) (Zepbound) 2.5 mg/0.5 mL pen injector Discontinued 2.5 MG SUBCUT every week 2 June 21, 2023 12:00am July 14, 2023 12:09pmStart: 06-21-2023 End: 72-43-2958Ipxuucrtymn (Weight Loss) (Zepbound) 2.5 mg/0.5 mL pen injector Discontinued 2.5 MG SUBCUT every week 2 June 21, 2023 12:00am July 14, 2023 12:09pmStart: 06-21-2023 End: 42-02-9105Rudrpaablqa (Weight Loss) (Zepbound) 2.5 mg/0.5 mL pen injector Discontinued 2.5 MG SUBCUT every week 2 June 20, 2023 11:00pm July 14, 2023 11:09amWegovy 1 MG/0.5ML solution auto-injector (2 sources) End: 39-94-7488eykcxc 1 mg by subcutaneous injection every weekWegovy 1 MG/0.5ML solution auto-injector INJECT 1MG (0.5ML) SUBCUTANEOUSLY ONCE EVERY WEEK 12/12/2024 Discontinued (Therapy completed)inject 1 mg by subcutaneous injection every weekWegovy 1 MG/0.5ML solution auto-injector INJECT 1MG (0.5ML) SUBCUTANEOUSLY ONCE EVERY WEEK Active Problems Active Problems Problem ClassificationProblemDateDocumented DateEpisodic/ChronicAbdominal pain (10 sources)Generalized abdominal pain; Translations: [Generalized abdominal pain]EpisodicAnxiety disorders (20 sources)Anxiety; Translations: [Other specified anxiety disorders]Onset: 12-07-2022 Resolved: 84-41-0924DzawjvrEmjhgwu tract disease (12 sources)Acute cholecystitis; Translations: [Acute cholecystitis]Onset: 941882-93-0888VcszjdvbRszrqjgq of urinary tract (14 sources)Calculus of kidney; Translations: [Kidney stone]Onset: 03-13-2024 EpisodicDeficiency and other anemia (3 sources)Anemia; Translations: [Anemia, unspecified]30-13-2931Whjdcrhw Esophageal disorders (10 sources)Gastroesophageal reflux disease; Translations: [Gastro-esophageal reflux disease without esophagitis]ChronicGastroduodenal ulcer (except hemorrhage) (1 source)Ulcer of duodenum; Translations: [Duodenal ulcer, unspecified as acute or chronic, without hemorrhage or perforation]87-48-2889HqorjbuQqmbdljnjcsgkrvv hemorrhage (20 sources)Hematochezia; Translations: [Melena]EpisodicGenitourinary symptoms and ill-defined conditions (20 sources)Dysuria; Translations: [Hematuria, unspecified]Onset: 12-31-2020 Resolved: 29-26-5645GqttqnppYclsorbv; including migraine (9 sources)Headache; Translations: [Headache]Onset: 446251-93-6853Wzlfifux Hemorrhoids (10 sources)Internal hemorrhoids; Translations: [Other hemorrhoids]Episodic Immunizations and screening for infectious disease (3 sources)Encounter for screening for human papillomavirus (HPV); Translations: [Encounter for immunization]Onset: 20-81-4841KbeeyqoqWhdl disorders (1 source)Depressive -54-2798OpzalffUwrnpyt (5 sources)Tinea unguium; Translations: [Onychomycosis]EpisodicNonmalignant breast conditions (1 source)Breast tenderness; Translations: [Mastodynia]85-90-9047WnxylufbCgpf wounds of extremities (1 source)Puncture wound without foreign body, right foot, initial encounter EpisodicOsteoarthritis (1 source)Bkbtcbsfc28-24-2614EvhwzoxBgmxv aftercare (2 sources)Post-discharge follow-up; Translations: [Encounter for follow-up examination after completed treatment for conditions other than malignant neoplasm]69-67-6837DcgarqelAvqtz bone disease and musculoskeletal deformities (7 sources)Cervical somatic dysfunction; Translations: [Segmental and somatic dysfunction of cervical region]80-90-1101MmsycwriTjobq gastrointestinal disorders (10 sources)Diarrhea; Translations: [Diarrhea, unspecified]EpisodicOther nervous system disorders (2 sources)Chronic pain; Translations: [Other chronic pain]Onset: 12-07-2022 Resolved: 541281-74-4162DawrsepEclod nervous system disorders (1 source)Other acute postprocedural pain; Translations: [Other acute postprocedural pain]Onset: 31-53-9164HrwaejdkZjuyr non-traumatic joint disorders (4 sources)Pain in right hip; Translations: [Pain in joint, pelvic region and thigh]Onset: 07-16-2021 Resolved: 36-47-6442StxuwvcmPyjke non-traumatic joint disorders (7 sources)Hip pain; Translations: [Pain in right hip]29-52-8619IerskwtaRrrxd nutritional; endocrine; and metabolic disorders (9 sources)Obesity; Translations: [Obesity, unspecified]Onset: 12-07-2022 13-31-3085SifwphtRsxqw nutritional; endocrine; and metabolic disorders (7 sources)Body mass index 30+ - obesity; Translations: [Obesity, unspecified] 48-23-5422BcxwrtmLixnb nutritional; endocrine; and metabolic disorders (7 sources)Body mass index 25-29 - overweight; Translations: [Overweight] 73-19-0407EtvbztpqMpaos nutritional; endocrine; and metabolic disorders (2 sources)Overweight; Translations: [Overweight]44-75-8687RyhytcrsFapsb screening for suspected conditions (not mental disorders or infectious disease) (12 sources)Encounter for screening mammogram for malignant neoplasm of breast; Translations: [Encounter for screening for malignant neoplasm of cervix]Onset: 93-04-3173AjawtivfLhdqn skin disorders (1 source)Localized swelling, mass and lump, neckEpisodicOther skin disorders (4 sources)Ingrowing nail; Translations: [Ingrowing nail]EpisodicOther skin disorders (3 sources)Bilateral ingrowing nail of toe of feet; Translations: [Ingrowing nail]95-38-1112NzuelwimLqeks upper respiratory infections (6 sources)Sinusitis; Translations: [Chronic sinusitis, unspecified]06-07-2024 ChronicOther upper respiratory infections (7 sources)Acute sinusitis, unspecified; Translations: [Acute bacterial pharyngitis]EpisodicResidual codes; unclassified (1 source)Family history of malignant neoplasm of digestive organs; Translations: [FAM HX MALIG NEOPLASM DIGESTIV ORGN]Onset: 62-35-9953Fqkkccxd Residual codes; unclassified (1 source)Pain, unspecified; Translations: [Pain, unspecified]Onset: 10-24-2024 EpisodicSprains and strains (2 sources)Sprain of joints and ligaments of unspecified parts of neck, initial encounter; Translations: [Sprain of unspecified parts of thorax, initial encounter]Onset: 40-99-4801FctzomtkVlcxseore-related disorders (1 source)Ljduhg80-86-0737KevhucpHsentjt on above:Added secondary to documentation in Social History.Unclassified (1 source)Post-opOnset: 11-26-2024 Past or Other Problems Problem ClassificationProblemDateDocumented DateEpisodic/ChronicDiseases of mouth; excluding dental (4 sources)Chronic sialadenitis; Translations: [Chronic sialoadenitis]Onset: 12-07-2022 Resolved: [id number] disorders (3 sources)Mood disordersOnset: 10-24-2024 Resolved: [id number] (1 source)Midline low back pain without sciatica, unspecified chronicity M54.50 Onset: 07-16-2021 Resolved: 39-58-7397Fxqitna tract infections (1 source)Urinary tract infection, site not specifiedOnset: 12-31-2020 Resolved: 03-42-2779Mtkenguu Results Test NameValueInterpretationReference RangeFacilityCBC WITH AUTO DIFFERENTIALon [id number] ABSOLUTE COUNT (10*3/UL) BY AUTOMATED COUNT0.0 10*3/uLNormal 0.0-0.2[facility] HospitalComment on above:Performed By: #### CBCA #### [facility] ([facility]) [address] [place] [address] VIRBASOPHILS RELATIVE PERCENT BY AUTOMATED COUNT0.4 %Normal [facility] CenterComment on above:Performed By: #### CBCA #### [facility] ([facility]) [address] [place] [address] VIRCELLAVISION DIFFERENTIAL TYPEAUTOMATED DIFFERENTIALNormal [facility] CenterComment on above:Performed By: #### CBCA #### [facility] ([facility]) [address] [place] [address] VIREosinophils (Bld) [#/Vol]0.3 10*3/uLNormal0.0-0.4[facility] CenterComment on above:Performed By: #### CBCA #### [facility] ([facility]) [address] [place] [address] VIREOSINOPHILS RELATIVE PERCENT BY AUTOMATED COUNT3.0 %Normal [facility] CenterComment on above:Performed By: #### CBCA #### [facility] ([facility]) [address] [place] [address] VIRErythrocyte distribution width (RBC) [Ratio]17.0 %High 11.5-15[facility] Medical CenterComment on above:Performed By: #### CBCA #### [facility] ([facility]) [address] [place] [address] VIRHematocrit (Bld) [Volume fraction]35.7 %Roeime86-23FvgKdfxbjSt. Luke'S Health – Baylor St. Luke'S Medical CenterComment on above:Performed By: #### CBCA #### [facility] ([facility]) [address] [place] [address] VIRHemoglobin (Bld) [Mass/Vol]12.2 g/mJIfzvij20.7-15.5PCleveland Clinic FoundationComment on above:Performed By: #### CBCA #### [facility] ([facility]) [address] [place] [address] VIRLYMPHOCYTES ABSOLUTE COUNT (10*3/UL) BY AUTOMATED COUNT3.3 10*3/uLNormal1.0-3.5PCleveland Clinic FoundationComschoolcraft memorial hospital on above:Performed By: #### CBCA #### [facility] ([facility]) [address] [place] [address] VIRLYMPHOCYTES RELATIVE PERCENT BY AUTOMATED COUNT30.1 %Normal [facility] CenterComment on above:Performed By: #### CBCA #### [facility] ([facility]) [address] [place] [address] VIRMCH (RBC) [Entitic mass]34.0 zzAsbgky02-38FfrWdcpjaSt. Luke'S Health – Baylor St. Luke'S Medical CenterComment on above:Performed By: #### CBCA #### [facility] ([facility]) [address] [place] [address] VIRMCHC (RBC) [Mass/Vol]34.1 g/nDGftgch31-55ZnnJljtweSt. Luke'S Health – Baylor St. Luke'S Medical CenterComment on above:Performed By: #### CBCA #### [facility] ([facility]) [address] [place] [address] VIRMCV (RBC) [Entitic vol]100 uHQjbime28-802PmdHsqcvq [facility]remont HospitalComment on above:Performed By: #### CBCA #### [facility] ([facility]) [address] [place] [address] VIRMONOCYTES ABSOLUTE COUNT (10*3/UL) BY AUTOMATED COUNT0.7 10*3/uLNormal0.0-0.9[facility] Medical CenterComschoolcraft memorial hospital on above:Performed By: #### CBCA #### [facility] ([facility]) [address] [place] [address] VIRMONOCYTES RELATIVE PERCENT BY AUTOMATED COUNT6.6 %Normal [facility] CenterComment on above:Performed By: #### CBCA #### [facility] ([facility]) [address] [place] [address] VIRNEUTROPHILS ABSOLUTE COUNT BY AUTOMATED COUNT6.6 10*3/uL Normal1.5-6.6[facility] Medical CenterComschoolcraft memorial hospital on above:Performed By: #### CBCA #### [facility] ([facility]) [address] [place] [address] VIRNEUTROPHILS RELATIVE PERCENT BY AUTOMATED COUNT59.9 %Normal [facility] CenterComment on above:Performed By: #### CBCA #### [facility] ([facility]) [address] [place] [address] VIRPlatelet mean volume (Bld) [Entitic vol]7.9 fLNormal7-12 [facility] CenterComment on above:Performed By: #### CBCA #### [facility] ([facility]) [address] [place] [address] VIRPlatelets (Bld) [#/Vol]445 10*3/vOWgceuz030-215MtqIpwqahAdena Regional Medical CenterComment on above:Performed By: #### CBCA #### [facility] ([facility]) [address] [place] [address] VIRRBC COUNT3.58 X10E12/LLow3.8-5.2[facility] Comment on above:Performed By: #### CBCA #### [facility] ([facility]) [address] [place] [address] VIRWBC (Bld) [#/Vol]11.0 10*3/uLNormal4-11[facility] Medical CenterComment on above:Performed By: #### CBCA #### [facility] ([facility]) [address] [place] [address] VIRCBC WITH AUTO DIFFERENTIALon 65-08-1688ZBXZEDZZB ABSOLUTE COUNT (10*3/UL) BY AUTOMATED COUNT0.0 10*3/uLNormal0.0-0.2PLima Memorial HospitalComment on above:Performed By: #### ACTIVITIES SPECIALIST #### [facility] ([facility]) [address] [place] [address] VIRBASOPHILS RELATIVE PERCENT BY AUTOMATED COUNT0.4 %Normal [facility], IncComment on above:Performed By: #### ACTIVITIES SPECIALIST #### [facility] ([facility]) [address] [place] [address] VIRCELLAVISION DIFFERENTIAL TYPEAUTOMATED DIFFERENTIALNormal [facility] HospitalComment on above:Performed By: #### ACTIVITIES SPECIALIST #### [facility] ([facility]) [address] [place] [address] VIREosinophils (Bld) [#/Vol]0.1 10*3/uLNormal0.0-0.4ProMet[facility] HospitalComment on above:Performed By: #### ACTIVITIES SPECIALIST #### [facility] ([facility]) [address] [place] [address] VIREOSINOPHILS RELATIVE PERCENT BY AUTOMATED COUNT1.0 %Normal [facility] HospitalComment on above:Performed By: #### ACTIVITIES SPECIALIST #### [facility] ([facility]) [address] [place] [address] VIRErythrocyte distribution width (RBC) [Ratio]16.2 %High 11.5-15Pro[facility] HospitalComment on above:Performed By: #### ACTIVITIES SPECIALIST #### [facility] ([facility]) [address] [place] [address] VIRHematocrit (Bld) [Volume fraction]29.1 %Rue85-36AbpTnyfcm [place] HospitalComment on above:Performed By: #### ACTIVITIES SPECIALIST #### [facility] ([facility]) [address] [place] [address] VIRHemoglobin (Bld) [Mass/Vol]9.8 g/dLLow11.7-15.5[facility] HospitalComment on above:Performed By: #### ACTIVITIES SPECIALIST #### [facility] ([facility]) [address] [place] [address] VIRLYMPHOCYTES ABSOLUTE COUNT (10*3/UL) BY AUTOMATED COUNT2.2 10*3/uLNormal1.0-3.5PTrumbull Memorial Hospital HospitalComment on above:Performed By: #### ACTIVITIES SPECIALIST #### [facility] ([facility]) [address] [place] [address] VIRLYMPHOCYTES RELATIVE PERCENT BY AUTOMATED COUNT20.4 %Normal [facility] HospitalComment on above:Performed By: #### ACTIVITIES SPECIALIST #### [facility] ([facility]) [address] [place] [address] VIRMCH (RBC) [Entitic mass]33.5 fqYzzhoc02-55CapXxyxaa [facility] HospitalComment on above:Performed By: #### ACTIVITIES SPECIALIST #### [facility] ([facility]) [address] [place] [address] VIRMCHC (RBC) [Mass/Vol]33.8 g/sEVjuymi04-79QvpJslrdv [facility] HospitalComment on above:Performed By: #### ACTIVITIES SPECIALIST #### [facility] ([facility]) [address] [place] [address] VIRMCV (RBC) [Entitic vol]99 aIDhxuxh70-578QeaLqsplh [facility] HospitalComment on above:Performed By: #### ACTIVITIES SPECIALIST #### [facility] ([facility]) [address] [place] [address] VIRMONOCYTES ABSOLUTE COUNT (10*3/UL) BY AUTOMATED COUNT0.7 10*3/uLNormal0.0-0.9[facility] HospitalComment on above:Performed By: #### ACTIVITIES SPECIALIST #### [facility] ([facility]) [address] [place] [address] VIRMONOCYTES RELATIVE PERCENT BY AUTOMATED COUNT6.9 %Normal [facility] HospitalComment on above:Performed By: #### ACTIVITIES SPECIALIST #### [facility] ([facility]) [address] [place] [address] VIRNEUTROPHILS ABSOLUTE COUNT BY AUTOMATED COUNT7.8 10*3/uLHigh 1.5-6.6[facility] HospitalComment on above:Performed By: #### ACTIVITIES SPECIALIST #### [facility] ([facility]) [address] [place] [address] VIRNEUTROPHILS RELATIVE PERCENT BY AUTOMATED COUNT71.3 %Normal ProMSt. John of God HospitalComment on above:Performed By: #### ACTIVITIES SPECIALIST #### [facility] ([facility]) [address] [place] [address] VIRPlatelet mean volume (Bld) [Entitic vol]7.4 fLNormal7-12 ProMAvita [facility] HospitalComment on above:Performed By: #### ACTIVITIES SPECIALIST #### [facility] ([facility]) [address] [place] [address] VIRPlatelets (Bld) [#/Vol]306 10*3/nHUoopwq821-443FatQczckp [place] HospitalComment on above:Performed By: #### ACTIVITIES SPECIALIST #### [facility] ([facility]) [address] [place] [address] VIRRBC COUNT2.94 X10E12/LLow3.8-5.2PTrumbull [facility] Hospital Comment on above:Performed By: #### ACTIVITIES SPECIALIST #### [facility] ([facility]) [address] [place] [address] VIRWBC (Bld) [#/Vol]10.9 10*3/uLNormal4-11ProRegency Hospital Cleveland EastComment on above:Performed By: #### ACTIVITIES SPECIALIST #### [facility] ([facility]) [address] [place] [address] VIRCOMPREHENSIVE METABOLIC PANELon 45-83-7747Tjmuufr [Mass/Vol] 3.6 g/dLNormal3.2-5.3PLima Memorial HospitalComment on above:Performed By: #### ACTIVITIES SPECIALIST #### [facility] ([facility]) [address] [place] [address] VIRALP [Catalytic activity/Vol]130 U/XXxkhzf86-299ChkXxkvku [place] HospitalComment on above:Performed By: #### ACTIVITIES SPECIALIST #### [facility] ([facility]) [address] [place] [address] VIRALT [Catalytic activity/Vol]84 U/LHigh<=31[facility] HospitalComment on above:Performed By: #### ACTIVITIES SPECIALIST #### [facility] ([facility]) [address] [place] [address] VIRAnion gap [Moles/Vol]7 mmol/LNormal5-15[facility] HospitalComment on above:Performed By: #### ACTIVITIES SPECIALIST #### [facility] ([facility]) [address] [place] [address] VIRAST [Catalytic activity/Vol]29 U/LNormal<=41[facility] HospitalComment on above:Performed By: #### ACTIVITIES SPECIALIST #### [facility] ([facility]) [address] [place] [address] VIRBilirubin [Mass/Vol]0.7 mg/dLNormal0.3-1.2[facility]MedOhio[facility] HospitalComment on above:Performed By: #### ACTIVITIES SPECIALIST #### [facility] ([facility]) [address] [place] [address] VIRCalcium [Mass/Vol]8.9 mg/dLNormal8.5-10.5[facility]MedOhio[facility] HospitalComment on above:Performed By: #### ACTIVITIES SPECIALIST #### [facility] ([facility]) [address] [place] [address] VIRChloride [Moles/Vol]106 mmol/QMkwtzm43-710NppAdnwlq [place] HospitalComment on above:Performed By: #### ACTIVITIES SPECIALIST #### [facility] ([facility]) [address] [place] [address] VIRCO2 [Moles/Vol]26 mmol/XGonzeq23-27LlzMghufc [facility] Comment on above:Performed By: #### ACTIVITIES SPECIALIST #### [facility] ([facility]) [address] [place] [address] VIRCreatinine [Mass/Vol]0.65 mg/dLNormal0.40-1.00[facility] HospitalComment on above:Result Comment: METHOD TRACEABLE TO IDMS STANDARDPerformed By: #### ACTIVITIES SPECIALIST #### [facility] ([facility]) [address] [place] [address] VIREGFR (CKD-EPI) NON-RACE DEPENDENT>^90Normal>=60[facility] HospitalComment on above:Result Comment: Reported eGFR is based on the CKD-EPI 2020 equation that does not use a race coefficient.Performed By: #### ACTIVITIES SPECIALIST #### [facility] ([facility]) [address] [place] [address] VIRGlucose [Mass/Vol]97 mg/tBRrykon96-06IbuGsmfog [place] HospitalComment on above:Performed By: #### ACTIVITIES SPECIALIST #### [facility] ([facility]) [address] [place] [address] VIRPotassium [Moles/Vol]3.9 mmol/LNormal3.5-5.0[facility] HospitalComment on above:Performed By: #### ACTIVITIES SPECIALIST #### [facility] ([facility]) [address] [place] [address] VIRProtein [Mass/Vol]6.1 g/dLNormal6.0-8.0[facility] HospitalComment on above:Performed By: #### ACTIVITIES SPECIALIST #### [facility] ([facility]) [address] [place] [address] VIRSodium [Moles/Vol]139 mmol/ZGabtsz850-134PgfMktfcx [facility] HospitalComment on above:Performed By: #### ACTIVITIES SPECIALIST #### [facility] ([facility]) [address] [place] [address] VIRUrea nitrogen [Mass/Vol]9 mg/dLNormal5-23[facility] HospitalComment on above:Performed By: #### ACTIVITIES SPECIALIST #### [facility] ([facility]) [address] [place] [address] VIRLIPASEon 94-70-7912Izblla [Catalytic activity/Vol]82 U/L Ymihxh29-28KvfOedlzu [place] HospitalComment on above:Performed By: #### ACTIVITIES SPECIALIST #### [facility] ([facility]) [address] [place] [address] VIRCBC WITH AUTO DIFFERENTIALon 12-41-7130IWAHCMETM ABSOLUTE COUNT (10*3/UL) BY AUTOMATED COUNT0.1 10*3/uLNormal0.0-0.2[facility] HospitalComment on above:Performed By: #### BMP #### [facility] ([facility]) [address] [place] [address] VIRBASOPHILS RELATIVE PERCENT BY AUTOMATED COUNT0.7 %Normal [facility] HospitalComment on above:Performed By: #### BMP #### [facility] ([facility]) [address] [place] [address] VIRCELLAVISION DIFFERENTIAL TYPEAUTOMATED DIFFERENTIALNormal [facility] HospitalComment on above:Performed By: #### BMP #### [facility] ([facility]) [address] [place] [address] VIREosinophils (Bld) [#/Vol]0.2 10*3/uLNormal0.0-0.4Pro[facility] HospitalComment on above:Performed By: #### BMP #### [facility] ([facility]) [address] [place] [address] VIREOSINOPHILS RELATIVE PERCENT BY AUTOMATED COUNT2.6 %Normal [facility] HospitalComment on above:Performed By: #### BMP #### [facility] ([facility]) [address] [place] [address] VIRErythrocyte distribution width (RBC) [Ratio]16.3 %High 11.5-15Pro[facility] HospitalComment on above:Performed By: #### BMP #### [facility] ([facility]) [address] [place] [address] VIRHematocrit (Bld) [Volume fraction]32.7 %Lyz57-42SliElethp [facility] HospitalComment on above:Performed By: #### BMP #### [facility] ([facility]) [address] [place] [address] VIRHemoglobin (Bld) [Mass/Vol]11.3 g/dLLow11.7-15.5[facility] HospitalComment on above:Performed By: #### BMP #### [facility] ([facility]) [address] [place] [address] VIRLYMPHOCYTES ABSOLUTE COUNT (10*3/UL) BY AUTOMATED COUNT1.2 10*3/uLNormal1.0-3.5[facility]Med[facility] HospitalComment on above:Performed By: #### BMP #### [facility] ([facility]) [address] [place] [address] VIRLYMPHOCYTES RELATIVE PERCENT BY AUTOMATED COUNT12.8 %Normal [facility] HospitalComment on above:Performed By: #### BMP #### [facility] ([facility]) [address] [place] [address] VIRMCH (RBC) [Entitic mass]34.2 rdGzpk78-80JusDgagpy [facility] HospitalComment on above:Performed By: #### BMP #### [facility] ([facility]) [address] [place] [address] VIRMCHC (RBC) [Mass/Vol]34.6 g/lPLhdqgf73-39SckSsizep [facility] HospitalComment on above:Performed By: #### BMP #### [facility] ([facility]) [address] [place] [address] VIRMCV (RBC) [Entitic vol]99 dRSuwhbm30-819AqlCsxuyj [facility] HospitalComment on above:Performed By: #### BMP #### [facility] ([facility]) [address] [place] [address] VIRMONOCYTES ABSOLUTE COUNT (10*3/UL) BY AUTOMATED COUNT0.7 10*3/uLNormal0.0-0.9Pro[facility] HospitalComment on above:Performed By: #### BMP #### [facility] ([facility]) [address] [place] [address] VIRMONOCYTES RELATIVE PERCENT BY AUTOMATED COUNT7.1 %Normal [facility] HospitalComment on above:Performed By: #### BMP #### [facility] ([facility]) [address] [place] [address] VIRNEUTROPHILS ABSOLUTE COUNT BY AUTOMATED COUNT7.4 10*3/uLHigh 1.5-6.6Pro[facility] HospitalComment on above:Performed By: #### BMP #### [facility] ([facility]) [address] [place] [address] VIRNEUTROPHILS RELATIVE PERCENT BY AUTOMATED COUNT76.8 %Normal [facility] HospitalComment on above:Performed By: #### BMP #### [facility] ([facility]) [address] [place] [address] VIRPlatelet mean volume (Bld) [Entitic vol]7.1 fLNormal7-12 [facility] HospitalComment on above:Performed By: #### BMP #### [facility] ([facility]) [address] [place] [address] VIRPlatelets (Bld) [#/Vol]314 10*3/nVCmputm453-413YknGvbuau [place] HospitalComment on above:Performed By: #### BMP #### [facility] ([facility]) [address] [place] [address] VIRRBC COUNT3.31 X10E12/LLow3.8-5.2P[facility] Comment on above:Performed By: #### BMP #### [facility] ([facility]) [address] [place] [address] VIRWBC (Bld) [#/Vol]9.6 10*3/uLNormal4-11[facility] HospitalComment on above:Performed By: #### BMP #### [facility] ([facility]) [address] [place] [address] VIRCOMPREHENSIVE METABOLIC PANELon 77-62-8722Kxgjjcc [Mass/Vol] 3.6 g/dLNormal3.2-5.3[facility] HospitalComment on above:Performed By: #### BMP #### [facility] ([facility]) [address] [place] [address] VIRALP [Catalytic activity/Vol]151 U/TGwug81-412FixYhhxzg [place] HospitalComment on above:Performed By: #### BMP #### [facility] ([facility]) [address] [place] [address] VIRALT [Catalytic activity/Vol]126 U/LHigh<=31[facility] HospitalComment on above:Performed By: #### BMP #### [facility] ([facility]) [address] [place] [address] VIRAnion gap [Moles/Vol]8 mmol/LNormal5-15[facility] HospitalComment on above:Performed By: #### BMP #### [facility] ([facility]) [address] [place] [address] VIRAST [Catalytic activity/Vol]61 U/LHigh<=41[facility] HospitalComment on above:Performed By: #### BMP #### [facility] ([facility]) [address] [place] [address] VIRBilirubin [Mass/Vol]1.0 mg/dLNormal0.3-1.2[facility] HospitalComment on above:Performed By: #### BMP #### [facility] ([facility]) [address] [place] [address] VIRCalcium [Mass/Vol]8.9 mg/dLNormal8.5-10.5PLima Memorial HospitalComment on above:Performed By: #### BMP #### [facility] ([facility]) [address] [address] [place] [address] VIRChloride [Moles/Vol]107 mmol/MLxzbtd13-371FcoZckxnh [place] HospitalComment on above:Performed By: #### BMP #### [facility] ([facility]) [address] [place] [address] VIRCO2 [Moles/Vol]27 mmol/JQhefcp14-53IziIcwjsp [facility] Comment on above:Performed By: #### BMP #### [facility] ([facility]) [address] [place] [address] VIRCreatinine [Mass/Vol]0.74 mg/dLNormal0.40-1.00ProRegency Hospital Cleveland EastComment on above:Result Comment: METHOD TRACEABLE TO IDMS STANDARDPerformed By: #### BMP #### [facility] ([facility]) [address] [place] [address] VIREGFR (CKD-EPI) NON-RACE DEPENDENT>^90Normal>=60ProRegency Hospital Cleveland EastComment on above:Result Comment: Reported eGFR is based on the CKD-EPI 2020 equation that does not use a race coefficient.Performed By: #### BMP #### [facility] ([facility]) [address] [place] [address] VIRGlucose [Mass/Vol]70 mg/lWFnxafr16-62VjlYrnlqj [place] HospitalComment on above:Performed By: #### BMP #### [facility] ([facility]) [address] [place] [address] VIRPotassium [Moles/Vol]3.8 mmol/LNormal3.5-5.0ProRegency Hospital Cleveland EastComment on above:Performed By: #### BMP #### [facility] ([facility]) [address] [place] [address] VIRProtein [Mass/Vol]6.3 g/dLNormal6.0-8.0ProRegency Hospital Cleveland EastComment on above:Performed By: #### BMP #### [facility] ([facility]) [address] [place] [address] VIRSodium [Moles/Vol]142 mmol/FEunldz529-594HztZihfnh [place] HospitalComment on above:Performed By: #### BMP #### [facility] ([facility]) [address] [place] [address] VIRUrea nitrogen [Mass/Vol]7 mg/dLNormal5-23ProRegency Hospital Cleveland EastComment on above:Performed By: #### BMP #### [facility] ([facility]) [address] [place] [address] VIRFL ERCP BILIARY DUCTon [id number] ERCP BILIARY DUCTFL ERCP BILIARY DUCT FL ERCP BILIARY DUCT INDICATION: Intraoperative imaging for localization of treatment planning. COMPARISON: None FINDINGS: Fluoro Time: 23 seconds Reference Air Kerma: 4.29 mGy Number of images: 5 Images of procedure in progress demonstrate localization for ERCP.. IMPRESSION: Intraoperative imaging for the purposes of treatment planning and localization. Refer to final operative report for complete details. Finalized by Rasheeda Uriostegui MD on 10/25/2024 2:20 PMNormalProRegency Hospital Cleveland EastLIPASEon 25-30-3753Cfyuqw [Catalytic activity/Vol]1217 U/OMxhw30-35 ProMedicAshtabula County Medical CenterComment on above:Performed By: #### BMP #### [facility] ([facility]) [address] [place] [address] VIRMR MRCP WITH MRI ABD W WO CONTon [id number] MRCP WITH MRI ABD W WO CONTMR MRCP WITH MRI ABD W WO CONT MRI ABDOMEN WITHOUT AND WITH CONTRAST AND MRCP HISTORY: Choledocholithiasis COMPARISON: CT abdomen/pelvis 10/23/2024, abdominal ultrasound 10/23/2024, HIDA scan 10/24/2024 TECHNIQUE: Multiplanar multisequence MR imaging of the abdomen performed prior to and following theuncomplicated intravenous administration of 15 mL ProHance. 3D reformatted images obtained and reviewed for evaluation [...] bowel are of normal caliber. IMPRESSION: * Biliary ductal dilatation with the [...] obstruction recommend further assessment with ERCP. * Findings suggestive of cholecystitis, with numerous stones in the gallbladder, distention of the gallbladder, and small amount of pericholecystic fluid. * Acute pancreatitis with abnormal inflammation of the pancreatic body and tail and peripancreatic fluid. Finalized by Alli Mallory MD on 10/25/2024 2:39 AMNormalProRegency Hospital Cleveland EastBASI METABOLIC PANELon 38-57-1145Vgyhb gap [Moles/Vol]6 mmol/LNormal 5-15ProMediUniversity Hospitals Cleveland Medical CenterComment on above:Performed By: #### BMP #### [facility] ([facility]) [address] [place] [address] VIRCalcium [Mass/Vol]8.4 mg/dLLow8.5-10.5Pro[facility] HospitalComment on above:Performed By: #### BMP #### [facility] ([facility]) [address] [place] [address] VIRChloride [Moles/Vol]107 mmol/XYxpqxg27-309UbgAaysjx [place] HospitalComment on above:Performed By: #### BMP #### [facility] ([facility]) [address] [place] [address] VIRCO2 [Moles/Vol]27 mmol/OUdield90-71HwwOqugge [facility] Comment on above:Performed By: #### BMP #### [facility] ([facility]) [address] [place] [address] VIRCreatinine [Mass/Vol]0.76 mg/dLNormal0.40-1.00ProMetro[facility] HospitalComment on above:Result Comment: METHOD TRACEABLE TO IDMS STANDARDPerformed By: #### BMP #### [facility] ([facility]) [address] [place] [address] VIREGFR (CKD-EPI) NON-RACE DEPENDENT>^90Normal>=60ProMetro[facility] HospitalComment on above:Result Comment: Reported eGFR is based on the CKD-EPI 2020 equation that does not use a race coefficient.Performed By: #### BMP #### [facility] ([facility]) [address] [place] [address] VIRGlucose [Mass/Vol]90 mg/pHBvnwrh41-59CusThrdnh [place] HospitalComment on above:Performed By: #### BMP #### [facility] ([facility]) [address] [place] [address] VIRPotassium [Moles/Vol]3.7 mmol/LNormal3.5-5.0ProOhiohealth Nelsonville Health Centerca [facility] HospitalComment on above:Performed By: #### BMP #### [facility] ([facility]) [address] [place] [address] VIRSodium [Moles/Vol]140 mmol/VBoemtl288-218IflDqhwtt [facility] HospitalComment on above:Performed By: #### BMP #### [facility] ([facility]) [address] [place] [address] VIRUrea nitrogen [Mass/Vol]6 mg/dLNormal5-23Pro[facility] HospitalComment on above:Performed By: #### BMP #### [facility] ([facility]) [address] [place] [address] VIRCBC (NO DIFF)on 27-88-5333Exkzmuhcwgb distribution width (RBC) [Ratio]16.6 %High11.5-15ProMedica [facility]eda HospitalComment on above: Performed By: #### CBC #### [facility] ([facility]) [address] [place] [address] VIRHematocrit (Bld) [Volume fraction]32.0 %Lrb65-96GuoTzqych Acstaneda HospitalComment on above:Performed By: #### CBC #### [facility] ([facility]) [address] [place] [address] VIRHemoglobin (Bld) [Mass/Vol]10.9 g/dLLow11.7-15.5ProMedica [facility] HospitalComment on above:Performed By: #### CBC #### [facility] ([facility]) [address] [place] [address] VIRMCH (RBC) [Entitic mass]33.9 ahOyksnp86-77ShkFefsgu [facility] HospitalComment on above:Performed By: #### CBC #### [facility] ([facility]) [address] [place] [address] VIRMCHC (RBC) [Mass/Vol]34.1 g/lOJgdnju38-31ZppFjncum [facility] HospitalComment on above:Performed By: #### CBC #### [facility] ([facility]) [address] [place] [address] VIRMCV (RBC) [Entitic vol]99 kHPwnjch42-781VkgXjqyzq [facility] HospitalComment on above:Performed By: #### CBC #### [facility] ([facility]) [address] [place] [address] VIRPlatelet mean volume (Bld) [Entitic vol]7.1 fLNormal7-12 ProMAvita [facility] HospitalComment on above:Performed By: #### CBC #### [facility] ([facility]) [address] [place] [address] VIRPlatelets (Bld) [#/Vol]311 10*3/tKGpanbd487-709RwmKujjwi [place] HospitalComment on above:Performed By: #### CBC #### [facility] ([facility]) [address] [place] [address] VIRRBC COUNT3.22 X10E12/LLow3.8-5.2[facility] Comment on above:Performed By: #### CBC #### [facility] ([facility]) [address] [place] [address] VIRWBC (Bld) [#/Vol]5.6 10*3/uLNormal4-11ProOhiohealth Nelson[facility] Health Centerca [facility] HospitalComment on above:Performed By: #### CBC #### [facility] ([facility]) [address] [place] [address] VIRFERRITINon 75-11-0194Igsvnyzm [Mass/Vol]76 ng/zJGdrbjg00-716 ProMA[facility] HospitalComment on above:Performed By: #### BMP #### [facility] ([facility]) [address] [place] [address] VIRFOLATEon 88-46-9002ERLMZ ACID7.6 ng/mLNormal>5.8ProOhiohealth Nelson[facility] Health Centerca [facility] HospitalComment on above:Performed By: #### BMP #### [facility] ([facility]) [address] [place] [address] VIRIRON AND TIBCon 07-49-1630Knkn [Mass/Vol]115 ug/dLNormal 50-170Pro[facility] HospitalComment on above:Performed By: #### FEPR #### [facility] ([facility]) [address] [place] [address] VIRIRON UKWQVIH512 ug/zKHkaxif746-035YyqBrunjkCleveland Clinic [facility] on above:Performed By: #### FEPR #### [facility] ([facility]) [address] [place] [address] VIRIRON CAMSCNDVYC97 % IGTLLTQMNEMmlizb83-09UhrZoaqyb [place] HospitalComment on above:Performed By: #### FEPR #### [facility] ([facility]) [address] [place] [address] VIRTransferrin [Mass/Vol]196 mg/kHPlzlbv850-409ZxoFdroan [place] HospitalComment on above:Performed By: #### FEPR #### [facility] ([facility]) [address] [place] [address] VIRLIPASEon 25-10-9682Jldwke [Catalytic activity/Vol]28 U/L Kuiayk09-93AuuIltgbx [place] HospitalComment on above:Performed By: #### BMP #### [facility] ([facility]) [address] [place] [address] VIRLIVER PANELon 29-11-2244Dmgtnxd [Mass/Vol]3.4 g/dLNormal 3.2-5.3ProMedOhioHealth [facility] HospitalComment on above:Performed By: #### LIVR #### [facility] ([facility]) [address] [place] [address] VIRALP [Catalytic activity/Vol]150 U/UEzxq71-509QwwWcdcol [place] HospitalComment on above:Performed By: #### LIVR #### [facility] ([facility]) [address] [place] [address] VIRALT [Catalytic activity/Vol]184 U/LHigh<=31ProMedOhio[facility] HospitalComment on above:Performed By: #### LIVR #### [facility] ([facility]) [address] [place] [address] VIRAST [Catalytic activity/Vol]160 U/LHigh<=41[facility] HospitalComment on above:Performed By: #### LIVR #### [facility] ([facility]) [address] [place] [address] VIRBilirubin [Mass/Vol]0.9 mg/dLNormal0.3-1.2[facility] HospitalComment on above:Performed By: #### LIVR #### [facility] ([facility]) [address] [place] [address] VIRBilirubin.indirect [Mass/Vol]0.5 mg/dLHigh<=0.4ProOhiohealth [facility] Centerca [facility] HospitalComment on above:Performed By: #### LIVR #### [facility] ([facility]) [address] [place] [address] VIRProtein [Mass/Vol]5.9 g/dLLow6.0-8.0[facility] HospitalComment on above:Performed By: #### LIVR #### [facility] ([facility]) [address] [place] [address] VIRNM HEPATOBILIARY SYS IMAGING W PHARMACOLOGIC AGENTon 11-67-7035GM HEPATOBILIARY SYS IMAGING W PHARMACOLOGIC AGENTNM HEPATOBILIARY SYS IMAGING W PHARMACOLOGIC AGENT NM HEPATOBILIARY SYS IMAGING W PHARMACOLOGIC AGENT: [...] by Alirio Barlow MD on 10/24/2024 2:06 PMNormalProMedica Middleburg HospitalPREGNANCY, URINEon 38-19-4863Wcxm HCG ( test) Ql (U)Negative NormalNegativeProMetrohealth [facility] HospitalComment on above:Performed By: #### UPREG #### [facility] ([facility]) [address] [place] [address] VIRPROTIME AND INRon 59-30-7941XHE5.7Dzepuj8.9-1.2ProMedOhioHealth [facility] HospitalComment on above:Performed By: #### PINR #### [facility] ([facility]) [address] [place] [address] VIRPT Coag (PPP) [Time]11.1 sNormal9.8-13.2PTrumbull Memorial Hospital HospitalComment on above:Performed By: #### PINR #### [facility] ([facility]) [address] [place] [address] VIRVITAMIN B12on 84-96-4288Opgubhldy (Vitamin B12) [Mass/Vol] 147 pg/hCGwl110-019PydJwcjfi [place] HospitalComment on above:Performed By: #### BMP #### [facility] ([facility]) [address] [place] [address] VIRBASIC METABOLIC PANELon 03-42-0020Uqkfk gap [Moles/Vol]4 mmol/LLow5-15Pro[facility] HospitalComment on above:Performed By: #### BMP #### [facility] ([facility]) [address] [place] [address] VIRCalcium [Mass/Vol]8.8 mg/dLNormal8.5-10.5PTrumbull Memorial Hospital HospitalComment on above:Performed By: #### BMP #### [facility] ([facility]) [address] [place] [address] VIRChloride [Moles/Vol]107 mmol/IJlvmvo84-616MphDecsrf [place] HospitalComment on above:Performed By: #### BMP #### [facility] ([facility]) [address] [place] [address] VIRCO2 [Moles/Vol]29 mmol/SEqzirk23-71BucZigqnd [facility] Comment on above:Performed By: #### BMP #### [facility] ([facility]) [address] [place] [address] VIRCreatinine [Mass/Vol]0.74 mg/dLNormal0.40-1.00ProRegency Hospital Cleveland EastComment on above:Result Comment: METHOD TRACEABLE TO IDMS STANDARDPerformed By: #### BMP #### [facility] ([facility]) [address] [place] [address] VIREGFR (CKD-EPI) NON-RACE DEPENDENT>^90Normal>=60ProRegency Hospital Cleveland EastComment on above:Result Comment: Reported eGFR is based on the CKD-EPI 2020 equation that does not use a race coefficient.Performed By: #### BMP #### [facility] ([facility]) [address] [place] [address] VIRPerformed By: #### ACTIVITIES SPECIALIST #### [facility] ([facility]) [address] [place] [address] VIRGlucose [Mass/Vol]89 mg/uRWthbve98-22AyuRkhdox [place] HospitalComment on above:Performed By: #### BMP #### [facility] ([facility]) [address] [place] [address] VIRPotassium [Moles/Vol]3.7 mmol/LNormal3.5-5.0ProReg[facility] Hospital [facility] EastComment on above:Performed By: #### BMP #### [facility] ([facility]) [address] [place] [address] VIRSodium [Moles/Vol]140 mmol/BIexhsz308-637GjhOtdirt [facility] HospitalComment on above:Performed By: #### BMP #### [facility] ([facility]) [address] [place] [address] VIRUrea nitrogen [Mass/Vol]6 mg/dLNormal5-23[facility] HospitalComment on above:Performed By: #### BMP #### [facility] ([facility]) [address] [place] [address] VIRCBC (NO DIFF)on 35-39-7640Qgohomybydp distribution width (RBC) [Ratio]16.6 %High11.5-15Pro[facility] HospitalComment on above: Performed By: #### CBC #### [facility] ([facility]) [address] [place] [address] VIRHematocrit (Bld) [Volume fraction]33.4 %Fvp59-04UdzPntpat [facility] HospitalComment on above:Performed By: #### CBC #### [facility] ([facility]) [address] [place] [address] VIRHemoglobin (Bld) [Mass/Vol]10.9 g/dLLow11.7-15.5[facility] HospitalComment on above:Performed By: #### CBC #### [facility] ([facility]) [address] [place] [address] VIRMCH (RBC) [Entitic mass]32.8 mgXhkfrv58-15FltKgtwky [facility] HospitalComment on above:Performed By: #### CBC #### [facility] ([facility]) [address] [place] [address] VIRMCHC (RBC) [Mass/Vol]32.8 g/zKOcsolt02-54WfwMesitg [facility] HospitalComment on above:Performed By: #### CBC #### [facility] ([facility]) [address] [place] [address] VIRMCV (RBC) [Entitic vol]100 mSCqwttn65-292ZbkDaodwg [place] HospitalComment on above:Performed By: #### CBC #### [facility] ([facility]) [address] [place] [address] VIRPlatelet mean volume (Bld) [Entitic vol]7.3 fLNormal7-12 [facility] HospitalComment on above:Performed By: #### CBC #### [facility] ([facility]) [address] [place] [address] VIRPlatelets (Bld) [#/Vol]310 10*3/nQHouqhl400-505VjdFalkiy [place] HospitalComment on above:Performed By: #### CBC #### [facility] ([facility]) [address] [place] [address] VIRRBC COUNT3.33 X10E12/LLow3.8-5.2PL[facility] Comment on above:Performed By: #### CBC #### [facility] ([facility]) [address] [place] [address] VIRWBC (Bld) [#/Vol]6.0 10*3/uLNormal4-11ProReg[facility] Hospital [facility] EastComment on above:Performed By: #### CBC #### [facility] ([facility]) [address] [place] [address] VIRCREATININE, SERUMon 80-47-4416Tppzccgqcb [Mass/Vol]0.78 mg/dLNormal0.40-1.00Pro[facility] HospitalComment on above:Result Comment: METHOD TRACEABLE TO IDMS STANDARDPerformed By: #### ACTIVITIES SPECIALIST #### [facility] ([facility]) [address] [place] [address] VIRLIVER PANELon 68-65-7021Ofnquol [Mass/Vol]3.5 g/dLNormal 3.2-5.3PTrumbull Memorial Hospital HospitalComment on above:Performed By: #### LIVR #### [facility] ([facility]) [address] [place] [address] VIRALP [Catalytic activity/Vol]158 U/TSjas30-841VhqTtquku [facility] HospitalComment on above:Performed By: #### LIVR #### [facility] ([facility]) [address] [place] [address] VIRALT [Catalytic activity/Vol]228 U/LHigh<=31Pro[facility] HospitalComment on above:Performed By: #### LIVR #### [facility] ([facility]) [address] [place] [address] VIRAST [Catalytic activity/Vol]232 U/LHigh<=41[facility] HospitalComment on above:Performed By: #### LIVR #### [facility] ([facility]) [address] [place] [address] VIRBilirubin [Mass/Vol]0.6 mg/dLNormal0.3-1.2[facility] HospitalComment on above:Performed By: #### LIVR #### [facility] ([facility]) [address] [place] [address] VIRBilirubin.indirect [Mass/Vol]0.2 mg/dLNormal<=0.4ProOhiohealth Nelsonville Health Centerca [facility] HospitalComment on above:Performed By: #### LIVR #### [facility] ([facility]) [address] [place] [address] VIRProtein [Mass/Vol]6.3 g/dLNormal6.0-8.0ProMedica Castaneda HospitalComment on above:Performed By: #### LIVR #### [facility] ([facility]) [address] [place] [address] VIRNo Panel InformationOrdered By: Elayne Joe on 06-07-2024 Quick Strep (POC)[facility] CenterAmbulatory Visit Summaryon [id number] Visit SummaryAmbulatory Visit Summary GENESIS CHILDERS :1980 Visit Date:03/23/2024 Ambulatory Visit Instructions Your [...] ANTHONY STILL PA-C Where: [facility] [address] [place] [address] [place] [address]- You Need to Schedule the Following Appointments Follow Up with ANTHONY STILL PA-C, URL When: In 1 month [facility] [address] [facility] [place] [address] Medications What How Much When Instructions New ketorolac (ketorolac 10 mg Tab) 1 Tablets By Mouth Every 6 hours as needed for for pain Duration: 5 Days do not take mobic/ meloxicam same day as this medication. Pickup at [facility] New tamsulosin (Flomax 0.4 mg Cap) 1 Capsules By Mouth Every day Pickup at [facility] Unchanged busPIRone (busPIRone 15 mg Tab) 30 Milligram By Mouth Once a day (in the evening) Contactprescribing physician if questions or concerns Unchanged fluoxetine (FLUoxetine 10 mg Cap) By Mouth Contact prescribing physician if questions or concerns Unchanged meloxicam (meloxicam 15 mg Tab) 1 Tablets Contact prescribing physician if questions or concerns Pharmacy Information [facility]: [address] [place], [place] [id number] [phone] Allergies Latex (Skin irritation, Swelling) richard (Anaphylaxis) Problems Ongoing - Any problem that [...] these instructions at home: Medicines ??? Take lyfo-ogk-cghqjpn and prescription medicines only as told by your doctor. ??? Ask your docto (more content not included)...[facility] Urology Office/Clinic Noteon [id number] Office/Clinic NoteUrology Office/Clinic Note Chief Complaint ureteral stone HPI Staff 43yr old female pt referred by Dr. Swenson for ER f/u - stones. CT w/o 03/13/24 showed punctate calcification L UVJ with minimal-mild hydroureteronephrosis. Urine culture was negative. ER gave 5d [...] another few weeks. If sx persist, may needto repeat CT vs IVP. Call or ER in meantime if sx worsen. Ordered: E&M of New Patient Moderate 45-59 Min 22705 Orders: ketorolac, 10 mg = 1 tab(s), Oral, q6hr, PRN for pain, do not take mobic/meloxicam same day as thismedication., X 5 day(s), # 12 tab(s), Refills(s) 0, Pharmacy: [facility], 167, cm, 03/23/24 9:30:00 EST, Height/Length Dosing, 78.5, kg, 03/23/24 9:30:... tamsulosin, 0.4 mg = 1 cap(s), Oral, Daily, # 30 cap(s), Refills(s) 0, Pharmacy: [facility], 167, cm, 03/23/24 9:30:00 [...] Urnls Dip Stick Auto w/o Microscopy POC 48699 Follow-up With When Contact Information CHEKO RIVAS, ANTHONY Zaragoza, URL In 1 month [address] [place] [address] Additional Instructions: Patient Education Kidney Stones, Ygyp-oi-Zsru Problem List/Past Medical History Ongoing Anemia Arthritis [...] 1 tab(s) Allergies Latex (Skin irritation, Swelling) richard (Anaphylaxis) Social History Alcohol Current. Liquor. 1-2 times per month., 03/23/2024 Substance Abuse Never., 03/23/2024 Tobacco 5-9 cigarettes (between 1/4 to 1/2 pack)/day in last 30 days Tobacco Use:. Never Smokeless Tobacco Use:. Cigarettes, 03/23/2024 Family History Colorectal cancer: Grandparent. Kidney stone: Mother and Grandparent. Immunizations Vaccine Date Status diphtheria/pertussis, acel/tetanus adult 12/27/2021 Recorded influenza virus vaccine, inactivated 12/17/2021 Recorded SARS-CoV-2 (COVID-19) mRNA-1273 vaccine 08/25/2021 Recorded SARS-CoV-2 (COVID-19) mRNA-1273 vaccine 01/06/2021 Recorded SARS-CoV-2 (COVID-19) mRNA-1273 vaccine 03/10/2020 Recorded SARS-CoV-2 (COVID-19) mRNA-1273 vaccine 02/11/2020 Recorded influenza virus vaccine, inactivated 12/14/2019 Recorded influenza virus vaccine, H1N1, live 12/03/2008 Recorded Lab Results Ambulatory Point of Care Results Bilirubin Urine Dipstick: Negative (03/23/24 (more content not included)... [facility] SouthwoodsComment on above:Result Comment: Electronically Signed By: ANTHONY STILL PA-C\Date and Time Signed: 03/23/2510:28 ESTCT ABDOMEN PELVIS WO IV CONTRASTon 04-07-2959VS ABDOMEN PELVIS WO IV CONTRASTCT ABDOMEN PELVIS WO IV CONTRAST 03/13/2024 8:32 [...] The urinary bladder is entirely decompressed. Mild hydroureteronephrosis. Questionable mild peripancreatic edema. Gallbladder is normal. The small bowel and colon are without evidence of obstruction or acute inflammatory change. No free fluid or free air. No acute osseous abnormalities. IMPRESSION: Punctate calcifications in the region of the left ureterovesicular junction with associated minimal hydroureteronephrosis. Questionable mild peripancreatic inflammatory change. Correlate with lipase levels. Electronically signed: Gordy Esposito MD.[facility] EDPROVon 05-40-6324WKSSVQLxlvhoa of Present Illness Chief Complaint Patient presents with Blood in Urine Flank Pain PT WAS SEEN AT HER PCP URINE DONE AND WAS WAITING ON CT SCAN. Initial evaluation completed by Dr. Padilla at 8:23 am. Genesis Childers is a 43 y/o female presenting to [...] include frequency. Associated symptoms include flank pain. Concepcion Coma Scale Score: 15 History History reviewed. [...] Heart Rate Resp BP 03/13/24 0802 03/13/24 0803/13/24 0803/13/24807 36.5 ???C (97.7 ???F) 88 20 [...] of 03/13/24 1001 Nephrolithiasis Medical Decision Making Ewa Reis, documented on behalf of Dr. Padilla. Chief [...] the left ureterovesicular junction with associated minimal hydroureteronephrosis. Questionable mild peripancreatic inflammatory change. Correlate with lipase levels. Electronically signed: Gordy Esposito MD. RESULTS Labs: Labs Reviewed POCT URINALYSIS DIPSTICK Result [...] the left ureterovesicular junction with associated minimal hydroureteronephrosis. Questionable mild peripancreatic inflammatory change. Correlate with lipase levels. Electronically signed: Gordy Esposito MD. NURSING NOTES AND VITALS REVIEWED The nursing notes within the ED encounter and vital signs as below have been reviewed. BP 128/74 Pulse 79 Temp 36.5 ???C (97.7 ???F) Resp 14 Ht 1.676 m (5' 6 ) Wt 78 kg (172 lb) SpO2 100% BMI 27.76 kg/m??? PROGRESS NOTES The plan has been discussed with the patient regarding the diagnosis and prognosis. All questions have been answered at this time and they (more content not included)...NormalAdams County HospitalLaboratory - Chemistry and Chemistry - challengeon [id number] Ql (U)NegativeUniversity Hospitals Beachwood Medical CenterGlucose (U) [Mass/Vol]NegativeUniversity Hospitals Beachwood Medical Center Ketones Ql (U)[facility] Ak[facility] CampuspH (U)6.5 [pH][facility] Clinic Orthopedic Centerpecific gravity (U) [Rel density]1.025University [facility] Beachwood Medical CenterUrobilinogen (U) [Mass/Vol]0.2 mg/dLUniversity Hospitals Beachwood Medical CenterLaboratory - Specimen informationon [id number] (U)Cloudy [facility] Medical CenterColor (U)BrownUniversity Hospitals Beachwood Medical Center Laboratory - Urinalysison 32-50-6476Evbaqklrt esterase Test strip Ql (U)Negative [facility] Beach[facility] Medical CenterNitrite Ql (U)[facility] CampusProtein Ql (U)[facility] Ak[facility] CampusNo Panel Informationon [id number] Occult BloodLargeUniversity Hospitals Beachwood Medical Center Urine Cultureon 32-66-5699Rbrphnxr identified Cx Nom (U)25,000 colonies/ml mixed bacterial skin contaminants 2 Days PERFORMED BY: [facility] [address] [place] [address] PATHOLOGIST INSPECTOR RAG SORTING KUNAL GAMBOA M.D.NormalThe Critical Access Hospital Physician GroupComment on above: Performed By: #### CUU #### [facility] [address] [place] [address] USAUrine cultureOrdered By: Brittany Swenson on 05-20-6681Anxmtlxk identified Cx Nom (U)Urine cultureUniversity Hospitals Beachwood Medical CenterMG MAMM SCREEN 3D HILDA CADon [id number] MAMM SCREEN 3D HILDA CADPatient: GENESIS CHILDERS Exam Date: 09/07/2021 : 1980 Gender:F Ordering : DR MARTELL MCGEE . Admission #: [id number] Family : Order #: [id number] CLICK HERE TO VIEW EXAM RADIOLOGY REPORT PROCEDURE: MAMMOGRAM SCREENING 3D BILATERAL CAD COMPARISON: None. INDICATIONS: Screening mammography Calculator Name NCI Breast Cancer Risk Assessment Tool 5 Year Breast Cancer Risk 0.50% Lifetime Breast Cancer Risk 8.30% Personal Breast Cancer No Personal Ovarian Cancer No Treatments None Family Cancers Grandmother-maternal with colon cancer at age 70. LOCATION: [facility] BREAST COMPOSITION: Heterogeneously dense,which may obscure small masses. FINDINGS: DIAGNOSTIC CATEGORY 1--NEGATIVE. RIGHT BREAST: No significant suspicious finding. LEFT BREAST: No significant suspicious finding. RECOMMENDATIONS: ROUTINE MAMMOGRAM AND CLINICAL EVALUATION IN 12 MONTHS. PLEASE NOTE: A NORMAL MAMMOGRAM DOES NOT EXCLUDE THE POSSIBILITY OF BREAST CANCER. A CLINICALLY SUSPICIOUS PALPABLE LUMP SHOULD BE BIOPSIED. Dictated by: Micky Olivas M.D. on 09/07/2021 at 12:46 Approved by: Micky Olivas M.D. on 09/07/2021 at 12:48[facility] ACOG PANEL 2: 30 to 65on 08-14-2021..NormalLakehealth [facility] Comment on above:Result Comment: Performed at: WBPerformed By: #### [id number] #### [facility] [address] [address] [address] Nayeli Escudero Gdln ACOG Iajvfnz09-65VnoypxQuoClinton Memorial HospitalComment on above:Performed By: #### [id number] #### [facility] [address] [address] [address] Nayeli RobertsonDIAGNOSIS:CommentCherrington HospitalComment on above: Result Comment: NEGATIVE FOR INTRAEPITHELIAL LESION OR MALIGNANCY. SHIFT IN MICHELLE SUGGESTIVE OF BACTERIAL VAGINOSIS. Performed at: WBPerformed By: #### [id number] #### [facility] [address] [address] [address] Yilan ChangHPV AptimaNegativeNormalNegativeOhioHealth Van Wert Hospital on above:Result Comment: This nucleic acid amplification test detects fourteen high-risk HPV types (16,18,31,33,35,39,45,51,52,56,58,59,66,68) without differentiation. Performed at: =GPerformed By: #### [id number] #### [facility] [address] [place] [address] Dr. Nayeli RobertsonMethodology:CommentBethesda North Hospital on above: Result Comment: This liquid based ThinPrep(R) pap test was screened with the use of an image guided system. Performed at: WBPerformed By: #### [id number] #### [facility] [address] [place] [address] Dr. Nayeli RobertsonNote:CommentBethesda North Hospital on above:Result Comment: The Pap smear is a screening test designed to aid in the detection of premalignant and malignant conditions of the uterine cervix. It is not a diagnostic procedure and should not be used as the sole means of detecting cervical cancer. Both false-positive and false-negative reports do occur. . Performed at: WBPerformed By: #### [id number] #### [facility] [address] [place] [address] Dr. Nayeli RobertsonPerformed by:CommentNoSouthwest General Health Center on above: Result Comment: Paris Grullon, Manager Of Financial (ASCP) Performed at: WBPerformed By: #### [id number] #### [facility] [address] [place] [address] Dr. Nayeli RobertsonSpecimen adequacy:CommentBethesda North Hospital on above:Result Comment: Satisfactory for evaluation. No endocervical component is identified. Performed at: WBPerformed By: #### [id number] #### [facility] [address] [place] [address] Dr. Nayeli RobertsonUrinalysis - AUTOMATEDon [id number] (U)clearPublicate Other Bilirubin Ql (U)NegativePublicate Other Color (U)pale yellowNoperry county memorial hospital [employer] Other Glucose Ql (U)NegativeZion [employer] Other Hemoglobin Ql (U)moderateZion [employer] Other Ketones Ql (U)NegativeZion [employer] Other Leukocyte esterase Test strip Ql (U)smallZion [employer] Other Nitrite Ql (U)PositiveZion [employer] Other pH (U)7.0 [pH][facility] [employer] Other Protein Ql (U)NegativeZion [employer] Other Specific gravity (U) [Rel density]1.020Zion [employer] Other Urobilinogen (U) [Mass/Vol]0.2 mg/dLZion [employer] Other Urinalysis - AUTOMATEDZion [employer] Other Vital Signs Date TimeVital SignValuePerforming AvxhsdjblSqyktqmv48-92-6718 13:55-0500Body sieion361.6 cmAidan Sanchez DO Work Phone: [employer] Ksdvrcxfyo33-37-4312 13:55-0500Body mass index (BMI) [Ratio]25.82 kg/n1QijpkwuAidan Doran DO Work Phone: [employer] Rmpondxdoe99-09-0586 13:55-0500Body .58 kgAidan Doran DO Work Phone: [employer] Sslwrymrsz46-56-6834 13:55-0500Diastolic blood byynaybr05 mm[Hg]Aidan Doran DO Work Phone: [employer] Axtyiybgmw63-32-7847 13:55-0500Systolic blood adgbxdil315 mm[Hg]Aidan Doran DO Work Phone: [facility] HospitalScaolpbffg35-61-5655 13:38-0400Body zkopru807.64 cmEric Mast DO Work Phone: 1(947)[address] [place], [place] 0536210-28-2025 13:38-0400 Body mass index (BMI) [Ratio]26.4 kg/m2Eric Mast DO Work Phone: 1(794)[address] [place], [place] 0536210-28-2025 13:38-0400 Body .1 [degF]Brittany Mast DO Work Phone: 1(362)[address] [place], [place] 0536210-28-2025 13:38-0400 Body .47 kgEric Mast DO Work Phone: 1(800)[address] [place], [place] 0536210-28-2025 13:38-0400 Diastolic blood varuunpp80 mm[Hg]Brittany Mast DO Work Phone: 1(275)[address] [place], [place] 0536210-28-2025 13:38-0400 Heart rate75 /minEric Mast DO Work Phone: 1(567)[address] [place], [place] 0536210-28-2025 13:38-0400 Respiratory rate18 /minEric Mast DO Work Phone: 1(931)[address] [place], [place] 0536210-28-2025 13:38-0400 SaO2% (BldA) [Mass fraction]97 %Brittany Mast DO Work Phone: 1(634)[address] [place], [place] 0536210-28-2025 13:38-0400 Systolic blood mm[Hg]Brittany Mast DO Work Phone: 1(982)[address] [place], [place] 0536210-20-2025 09:42-0400 Body cevolz976.6 cmShanon Hess MD Work Phone: [facility]10-20-2025 09:42-0400Body mass index (BMI) [Ratio]25.82 kg/e0UsrfbShanon Hess MD Work Phone: [facility]10-20-2025 09:42-0400Body zgqhix35.58 kgShanon Hess MD Work Phone: [facility]10-20-2025 09:42-0400Diastolic blood mm[Hg]Shanon Hess MD Work Phone: [facility]10-20-2025 09:42-0400Heart rate 71 /minShanon Hess MD Work Phone: [facility]10-20-2025 09:42-0400Systolic blood kggynmhn885 mm[Hg]Shanon Hess MD Work Phone: [facility]10-02-2025 14:58-0400Body mkyftx447.64 cmEric Mast DO Work Phone: 1(848)[address] [place], [place] 0536210-02-2025 14:58-0400 Body mass index (BMI) [Ratio]25.5 kg/m2Eric Mast DO Work Phone: 1(147)[address] [place], [place] 0536210-02-2025 14:58-0400 Body pyldsbcuhxj77.6 [degF]Brittany Mast DO Work Phone: 1(043)[address] [place], [place] 0536210-02-2025 14:58-0400 Body uhpxfn35.78 kgEric Mast DO Work Phone: 1(443)[address] [place], [place] 0536210-02-2025 14:58-0400 Diastolic blood jlmvoahf47 mm[Hg]Brittany Mast DO Work Phone: 1(939)[address] [place], [place] 0536210-02-2025 14:58-0400 Heart rate96 /minEric Mast DO Work Phone: 1(807)[address] [place], [place] 0536210-02-2025 14:58-0400 Respiratory rate18 /minEric Mast DO Work Phone: 1(949)[address] [place], [place] 0536210-02-2025 14:58-0400 SaO2% (BldA) [Mass fraction]98 %Brittany Mast DO Work Phone: 1(261)[address] [place], [place] 0536210-02-2025 14:58-0400 Systolic blood kzhicqot564 mm[Hg]Brittany Swenson DO Work Phone: [facility]05-13-2025 16:34-0400 Body bcybnq448.64 cmUniversity Hospitals Beachwood Medical Center05-13-2025 16:34-0400Body mass index (BMI) [Ratio]26.2 kg/m4WlrgnhlgqUniversity Hospitals Beachwood Medical Center05-13-2025 16:34-0400Body pumritkzbno22.6 [degF][facility]05-13-2025 16:34-0400Body txuvuj94.53 kgUniversity Hospitals Beach[facility] Medical Center05-13-2025 16:34-0400Diastolic blood zkwlacaa04 mm[Hg][facility] 06-19-2024 16:34-0400Heart rate87 /[facility] 06-19-2024 16:34-0400Respiratory rate18 /[facility] 06-19-2024 16:34-8798AfG8% (BldA) [Mass fraction]98 %[facility]05-13-2025 16:34-0400Systolic blood oyfczxho150 mm[Hg][facility]05-06-2025 14:26-0400Body .64 cmUniversity Hospitals [facility] Center05-06-2025 14:26-0400Body mass index (BMI) [Ratio]26.6 kg/m2 [facility]05-06-2025 14:26-0400Body ceplovrruut46.9 [degF][facility]05-06-2025 14:26-0400Body .06 kg [facility]05-06-2025 14:26-0400Diastolic blood rzbcrwgo95 mm[Hg][facility]05-06-2025 14:26-0400Heart rate75 /min [facility]05-06-2025 14:26-0400Respiratory rate18 /min [facility]05-06-2025 14:26-4250FiX9% (BldA) [Mass fraction]99 %[facility]05-06-2025 14:26-0400Systolic blood teezzclw528 mm[Hg][facility]05-05-2025 15:50-0400 Body imcskq462.64 cmUniversity Hospitals [facility] Center05-05-2025 15:50-0400Body mass index (BMI) [Ratio]27.1 kg/o9BwzeratpvUniversity Hospitals Beachwood Medical Center05-05-2025 15:50-0400Body kodzybebtyj18.7 [degF][facility]05-05-2025 15:50-0400Body ajyhwr70.23 kgUniversity Hospitals Beachwood Medical Center05-05-2025 15:50-0400Diastolic blood swdilhfh38 mm[Hg][facility] 06-11-2024 15:50-0400Heart rate73 /[facility] 06-11-2024 15:50-0400Respiratory rate18 /[facility] 06-11-2024 15:50-5244NyK4% (BldA) [Mass fraction]98 %[facility]05-05-2025 15:50-0400Systolic blood clqtzeyq001 mm[Hg][facility]05-01-2025 11:58-0400Body vsiiss808.64 cmUniversity Hospitals Beach[facility] Center05-01-2025 11:58-0400Body mass index (BMI) [Ratio]27.1 kg/m2 [facility]05-01-2025 11:58-0400Body rzcfieeaxqa01.4 [degF][facility]05-01-2025 11:58-0400Body .2 kg [facility]05-01-2025 11:58-0400Diastolic blood wiutsjej50 mm[Hg][facility]05-01-2025 11:58-0400Heart rate88 /min [facility]05-01-2025 11:58-0400Respiratory rate14 /min [facility]05-01-2025 11:58-1720YmG9% (BldA) [Mass fraction]95 %[facility]05-01-2025 11:58-0400Systolic blood eamjmero906 mm[Hg][facility]02-14-2025 09:25-0500 Blood Pressure LocationJENNIFER CHEKO [facility]02-14-2025 09:25-0500Diastolic blood irnpzjkn91 mm[Hg]ANTHONY STILL [facility]02-14-2025 09:25-0500Heart rate78 /minJENNIFER CHEKO [facility]02-14-2025 09:25-0500Respiratory rate18 /minJENNIFER CHEKO [facility]02-14-2025 09:25-0500Systolic blood owthiehk195 mm[Hg]ANTHONY STILL [facility]02-11-2025 15:06-0500Body awvlbl734.64 cmPHYSICIAN [facility]02-11-2025 15:06-0500Body mass index (BMI) [Ratio]27.1 kg/q9EZSXZEZOA [facility]02-11-2025 15:06-0500 Body xudaobiyyyi95.8 [degF]PHYSICIAN [facility] 03-20-2024 15:06-0500Body alzzwk74.26 kgPHYSICIAN [facility]02-11-2025 15:06-0500Diastolic blood xqzzelnr70 mm[Hg]PHYSICIAN [facility]02-11-2025 15:06-0500Heart rate96 /min PHYSICIAN [facility]02-11-2025 15:06-2844YjM8% (BldA) [Mass fraction]97 %PHYSICIAN [facility] 03-20-2024 15:06-0500Systolic blood oihsnkwh027 mm[Hg]PHYSICIAN [facility]01-28-2025 16:41-0500Body muacvi345.64 cmEric Mast DO Work Phone: 1(567)[address] [place], [place] 5993001-28-2025 16:41-0500 Body mass index (BMI) [Ratio]26.8 kg/m2Eric Mast DO Work Phone: 1(378)[address] [place], [place] 5993001-28-2025 16:41-0500 Body ezgnnwbmily09.3 [degF]Brittany Mast DO Work Phone: 1(727)[address] [place], [place] 5993001-28-2025 16:41-0500 Body faxvbi20.43 kgEric Mast DO Work Phone: 1(439)[address] [place], [place] 5993001-28-2025 16:41-0500 Diastolic blood hvdishvs982 mm[Hg]Brittany Mast DO Work Phone: 1(896)[address] [place], [place] 5993001-28-2025 16:41-0500 Heart rate75 /minEric Mast DO Work Phone: 1(100)[address] [place], [place] 5993001-28-2025 16:41-0500 SaO2% (BldA) [Mass fraction]97 %Brittany Mast DO Work Phone: 1(327)[address] [place], [place] 5993001-28-2025 16:41-0500 Systolic blood mm[Hg]Brittany Mast DO Work Phone: 1(183)[address] [place], [place] 5993001-03-2025 11:09-0500 Body ccturp713.64 cmEric Mast DO Work Phone: 1(040)[address] [place], [place] 5993001-03-2025 11:09-0500 Body mass index (BMI) [Ratio]27.4 kg/m2Eric Mast DO Work Phone: 1(266)[address] [place], [place] 5993001-03-2025 11:09-0500 Body dpdwquzsuop76.7 [degF]Brittany Mast DO Work Phone: 1(546)[address] [place], [place] 5993001-03-2025 11:09-0500 Body mpaqhg57.11 kgEric Mast DO Work Phone: 1(867)[address] [place], [place] 5993001-03-2025 11:09-0500 Diastolic blood xmfzycbr84 mm[Hg]Brittany Mast DO Work Phone: [facility]01-03-2025 11:09-0500 Heart rate84 /minEric Mast DO Work Phone: [facility]01-03-2025 11:09-0500 Respiratory rate18 /minEric Mast DO Work Phone: [facility]01-03-2025 11:09-0500 SaO2% (BldA) [Mass fraction]98 %Brittany Mast DO Work Phone: [facility]01-03-2025 11:09-0500 Systolic blood qsteaeex022 mm[Hg]Brittany Mast DO Work Phone: [facility]11-04-2024 13:38-0500 Body .6 cmWibrenda Doran DO Work Phone: [facility] HospitalTbzhndmsnl16-06-8033 13:38-0500Body mass index (BMI) [Ratio]28.41 kg/w4MyczqgiAidan Manriqueer DO Work Phone: [facility] HospitalQnswnoifla79-35-1096 13:38-0500Body txxonq20.83 kgAidan Manriqueer DO Work Phone: [facility] HospitalLkhwsmgjrj50-37-8949 13:38-0500Diastolic blood muztektq35 mm[Hg]Aidan Doran DO Work Phone: [facility] HospitalBgagpyiblu53-15-7531 13:38-0500Systolic blood mjnohceb662 mm[Hg]Aidan Doran DO Work Phone: [facility] HospitalJcybyymxrn74-59-0831 16:45-0500Body .64 cmEric Mast Other [employer] Other 12-12-2023 16:45-0500Body mass index (BMI) [Ratio] 31.45 kg/m2Eric Mast Other [employer] Other 12-12-2023 16:45-0500Body hooqtkhhtkv97.6 [degF]Brittany Mast Other [employer] Other 12-12-2023 16:45-0500Body welowd34.41 kgEric Mast Other [employer] Other 12-12-2023 16:45-0500Diastolic blood agnokczx66 mm[Hg] Brittany Mast Other [employer] Other 12-12-2023 16:45-0500Respiratory rate18 /minEric Mast Other [employer] Other 12-12-2023 16:45-0431TuP3% (BldA) [Mass fraction]99 % Brittany Mast Other [employer] Other 12-12-2023 16:45-0500Systolic blood imjusnzl754 mm[Hg] Brittany Mast Other [employer] Other 12-04-2023 13:00-0500Body lflydo197.64 cmEric Mast Other [employer] Other 12-04-2023 13:00-0500Body mass index (BMI) [Ratio] 31.12 kg/m2Eric Mast Other [employer] Other 12-04-2023 13:00-0500Body llvhoyqalxf74.7 [degF]Brittany Mast Other [employer] Other 12-04-2023 13:00-0500Body wdweai31.45 kgEric Mast Other [employer] Other 12-04-2023 13:00-0500Diastolic blood gbhsquub42 mm[Hg] Brittany Mast Other [employer] Other 12-04-2023 13:00-0500Respiratory rate18 /minEric Mast Other [employer] Other 12-04-2023 13:00-8182MuR9% (BldA) [Mass fraction]99 % Brittany Mast Other [employer] Other 12-04-2023 13:00-0500Systolic blood fysyjoyo522 mm[Hg] Brittany Mast Other [employer] Other 10-31-2023 14:30-0400Body mhwevz574.64 cmEric Mast Other [employer] Other 10-31-2023 14:30-0400Body mass index (BMI) [Ratio] 31.02 kg/m2Eric Mast Other [employer] Other 10-31-2023 14:30-0400Body ubyeelynbva43.5 [degF]Brittany Mast Other [employer] Other 10-31-2023 14:30-0400Body ojzyqb30.18 kgEric Mast Other [employer] Other 10-31-2023 14:30-0400Diastolic blood mm[Hg] Brittany Mast Other [employer] Other 10-31-2023 14:30-0400Respiratory rate18 /minEric Mast Other [employer] Other 10-31-2023 14:30-4705KbQ6% (BldA) [Mass fraction]96 % Brittany Mast Other [facility] Other 10-31-2023 14:30-0400Systolic blood cjycbesq162 mm[Hg] Brittany Mast Other [employer] Other 06-14-2023 09:00-0400Body xuvwjk423.64 cmPamela Anika Other [employer] Other 06-14-2023 09:00-0400Body mass index (BMI) [Ratio] 30.02 kg/j3Jtssyj Dymond Other [employer] Other 06-14-2023 09:00-0400Body lfjhlqqseqb14.5 [degF]Tanvi Donaldson Other [employer] Other 06-14-2023 09:00-0400Body tzcpuh23.37 kgPamela Anika Other [employer] Other 06-14-2023 09:00-0400Respiratory rate18 /minPamela Anika Other [employer] Other 06-14-2023 09:00-9639RwU8% (BldA) [Mass fraction]95 % Tanvi Kimmond Other [employer] Other 03-20-2023 10:15-0400Body .64 cmEric Mast Other [employer] Other 03-20-2023 10:15-0400Body mass index (BMI) [Ratio] 30.68 kg/m2Eric Mast Other [employer] Other 03-20-2023 10:15-0400Body pycujfohysl04.3 [degF]Brittany Mast Other [employer] Other 03-20-2023 10:15-0400Body wpjshi64.23 kgEric Mast Other [employer] Other 03-20-2023 10:15-0400Diastolic blood yvwlqmlm15 mm[Hg] Brittany Mast Other [employer] Other 03-20-2023 10:15-0400Respiratory rate18 /minEric Mast Other [employer] Other 03-20-2023 10:15-0382CoV6% (BldA) [Mass fraction]98 % Brittany Mast Other [employer] Other 03-20-2023 10:15-0400Systolic blood ssvzhusd553 mm[Hg] Brittany Mast Other [employer] Other 11-20-2022 15:30-0500Body obnptk219.64 cmStepasim Thorpe Other [employer] Other 11-20-2022 15:30-0500Body mass index (BMI) [Ratio] 31.47 kg/h5JdygrmkptCelia Thorpe Other [employer] Other 11-20-2022 15:30-0500Body sfoilradmbx43.8 [degF] Celia Thorpe Other [employer] Other 11-20-2022 15:30-0500Body .45 kgStjimena Thorpe Other [employer] Other 11-20-2022 15:30-0500Diastolic blood gdqkkkjo52 mm[Hg] Celia Thorpe Other [employer] Other 11-20-2022 15:30-0500Respiratory rate18 /minSjanna Thorpe Other [employer] Other 11-20-2022 15:30-9582JzQ8% (BldA) [Mass fraction]96 % Celia Thorpe Other [employer] Other 11-20-2022 15:30-0500Systolic blood odvivaff181 mm[Hg] Celia Thorpe Other [employer] Other 11-10-2022 16:30-0500Body .64 cmEric Mast Other [employer] Other 11-10-2022 16:30-0500Body mass index (BMI) [Ratio] 30.66 kg/m2Eric Mast Other [employer] Other 11-10-2022 16:30-0500Body vjfqcrtevxq75.8 [degF]Brittany Mast Other [employer] Other 11-10-2022 16:30-0500Body .18 kgEric Mast Other [employer] Other 11-10-2022 16:30-0500Diastolic blood ooewrpbt56 mm[Hg] Brittany Mast Other [employer] Other 11-10-2022 16:30-0500Respiratory rate18 /minEric Mast Other [employer] Other 11-10-2022 16:30-2737TdM5% (BldA) [Mass fraction]98 % Brittany Mast Other [employer] Other 11-10-2022 16:30-0500Systolic blood lquwpjsd385 mm[Hg] Brittany Mast Other [employer] Other 06-09-2022 16:45-0400Body mudxyf831.64 cmEric Mast Other [employer] Other 06-09-2022 16:45-0400Body mass index (BMI) [Ratio] 32.28 kg/m2Eric Mast Other [employer] Other 06-09-2022 16:45-0400Body bliqux03.72 kgEric Mast Other [employer] Other 06-09-2022 16:45-0400Diastolic blood otvltmew31 mm[Hg] Brittany Mast Other [employer] Other 06-09-2022 16:45-0400Respiratory rate18 /minEric Mast Other [employer] Other 06-09-2022 16:45-1210YnR7% (BldA) [Mass fraction]98 % Brittany Mast Other [facility] Other 06-09-2022 16:45-0400Systolic blood otckgnxt359 mm[Hg] Brittany Mast Other [facility] Other 11-24-2021 16:20-0500Body .64 cmPamela Anika Other [employer] Other 11-24-2021 16:20-0500Body mass index (BMI) [Ratio] 32.25 kg/i5Fuktaa Anika Other [employer] Other 11-24-2021 16:20-0500Body sszsckbwlli21.2 [degF]Tanvi Anika Other [employer] Other 11-24-2021 16:20-0500Body ywciry42.63 kgPaeris Donaldson Other [employer] Other 11-24-2021 16:20-0500Diastolic blood ebgenrte04 mm[Hg] Tanvi Anika Other [employer] Other 11-24-2021 16:20-0500Respiratory rate18 /minPaeris Anika Other [employer] Other 11-24-2021 16:20-5493VtE4% (BldA) [Mass fraction]99 % Tanvi Anika Other [employer] Other 11-24-2021 16:20-0500Systolic blood suyhlftv722 mm[Hg] Tanvi Donaldson Other [facility] [employer] Other Encounters Encounter DateEncounter TypeCare ProviderFacilityStart: 12-12-2024 End: 98-69-7127Ogumalm encounter statusAidan Doran DO Work Phone: noCT HealthcareStart: 12-12-2024 End: 77-23-6123Qmkcecyq preventive med est patient 40-64yrsWilliam Dagmar Doran DO Work Phone: [facility] OBGYNComment on above:Encounter for gynecological examination without abnormal finding (Primary Dx); Encounter for Papanicolaou smear of vagina; Breast cancer screening by mammogram; Breast tendernessStart: 12-12-2024 End: 98-59-1793wekkzgibleNSABDBH D SANCHEZNot AvailableStart: 12-04-2024 End: 11-03-5017qrqdjurfuaGkgv Mast DO Work Phone: -[facility] [place]kyStart: 12-04-2024 End: 72-43-5624Ojidqyt encounter procedureEric E Mast DO-[facility] [place] Work Phone: Start: 11-26-2024 End: 78-01-7026Syigms follow up visit related to original John Hess MD Work Phone: [facility] Surgery-TraumaComment on above:Choledocholithiasis (Primary Dx)Start: 11-26-2024 End: 64-45-1213wtknywmkmeLGFVN R HOLZEMERProMedica Middleburg HospitalStart: 11-08-2024 End: 42-18-1609zmcmgbyhigDyla Mast DO Work Phone: [facility] Work Phone: Start: 11-08-2024 End: 08-29-6701Pvpqedi encounter procedureEric E Mast DO-[facility] [place] Work Phone: Start: 11-02-2024 End: 30-68-5782RmcishWchdjtMiners' Colfax [facility], A Department of [facility], IncComment on above:Duodenal ulcer (Primary Dx); Anemia, unspecified typeStart: 11-01-2024 End: 38-74-3947Izklmj [facility], [facility] Department of [facility], IncComment on above:Anemia, unspecified type (Primary Dx)Start: 97-29-2454wkfshhvpxbNQTNHind General Hospital Ambulatory PPGStart: 24-08-9972zmjasvbierDAHXHind General Hospital Ambulatory PPG Start: 10-23-2024 End: 29-01-6566Hukphcmnym and management of inpatientANDRE [facility] Hospitaltart: 06-19-2024 End: 06-39-6520ihthmzhaslPhmqrzqrfParkview [facility] Work Phone: Start: 06-19-2024 End: 77-67-5269Kdwlysi encounter procedureCritical Access Hospital Phys[facility] GroupC[facility] [place] Work Phone: Start: 06-12-2024 End: 01-59-9836Qtoqhqy encounter procedureCritical Access Hospital Physician GroupCABR[facility] [place] Work Phone: Start: 06-11-2024 End: 44-88-7949cufjspfconPwjjtwhhmHocking Valley [facility] Hospital Work Phone: Start: 06-11-2024 End: 42-08-1517Lziujip encounter procedureCritical Access Hospital Physician GroupCABRIN[facility] Family [facility] Work Phone: Start: 06-07-2024 End: 41-89-1208scajyhorxoCpbkvewokHocking Valley Community Hospital Work Phone: Start: 06-07-2024 End: 95-02-3927Vcounbt encounter procedureCritical Access Hospital Physician GroupC[facility] Urgent Care Se Work Phone: Start: 05-02-2024 End: 17-22-3805qdgjmxkwlhKXTDKSUPremier Health Miami Valley Hospitaltart: 09-78-6355rozurehsjhHQOVDOVW E PERRYFacility:EU BellevueStart: 03-23-2024 End: 54-92-0310qrjnaqsozgKOAU E MASTFacility:EU BellevueStart: 03-23-2024 End: 98-09-6500Xrttdxl encounter procedureJENNIFER E CHEKO [facility] Swathi start: 03-20-2024 End: 67-10-5495qiyhzxteqnEQQCGUDAP NO [facility] Work Phone: Start: 03-20-2024 End: 48-04-5602Jqnbdyu encounter procedurePHYSICIAN NO [facility] [place] Work Phone: Start: 03-13-2024 End: 51-75-4379Pbvpvfohm department patient visitSamaritan North Health Centertart: 23-41-3060jubatnhhiwTHSYTCUD PERRYFacility:EU [place]Start: 03-06-2024 End: 54-79-6300eslybogkwbMtxu [facility] Work Phone: Start: 03-06-2024 End: 46-39-5243Ecdgzvbn ReferredEric Mast DO Work Phone: [facility] [place] Work Phone: Start: 03-06-2024 End: 32-32-8679Vztdwuf encounter procedureEric Mast DO Work Phone: [facility] Family Medicine [place] Work Phone: Start: 02-10-2024 End: 53-96-1470Eugsdjy encounter procedureEric Mast DO Work Phone: [facility] [place] Work Phone: Start: 81-93-7610Ysq-patient / Non-visitEric Mast DO Work Phone: [facility] Family Medicine [place] Work Phone: Start: 12-12-2023 End: 84-69-9538Fhqgbki encounter statusAidan Doran DO Work Phone: noms HealthcareStart: 12-12-2023 End: 42-17-8270Rpxuyosx preventive med est patient 40-64yrsWilliam Dagmar Doran DO Work Phone: [facility] OBComment on above:Encounter for gynecological examination without abnormal finding; Encounter for Papanicolaou smear of vagina; Breast cancer screening by mammogramStart: 01-18-2023 End: 18-87-7640ganihqzireZcey Mast Other [facility] Other Start: 87-81-6579Jgaxxre encounter procedureEric Mast [facility] [place]Start: 01-10-2023 End: 20-73-2274rcxcymntdiUexv Mast Other [facility] Other Start: 32-70-9240Kkrktq outpatient visit 15 minutes Brittany MastFPG [facility] [place]kyStart: 12-07-2022 End: 42-04-8685fgdutjsxwlLrix Mast Other [facility] Other Start: 10-02-5004Lqzvpi outpatient visit 15 minutes Brittany MastFPG [facility] [place]kyStart: 07-21-2022 End: 10-25-6304exbncsduseEnaawr Anika Other [facility] Other Start: 98-75-2011Osqxes outpatient visit 15 minutes Tanvi DonaldsonFPG [facility]gent Care ClydeStart: 04-26-2022 End: 14-87-3153okapzcymmfHlhu Mast Other [facility] Other start: 47-39-2878Oolbph outpatient visit 25 minutes Brittany MastFP[facility] [place]kyStart: 12-27-2021 End: 49-49-2587bqbdrsuukxSnjntrhcw Maurilio Other [facility] [employer] Other Start: 56-01-4665Vtzjgi outpatient visit 15 minutes Celia ClaudetteaultFPG Ur[facility] Care ClydeStart: 12-17-2021 End: 70-86-3630ugwlywtppmXfcu Mast Other [facility] [employer] Other Start: 96-15-4795Tvwizk outpatient visit 15 minutes Brittany MastFP[facility] [place]kyStart: 09-07-2021 End: 59-74-0413rjesnmxifeYK NONE LISTED REQUESTFacility:M4Veuli: 09-03-2021 End: 87-72-4814moahbqnpabQtsc Mast Other [facility] [employer] Other Start: 90-49-4434Hnmnfrxqg encounterEric MastFP[facility] [place]kyStart: 08-11-2021 End: 39-86-4101oyabmdqmcnOX MARTELL KAYCASIFacility:H7Utxje: 07-16-2021 End: 27-89-0073jqzbnupklaQnig Mast Other [facility] [employer] Other Start: 43-28-1631Yqrisg outpatient visit 25 minutes Brittany MastFP[facility] [place]kyStart: 12-31-2020 End: 58-62-5133yhtxnfnclhKhitqy Anika Other [facility] Other Start: 14-68-2189Ouigby outpatient visit 25 minutes Tanvierasto DonaldsonFPG Urgent Care Se Procedures DateProcedureProcedure DetailPerforming ClinicianStart: 39-02-5680Zxpau depression screening assessmentShanon Hess MD Work Phone: start: 93-07-1327Autge depression screening assessment Ashley Radford CMAStart: 82-22-1871Ayyed Strep (POC)Start: 79-94-5529Aphlk culture PHYSICIAN NO FAMILYStart: 64-95-2567TudslgeabsgYddjrmi Bruner DO Work Phone: start: 24-21-8621Wnwerazlckx observation [Identifier] in Cervix by Cyto stainStevojuvenciobrenda Doran DO Work Phone: start: 12-07-2022 End: 12-12-2023H/O: hysterectomyStatus post hysterectomyWilliabrenda Doran DO Work Phone: bilateral tubal ligationJENNIFER CHEKO ColonoscopyJENNIFER CHEKO History of cholecystectomyHistory of cholecystectomy Brittany E Mast DOHistory of cholecystectomyHistory of cholecystectomyEric E Mast DO Partial hysterectomyJENNIFER CHEKO Plan of Treatment DateCare ActivityDetailAuthorStart: 03-00-4852AXpA,Tdap and Td Vaccines (2 - Td or Tdap)DTaP,Tdap and Td Vaccines (2 - Td or Tdap)[facility] SystemStart: 44-81-3817Hreegzdfp for malignant neoplasm of cervixNOMS HealthcareStart: 86-29-1989Ziuawezkv for malignant neoplasm of cervixNOMS HealthcareStart: 66-76-4022Wrmyicm ScreeningTobacco ScreeningProWright-Patterson [facility] Center SystemStart: 90-12-2484Lsggu BMI ScreeningAdult BMI ScreeningProWright-Patterson Medical Center SystemStart: 44-92-3079Nkgmkpotbp ScreeningDepression ScreeningProWright-Patterson Medical Center SystemStart: 12-12-2024 End: 07-63-8262LTC Breast - bilateral screeningBilateral screening mammogram with tomosynthesis Imaging Routine Breast cancer screening by mammogram Expected: 12/12/2024, Expires: 02/11/2026NOMS HealthcareComment on above: Expected: 12/12/2024, Expires: 02/11/2026Start: 12-12-2024 End: 95-45-0130Iiidnji encounter diiblayrp28/05/2025 2:00 PM EST Office Visit [facility] [address] [place] [phone] Aidan Doran, DO [address] [place] [address] [facility] SWS OBStart: 11-20-2024 End: 83-71-4864Uvrmrjq encounter yqcrruvzu32/14/2025 9:00 AM EDT [facility] [address] [facility] [address] [place] [phone] Shanon Hess MD [address] [place] [address], [address] [place], [id number] [facility]-TraumaStart: 69-01-3663VEESY-19 Vaccine ( season)COVID-19 Vaccine ( season)[facility] HealthcareStart: 79-92-7343PGTBN-19 Vaccine ( season)COVID-19 Vaccine ()[facility] Start: 36-76-9511Wlhftsyxi vaccinationC[facility] Clinic South [facility]inte [facility] SystemStart: 03-06-2024 Urine cultureCrystal Clinic Orthopedic Centertart: 33-77-1482[place] identified in Urine by CultureUrine [facility] Start: 06-33-8015Xhfcasdwq for malignant neoplasm of breastMammogramNOCT HealthcareStart: 01-02-2024 End: 15-97-4506WMH Breast - bilateral screeningBilateral screening mammogram with tomosynthesis Imaging Routine Breast cancer screening by mammogram Expected: 01/02/2024, Expires: 02/10/2025NOCT HealthcareComment on above: Expected: 01/02/2024, Expires: 02/10/2025Start: 76-28-2879Pbdoehxoj vaccination Influenza Vaccine (#1)[facility] HealthcareStart: 36-82-8178Vbpbwobdt for malignant neoplasm of cervixHPV/CotestNOMS HealthcareStart: 00-70-1904Dzplt BMI Follow Up PlanAdult BMI Follow Up PlanNovant Health/NHRMCtart: 06-83-4005Vvmjabb CounselingTobacc CounselingRegency Hospital [facility] End: 54-33-3560HAS W Auto Differential panel - BloodCBC auto differential Lab Routine Anemia, unspecified type 1 Occurrences starting 11/01/2024 until 0 11/01/2025[facility] Work Phone: Comment on above:1 Occurrences starting 11/01/2024 until 6CBC W Auto Differential panel - BloodCBC auto differential Lab Routine Anemia, unspecified type 11/01/2024 4:09 PM [facility] IGP,rfxAptima HPV all,16/18,45IGP,rfxAptima HPV all,16/18,45 Pathology and Cytology Routine Encounter for Papanicolaou smear of vagina Ordered: 12/12/2023 [facility] Healthcare Work Phone: comment on above:Ordered: 12/12/2023IGP,rfxAptima HPV all,16/18,45IGP,rfxAptima HPV all,16/18,45 Pathology and Cytology Routine Encounter for Papanicolaou smear of vagina Ordered: 12/12/2024[facility] [employer] Work Phone: comment on above:Ordered: 12/12/2024 Immunizations Immunization DateImmunizationNotesCare EmtktudwCjnqmlek13-42-0842tjtnekabg, injectable, quadrivalent, preservative freeEric Mast Other [employer] Other [id number]-73 Vaccine Moderna - Documentation Purposes OnlyEric Mast Other [facility] Other 11-236682-20-5835thkgexv toxoid, reduced diphtheria toxoid, and acellular pertussis vaccine, adsorbedStepasim Thorpe Other [employer] Other 11-020030-37-6799ivktilhgp, injectable, quadrivalent, preservative freeEric Mast Other [place] [employer] Other 1417183-69-5531sbikqqucv virus vaccine, unspecified formulationWilliabrenda Doran DO Work Phone: [facility]07-19-2022SARS-CoV-2 (COVID-19) mRNA-1273 vaccineJENNIFER CHEKO [facility]11-30-2021SARS-CoV-2 (COVID-19) mRNA-1273 vaccineJENNIFER CHEKO [facility]02-01-2021SARS-CoV-2 (COVID-19) mRNA-1273 vaccineJENNIFER CHEKO [facility]01-04-2021SARS-CoV-2 (COVID-19) mRNA-1273 vaccineJENNIFER CHEKO [facility]11-06-2020influenza virus vaccine, unspecified formulationJENNIFER CHEKO [facility]11-06-2020influenza, injectable, quadrivalent, preservative freeWilliam Sanchez DO Work Phone: [facility]ty HospitalPdstejeavf77-18-0836ejzfczggl, seasonal, injectablePamela Anika Other [facility] [employer] Other 1204360-35-0622qgncvajjb virus vaccine, H1N1, liveJENNIFER CHEKO [facility]10-27-2009novel Sbmaoiyyw-W2A9-88, live virus for nasal administration Aidan Doran DO Work Phone: NONE HealthcareNEGATED: Highlighted row has not occurred!46-76-4028ntoajdavh, injectable, quadrivalent, contains preservative Patient ObjectionPaeris Donaldson Other [facility] [employer] Other Payers DatePayer CategoryPayerPolicy [id number] Health InsuranceMEDICAL MUTUAL [id number] Managed Care - O1.2.840.725919.1.13.424.2.7.9.207276.[id number] 2..1.714889.3.57[id number] 2..1.005198.3.579.[id number] 2..1.472620.3.57[id number] 2..1.589009.3.579.[id number] 2..1.325981.3.579.[id number] 2..1.079454.3.579.2.1[id number] 2..1.830464.3.579.2.8[id number] 2.0.1.448922.3.579.[id number] 2.840.1.306129.3.57[id number] 2.0.1.909538.3.579.2.[id number] 2.0.1.182972.3.579.2.[id number] 2.0.1.940031.3.579.2.[id number] 2.0.1.369409.3.579.[id number] 2.0.1.038964.19 Private Health [id number] kyon382j-81e5-3x1o-na9u-9b51530yy1fnHtbcfga [id number] 2.0.1.477201.3.579.2.531Worker's Lbiektxanodd43-669394 Social History DateTypeDetailFacilityUnknown if ever smokedWhereoscope Other Start: 12-12-2023 End: 92-12-9771Rnu Assigned At [facility] HospitalCloudPay [employer] Other Start: 11-29-2017 End: 38-46-1867Qctfyvu smoking status NHISSmokes tobacco dailyNOMS Healthcare History of tobacco useCigarette SmokerNOMS HealthcareStart: 12-08-2022 End: 16-69-7704Igvzusj use and exposureSmokeless tobacco non-userNOMS Healthcare Start: 12-12-2023 End: 33-94-3887Afkjzvvqh beverage intakeCurrent drinker of alcohol (finding)[facility] HealthcareStart: 12-12-2023 End: 62-66-4384Egxqfhh of Social functionNOMS HealthcareHow often to you have a drink containing alcohol?Monthly or lessNOMS HealthcareHow many standard drinks containing alcohol do you have on a typical day?1 or 2NOMS HealthcareHow often do you have 6 or more drinks on 1 occasion?NeverUN[facility] HealthcareStart: 12-07-2022 Alcohol CommentCaffeine intake: 2-3 cups per dayUNIVERSITY OF UTAH HOSPITAL HealthcareStart: 1980 Sex assigned at birthNot on fileUNIVERSITY OF UTAH HOSPITAL HealthcareStart: 11-29-2017 End: 87-65-4034Xdzxact smoking status NHISSmoker (finding)[facility]ertart: 79-51-6437KytYjiaivm sex unknown (finding)[facility] Centertart: 83-97-7574Ana Assigned At BirthFeelmira psychiatric centereFShelby Memorial Hospitaltart: 09-12-2014 End: 72-16-6099TurNcjosv (finding)[facility] Centertart: 16-55-0790Xpcjkfh smoking statusLight tobacco smoker (finding)[facility] Centertart: 74-39-2583Kkhjmsi smoking status NeverExecutive [facility] of [facility] the electric, gas, oil, or water company threatened to shut off services in your home in past 12K[facility] Health Health SystemStart: 73-27-5347Ncpcifb CommentoccasionalProOhiohealth Nelsonville Health Centerca Health System Goals DatePatient GoalDesired Activity/StatePersonal health goalComment on above: Evaluation of progress towards goal: Patient plans for safe discharge home with spouse. Functional Status UdrpYsfsfswznzKkhauuPrdnyhct38-71-2173Stfob score [AUDIT-C]1 12/12/2024 1:58 PM EST July [place] MANOMS Elhebgtbzj25-61-8148Lnksodl Health Questionnaire 2 item (PHQ-2) [Reported][facility] Specialty HospitalAwgbjkjowh55-84-3199Ornliedpbw StatusN/AExec[facility] Clinical Notes 12-31-2020 to 12-12-2024 Note Date & MpbbKwjlWhsjbgwv64-14-3181 History of Present illness Narrative* Rosaleeese Rubalcava MA - 12/12/2024 2:00 PM EST Images from the original note were not included. Aidan Doran, DO Obstetrics and Gynecology Genesis Huynhs 1980 12/12/24 [id number] Yearly Wellness Exam Chief Complaint Patient presents with Gynecologic Exam LMP: TLH 2010 HRT: None Last pap 12-12-23 neg. Last mammogram 12-31-[address] [facility]. Denies urinary or bowel concerns. Breast Problem Reports bilateral breast pain and heaviness. States general nipple pain- worse when touched. Visit Vitals BP 128/72 Ht 5' 6 Wt 160 lb BMI 25.82 kg/m OB Status Hysterectomy Smoking Status Every Day BSA 1.84 m OB History Para Term AB Living 3 2 1 1 2 SAB IAB Ectopic Multiple Live Births 1 2 # Outcome Date GA Lbr Demetrio/2nd Weight Sex Type Anes PTL Lv 3 Term Vag-Spont WAQAS 2 SAB 1 Para Vag-Spont WAQAS Obstetric Comments Heaviest weighed 7 lbs 13 oz Current Outpatient Medications Medication Sig Dispense Refill acetaminophen (Tylenol) 325 MG tablet Take 650 mg by mouth every 4 (four) hours if needed Cyanocobalamin 5000 MCG capsule Daily cyclobenzaprine (Flexeril) 10 MG tablet Take 10 mg by mouth 3 (three) times a day as needed for muscle spasms pantoprazole (ProtoNix) 40 MG EC tablet busPIRone (Buspar) 15 MG tablet DULoxetine (Cymbalta) [address] capsule Take 60 mg by mouth in the morning. meloxicam (Mobic) 15 MG tablet 1 tablet Daily pyridoxine (B-6) 100 MG tablet Take 1 tablet (100 mg) by mouth in the morning and 1 tablet (100 mg)before bedtime. 60 tablet 2 No current facility-administered medications for this visit. Allergies Allergen Reactions Richard Unknown Latex Unknown Sulfa Antibiotics Past Surgical History: Procedure Laterality Date CHOLECYSTECTOMY 10/26/2024 COLONOSCOPY D&C FIRST TRIMESTER / TX INCOMPLETE / MISSED / SEPTIC / INDUCED 2004 EGD 2013 EGD 10/25/2024 HYSTERECTOMY 08/06/2010 [facility] TUBAL LIGATION Bilateral 2007 post Past Medical History: Diagnosis Date Anemia Anxiety COVID 04/2019 Depression Dysmenorrhea Enlarged lymph node in neck Irritable bowel syndrome 2012 Menometrorrhagia 2011 Nosebleed Obesity (BMI 30-39.9) Stroke (HCC) ROS Const: Denies appetite change, fever, chills. [...] bilaterally, normal nipples bilaterally - everted - moderately cystic - dense - well supported- axilla negative. Engorged. ABDOMEN: soft, nontender, nondistended, no masses palpable. BACK: no costovertebral angle tenderness, no obvious scoliosis/kyphosis. 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 Patient to call and schedule. [place]. 4. Breast tenderness N64.4 pyridoxine (B-6) 100 MG tablet Voice nipple/ breast tenderness wears sports bra to bed for the past few months- helps. Start on 100 mg pyridoxine and OTC vitamin E. Try for 2 months, call us with update. Get screening mammogram inthe meantime. Entered by Rosalee Rubalcava MA acting as scribe for Dr. Aidan Doran. Signature Rosalee Rubalcava MA Date 12/12/24 . Time 2:06 PM . The documentation recorded by the scribe accurately reflects the service(s) I personally performed and the decisions I made. Signature Master NievesO. Date 12/12/24 Time 5:00PM. documented in this encounterRanken Jordan Pediatric Specialty HospitalKdiekzopiu19-55-1636 History of Present illness Narrative* Shanon Hess MD - 11/26/2024 10:00 AM EDT Images from the original note were not included. CHIEF COMPLAINT: Chief Complaint Patient presents with Post-op Gallbladder on 10/26/24 History of Present Illness: Genesis Childers is a pleasant 44 y.o. female presenting s/p l/s CCY on 10/26/2024. She denies any current complaints with exception of some nausea with fatty foods. She is having regular bowel function. She has returned to her activities of daily living. She does not have any lifting restrictions. Past Medical History: Diagnosis Date Cholecystitis Dental disease full upper lower plate Kidney calculi Past Surgical History: Procedure Laterality Date ENDOSCOPIC RETROGRADE CHOLANGIO-PANCREATOGRAPHY SPHINCTEROTOMY AMPULLA N/A 10/25/2024 Performed by Juaquin Aguilar MD at [facility] ENDOSCOPIC ULTRASOUND (UPPER) N/A 10/25/2024 Performed by Juaquin Aguilar MD at [facility] LAPAROSCOPIC CHOLECYSTECTOMY N/A 10/26/2024 Performed by Shanon Hess MD at [facility] SUR[facility] PARTIAL HYSTERECTOMY TUBAL LIGATION Allergies: Allergies Allergen Reactions Richard Anaphylaxis Latex Rash Medications: Current Outpatient Medications: acetaminophen (TYLENOL) 325 mg tablet, Take 2 tablets (650 mg total) by mouth every 4 (four) hours as needed for pain or fever., Disp: 30 tablet, Rfl: 0 busPIRone (BUSPAR) 15 mg tablet, Take 1 tablet (15 mg total) by mouth in the morning and at bedtime., Disp: , Rfl: cyanocobalamin 1000 MCG tablet, Take 1 tablet (1,000 mcg total) by mouth in the morning., Disp: 30 tablet, Rfl: 0 DULoxetine (CYMBALTA) 60 mg capsule, Take 1 capsule (60 mg total) by mouth in the morning., Disp: ,Rfl: folic acid (FOLVITE) 1 mg tablet, Take 1 tablet (1 mg total) by mouth in the morning., Disp: 30 tablet, Rfl: 0 pantoprazole (PROTONIX) 40 mg EC tablet, Take 1 tablet (40 mg total) by mouth every morning before breakfast., Disp: 30 tablet, Rfl: 1 Review of Systems - Constitutional: Denies fever, fatigue, unintentional weight loss or gain or night sweats. Integument: Intact. Blood/Lyphatic: Denies ecchymosis or palpable mass, no swelling. Allergy/Immunology: Denies recurrent infections, rash, urticaria or fever. Cardiovascular: Denies chest pain, shortness of breath, diaphoresis or decrease in energy level. Pulmonary: Denies cough, expectoration or shortness of breath. Gastrointestinal: Denies diarrhea, constipation, melena or hematochezia. Genitourinary: No frequency, urgency, incontinence or dysuria. Denies decrease in uroflow. Musculoskeletal: Denies joint swelling, myalgias or arthralgias. Neurologic: Denies numbness, tingling or weakness. No focal neurologic complaints. Psychiatric: Denies depressed mood or suicidal ideation. Social History Socioeconomic History Marital status: Spouse name: Not on file Number of children: Not on file Years of education: Not on file Highest education level: Not on file Occupational History Not on file Tobacco Use Smoking status: Every Day Types: Cigarettes Smokeless tobacco: Never Vaping Use Vaping status: Never Used Substance and Sexual Activity Alcohol use: Yes Comment: occasional Drug use: Not Currently Sexual activity: Yes Partners: Male control/protection: Surgical Other Topics Concern Not on file Social History Narrative Not on file Social Drivers of Health Financial Resource Strain: Low Risk (10/24/2024) Overall Financial Resource Strain (CARDIA) Difficulty of Paying Living Expenses: Not hard at all Food Insecurity: No Food Insecurity (11/26/2024) Hunger Screening Food Insecurity - Worry: Never True Food Insecurity - Inability: Never True Transportation Needs: No Transportation Needs (10/24/2024) PRAPARE - Transportation Lack of Transportation (Medical): No Lack of Transportation (Non-Medical): No Physical Activity: Not on file Stress: Not on file Social Connections: Not on file Interpersonal Safety: Not At Risk (10/24/2024) Humiliation, Afraid, Rape, and Kick questionnaire Fear of Current or Ex-Partner: No Emotionally Abused: No Physically Abused: No Sexually Abused: No Housing Instability: Low Risk (10/24/2024) Housing Instability Housing Instability: No Family History: No family history on file. ON EXAMINATION: CONST: Comfortable, alert, oriented X 3. Vitals: 11/26/24 0942 BP: 129/73 Pulse: 71 EYES: No jaundice, no anemia. ENT: No ear discharge NEURO: GCS 15, Motor 5/5, CN grossly intact, sensory intact. CV: S1, S2 audible in all 4 areas. RESP: Clear breath sounds, no rales or rhonchi. GI: Abdomen soft, non-tender, non-distended. No hernias PSYCH: No depression, psychosis. MSK: No joint swelling, no edema. SKIN: No rash, no jaundice HEME/LYMPH: No lymphadenopathy. Labs: Lab Results Component Value Date WBC 11.0 11/01/2024 HGB 12.2 11/01/2024 HCT 35.7 11/01/2024 MCV 100 11/01/2024 PLT 445 11/01/2024 Lab Results Component Value Date GLU 97 10/26/2024 CALCIUM 8.9 10/26/2024 K 3.9 10/26/2024 CO2 26 10/26/2024 CL 106 10/26/2024 BUN 9 10/26/2024 CREATININE 0.65 10/26/2024 No results found for: AMYLASE Lab Results Component Value Date LIPASE 82 10/26/2024 Lab Results Component Value Date ALT 84 (H) 10/26/2024 AST 29 10/26/2024 ALKPHOS 130 10/26/2024 Lab Results Component Value Date INR 1.0 10/24/2024 PROTIME 11.1 10/24/2024 Assessment: Genesis Childers is a 44 y.o.female with Patient Active Problem List Diagnosis Cholecystitis, acute Choledocholithiasis Plan: Pathology reviewed Follow-up PRN Continue low fat diet for 2 weeks Eloy Hess MD * Angelito Romanali - 11/26/2024 10:00 AM EDT Images from the original note were not included. Outpatient Clinic History & Physical Note Subjective Genesis Childers is a pleasant 44 y.o. female with PMH of depression and PSH of hysterectomy here for follow up after laparoscopic cholecystectomy (10/26) due to acute cholecystitis with choledocholithiasis. Pt is doing well overall and is not having any pain following surgery. She reports that her bowel movements have become more consistent and is not having any nausea/vomiting. She states that her and her have been following a low fat diet recently and when she does eat fatty foods it upsets her stomach. She no longer has any lifting restrictions and laparoscopic sites are healing appropriately. Review of Systems Constitutional: Negative for fever, activity change, fatigue and unexpected weight change. Respiratory: Negative for shortness of breath and wheezing. Cardiovascular: Negative for chest pain and chest discomfort. Gastrointestinal: Negative for nausea, vomiting, abdominal pain, diarrhea, constipation and abdominal distention. Genitourinary: Negative for difficulty urinating. Past Medical History: Diagnosis Date Cholecystitis Dental disease full upper lower plate Kidney calculi Past Surgical History: Procedure Laterality Date ENDOSCOPIC RETROGRADE CHOLANGIO-PANCREATOGRAPHY SPHINCTEROTOMY AMPULLA N/A 10/25/2024 Performed by Juaquin Aguilar MD at [facility] ENDOSCOPIC ULTRASOUND (UPPER) N/A 10/25/2024 Performed by Juaquin Aguilar MD at [facility] LAPAROSCOPIC CHOLECYSTECTOMY N/A 10/26/2024 Performed by Shanon Hess MD at [facility] PARTIAL HYSTERECTOMY TUBAL LIGATION Allergies Allergen Reactions Richard Anaphylaxis Latex Rash Current Outpatient Medications: acetaminophen (TYLENOL) 325 mg tablet, Take 2 tablets (650 mg total) by mouth every 4 (four) hours as needed for pain or fever., Disp: 30 tablet, Rfl: 0 busPIRone (BUSPAR) 15 mg tablet, Take 1 tablet (15 mg total) by mouth in the morning and at bedtime., Disp: , Rfl: cyanocobalamin 1000 MCG tablet, Take 1 tablet (1,000 mcg total) by mouth in the morning., Disp: 30 tablet, Rfl: 0 DULoxetine (CYMBALTA) 60 mg capsule, Take 1 capsule (60 mg total) by mouth in the morning., Disp: ,Rfl: folic acid (FOLVITE) 1 mg tablet, Take 1 tablet (1 mg total) by mouth in the morning., Disp: 30 tablet, Rfl: 0 pantoprazole (PROTONIX) 40 mg EC tablet, Take 1 tablet (40 mg total) by mouth every morning before breakfast., Disp: 30 tablet, Rfl: 1 Social History Socioeconomic History Marital status: Spouse name: Not on file Number of children: Not on file Years of education: Not on file Highest education level: Not on file Occupational History Not on file Tobacco Use Smoking status: Every Day Types: Cigarettes Smokeless tobacco: Never Vaping Use Vaping status: Never Used Substance and Sexual Activity Alcohol use: Yes Comment: occasional Drug use: Not Currently Sexual activity: Yes Partners: Male control/protection: Surgical Other Topics Concern Not on file Social History Narrative Not on file Social Drivers of Health Financial Resource Strain: Low Risk (10/24/2024) Overall Financial Resource Strain (CARDIA) Difficulty of Paying Living Expenses: Not hard at all Food Insecurity: No Food Insecurity (11/26/2024) Hunger Screening Food Insecurity - Worry: Never True Food Insecurity - Inability: Never True Transportation Needs: No Transportation Needs (10/24/2024) PRAPARE - Transportation Lack of Transportation (Medical): No Lack of Transportation (Non-Medical): No Physical Activity: Not on file Stress: Not on file Social Connections: Not on file Interpersonal Safety: Not At Risk (10/24/2024) Humiliation, Afraid, Rape, and Kick questionnaire Fear of Current or Ex-Partner: No Emotionally Abused: No Physically Abused: No Sexually Abused: No Housing Instability: Low Risk (10/24/2024) Housing Instability Housing Instability: No No family history on file. Objective Vitals: Pulse: [71] 71 BP: (129)/(73) 129/73 Physical Exam Constitutional: Appearance: Normal appearance. She is normal weight. HENT: Head: Normocephalic and atraumatic. Cardiovascular: Pulses: Normal pulses. Pulmonary: Effort: Pulmonary effort is normal. Abdominal: General: Abdomen is flat. Palpations: Abdomen is soft. Comments: Laparoscopic sites are healing appropriately. Musculoskeletal: General: Normal range of motion. Neurological: General: No focal deficit present. Mental Status: She is alert and oriented to person, place, and time. Psychiatric: Mood and Affect: Mood normal. Behavior: Behavior normal. Labs: Lab Results Component Value Date WBC 11.0 11/01/2024 HGB 12.2 11/01/2024 HCT 35.7 11/01/2024 MCV 100 11/01/2024 PLT 445 11/01/2024 Lab Results Component Value Date GLU 97 10/26/2024 CALCIUM 8.9 10/26/2024 K 3.9 10/26/2024 CO2 26 10/26/2024 CL 106 10/26/2024 BUN 9 10/26/2024 CREATININE 0.65 10/26/2024 No results found for: AMYLASE Lab Results Component Value Date LIPASE 82 10/26/2024 Lab Results Component Value Date ALT 84 (H) 10/26/2024 AST 29 10/26/2024 ALKPHOS 130 10/26/2024 Lab Results Component Value Date INR 1.0 10/24/2024 PROTIME 11.1 10/24/2024 Assessment Genesis Childers is a 44 y.o. female with no significant past medical history presenting for follow up after laparoscopic cholecystectomy (10/26/24). She is doing well overall and has no concerns following surgery. Plan Follow up with office as needed Lorri Eaton M3 [facility]* Diagnosis Onset Date Resolution Status Admit Date Acute cholecystitis acuteOctober 2024 2:51pmHistory of cholecystectomyacuteOctober 2024 2:51pmHospital discharge follow-upacuteOctober 2024 2:51pmHistory of cholecystectomyacuteOctober 2024 1:26pm [facility] Work Phone: 1(357) 431-827305-01-2025 Evaluation note* Diagnosis Onset Date Resolution Status Admit Date Acute bacterial pharyngitis acuteMay 2024 11:21amSinusitisacuteMay 2024 11:21amIngrown toenail of both feetacuteMay 2024 3:39pmOnychomycosisacuteMay 2024 3:39pmIngrown toenail of both feetacuteMay 2024 2:08pm [facility] Work Phone: 1(844) 308-581303-26-2025 NoteXR SPINE CERVICAL 3 VWS OR LESS Procedure: Cervical spine radiographs performed Number of views:3 History:Trauma neck pain Comparison:None Findings: There is no fracture, malalignment, prevertebral soft-tissue swelling, or destructive lesion. There is mild disc space narrowing at C5-6. Impression: No acute findings. Finalized by Cliff Morrison MD on 05/02/2024 3:09 [facility] 05-02-2024 NoteXR SPINE THORACIC 3 VWS Procedure: Thoracic spine radiographs performed Number of views:3 History:Trauma back pain Comparison:None Findings: There is no fracture, malalignment, or destructive lesion. Vertebral body height and discspace height are well maintained. Impression: 1. No acute findings. Finalized by Cliff Morrison MD on 05/02/2024 3:09 [facility] 03-23-2024 Hospital Discharge instructions Patient Education 03/23/2024 11:27:42 Kidney Stones, [id number] Kidney Stones Kidney stones are rock-like masses [...] Follow these instructions at home: Medicines Take nwtm-jss-vlmzfqm and prescription medicines only as told by [...] Kidney Foundation (NKF): kidney.org [facility] Care [facility] (F): urologyhealth.org Contact a doctor if: You have [...] provider. Document Revised: 09/17/2022 Document Reviewed: 09/17/2022 [employer] Patient Education 2023 [employer]. Follow Up Care 03/19/2024 14:55:45 With:CHEKO RIVAS, ANTHONY Zaragoza, URL Address: [address] [address] When:Within 1 Month(s) [facility] 02-14-2025 NotePatient Education Urology Kidney Stones Kidney [...] these instructions at home: Medicines ??? Take plem-bsm-qloibtx and prescription medicines only as told by [...] provider. Document Revised: 09/17/2022 Document Reviewed: 09/17/2022 [employer] Patient Education ? 2023 [employer].[facility] 03-20-2024 Evaluation note* Diagnosis Onset Date Resolution Status Admit Date Gross hematuria acuteFebruary 2024 2:54pmKidney stonesacuteFebruary 2024 2:54pm [facility] Work Phone: 1(585) 140-769902-11-2025 Evaluation note* Diagnosis Onset Date Resolution Status Admit Date Gross hematuria acuteFebruary 2024 2:54pmKidney stonesacuteFebruary 2024 2:54pmAcute bacterial pharyngitisacuteMay 2024 11:21amSinusitisacuteMay 2024 11:21am [facility] Work Phone: 1(924) 488-234201-03-2025 Evaluation note* Diagnosis Onset Date Resolution Status Admit Date Anxiety with depression acuteJanuary 2024 11:00amOverweight (BMI 25.0-29.9)acuteJanuary 2024 11:00amRight hip painacuteJanuary 2024 11:00amDysuriaacuteJanuary 2024 4:37pmGross hematuriaacuteJanuary 2024 4:37pm [facility] Work Phone: 1(360) 705-537401-03-2025 Evaluation note* Diagnosis Onset Date Resolution Status Admit Date Anxiety with depression acuteJanuary 2024 11:00amOverweight (BMI 25.0-29.9)acuteJanuary 2024 11:00amRight hip painacuteJanuary 2024 11:00amDysuriaacuteJanuary 2024 4:37pmGross hematuriaacuteJanuary 2024 4:37pmGross hematuriaacute February 2024 2:54pmKidney stonesacuteFebruary 2024 2:54pm [facility] Work Phone: 1([phone]) 755-918511-04-2024 History of Present illness Narrative* Rosalee Rubalcava MA - 12/12/2023 2:00 PM EST Images from the original note were not included. Aidan Doran, DO Obstetrics and Gynecology Genesis Childers 1980 12/12/23 [id number] Yearly Wellness Exam Chief Complaint Patient presents with Gynecologic Exam LMP: TLH 2010 HRT: None Last pap 12-08-22 neg. Last mammogram 12-31-[address] [facility]. Denies breast, urinary, or bowel concerns. [...] medications for this visit. Allergies Allergen Reactions Richard Other Reaction(s): Unknown Latex Other Reaction(s): Unknown Sulfa Antibiotics Past Surgical History: Procedure Laterality Date COLONOSCOPY D&C FIRST TRIMESTER / TX INCOMPLETE / MISSED / SEPTIC / INDUCED 2004 EGD 2014 HYSTERECTOMY 08/06/2010 [facility] TUBAL LIGATION Bilateral 2006 post Past Medical History: Diagnosis Date Anemia Anxiety COVID 04/2019 Depression (CMS/HCC) Dysmenorrhea Enlarged lymph node in neck Irritable bowel syndrome 2012 Menometrorrhagia 2011 Nosebleed Obesity (BMI 30-39.9) Stroke ([facility]) ROS Const: Denies appetite change, fever, chills. [...] costovertebral angle tenderness, no obvious scoliosis/kyphosis. 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 Aidan Doran. Signature Rosalee Rubalcava MA Date 12/12/23 . Time 1:47 PM . The documentation recorded by the scribe accurately reflects the service(s) I personally performed and the decisions I made. Signature Isaac Doran D.O. Date 12/12/23 Time 5:00PM. documented in this encounterRanken Jordan Pediatric Specialty [id number] Evaluation note* Encounter Date Diagnosis Assessment Notes Treatment Notes Treatment Clinical Notes Jan, Ingrown toenail (ICD-10 - L60.0) The area has healed well. Recheck as needed [facility] Other 12-04-2023 Evaluation note* Encounter Date Diagnosis Assessment Notes Treatment Notes Treatment Clinical Notes Jan, Ingrown toenail (ICD-10 - L60.0) Jan,Onychomycosis (ICD-10 - B35.1) Jan,OtherWe discussed treatment options. I advised that partial nail removal would likely afford her the best symptom improvement today. I offered referral to podiatry but she request that I perform this heretoday. Informed consent obtained. We elected to treat [...] remove the medial third of the nail. Nicolas rniquet removed, Iodoform gauze and dressing applied. She tolerated the procedure well, there were no complications. Home care reviewed. Wound check in 1 week, call if problems arise. We did also briefly discuss treatment for onychomycosis, we will readdress this at follow-up. [facility] Other 10-31-2023 Evaluation note* Encounter Date Diagnosis Assessment Notes Treatment Notes Treatment Clinical Notes Nov, Anxiety with depression (ICD-10 - F41.8) Doing well on current medications, continue the same. Recheck in 6 months, sooner if problems Nov,Flu vaccine need (ICD-10 - Z23) Nov,OtherShe will let me know if she needs a new EpiPen, I will be happy to refill this for her [facility] Other 06-14-2023 Evaluation note* Encounter Date Diagnosis Assessment Notes Treatment Notes Treatment Clinical Notes Jul, Acute sinusitis, rec urrence not specified, unspecified location (ICD-10 - J01.90) Sinusitis home care material was printed Drink plenty fluids, get plenty of rest. Take the amoxicillin with clavulanate as prescribed until gone. Take the prednisone as prescribed until gone. Use the Flonase inhaler as prescribed until yoursymptoms improve. You may continue to take Mucinex as needed for congestion. Take Tylenol or Motrinas needed for aches pains or fevers. Follow-up with your family physician if no improvement in 2 to 3 days. You may return to work tomorrow [facility] Other 03-20-2023 Evaluation note* Encounter Date Diagnosis Assessment Notes Treatment Notes Treatment Clinical Notes Apr, Anxiety with depression (ICD-10 - F41.8) Stay on the Cymbalta, increase the buspirone up to 15 mg twice daily. Short counseling session held, I encouraged her to arrange formal counseling Apr,Neck fullness (ICD-10 - R22.1)Exam suggest a possible thyroid fullness on the left. I do not appreciate any neck mass or adenopathy. Check ultrasound, further treatment pending results [facility] Other 11-20-2022 Evaluation note* Encounter Date Diagnosis Assessment Notes Treatment Notes Treatment Clinical Notes Dec, Puncture wound of ri ght foot, initial encounter (ICD-10 - S91.331A) Updated vaccine in office today. . FOllow up wiht PCP if symptoms such as moderate swelling, redness, drainage occure. [facility] Other 11-10-2022 Evaluation note* Encounter Date Diagnosis Assessment Notes Treatment Notes Treatment Clinical Notes Dec, Anxiety with depression (ICD-10 - F41.8) Mood is well controlled. Continue current meds and recheck this in 6 months, sooner if problems Dec,2Right hip pain (ICD-10 - M25.551)The etiology of her hip pain is unclear, and her exam does not show significant abnormality. She would like to stay on the meloxicam which I think is reasonable. She denies any medication side effects. I encouraged regular exercise, walking. I offered sending her to physical therapy, she prefers tohold off on this right now. She will let me know if she changes her mind. Dec,Flu vaccine need (ICD-10 - Z23) [facility] Other 06-09-2022 Evaluation note* Encounter Date Diagnosis Assessment Notes Treatment Notes Treatment Clinical Notes Jul, Midline low back alen n without sciatica, unspecified chronicity (ICD-10 - M54.50) Symptoms most suspicious for a lumbar radiculopathy. Check lumbar spine x-rays to reassess her degenerative changes, observe response to meloxicam. She may also benefit from PT in the future Jul,ight hip pain (ICD-10 - M25.551)Check x-ray to evaluate for possible arthritis, though clinically I am most suspicious for trochanteric bursitis. If x-ray does not provide a contraindication, I will have her come back for steroid injection. In the meantime, start meloxicam and observe response. Recheck in a month [facility] Other 11-24-2021 Evaluation note* Encounter Date Diagnosis [...] no improvement in 2 to 3 days. Dec,Urinary tract infection, site not specified (ICD-10 - N39.0) Dec,Hematuria, unspecified (ICD-10 - R31.9) [facility] Other Evaluation + Plan note Future Appointments Appointment Date:04/30/2024 03:00:00 PM Scheduled Provider:ANTHONY STILL PA-C Location:[facility] Appointment Type:URO Office Visit [facility] evaluation noteNo InformationNort [place] Other Evaluation note* Diagnosis Encounter for gynecological examination without abnormal finding Encounter for Papanicolaou smear of vagina Breast cancer screening by mammogram [facility] Diagnosis Anemia, unspecified type- Primary [facility] Diagnosis Duodenal ulcer- Primary Anemia, unspecified type documented in this encounter [facility] noteNo assessment information [facility] Work Phone: Evaluation note* Diagnosis Choledocholithiasis- Primary Calculus of bile duct without mention of cholecystitis or obstruction [facility]* Diagnosis Encounter for gynecological examination without abnormal finding- Primary Encounter for Papanicolaou smear of vagina Breast cancer screening by mammogram Breast tenderness Mastodynia documented in this encounter [facility] general Narrative - Reported* Type Description Date Medical History Headache Medical HistoryanxietySurgical Historypartial [id number] History tubal [id number] HistorycolonoscopySurgical [id number] Hospitalization Historychildbirth [facility] Other Hospital course Narrative No data available for this section [facility] InstructionsNot on filedocumented in this encounter [facility]InstructionsNot on filedocumented in this encounter [facility] SystemInstructionsNot on filedocumented in this encounter [facility] No data available for this section [facility] reason for referral (narrative)No reason for referral information availableLicking Memorial Hospital Work Phone: Summary Purpose Family History No Family History Records Found Relationship Condition Age at Onset Recorded Date/T liat father Unknown grandparentDeceasedUnknown Advance Directives No Advanced Directives Records Found Advance Directive Response Recorded Date/ Time Advance Directives No October 9:39am Advance Directive Response Recorded Date/ Time Advance Directives No October 10:39am Date ActivatedDate InactivatedComments10/23/2024 10:52 PM10/26/2024 9:02 PM Chief Complaint and Reason for Visit Chief [...] toenail of both feet June 12 2:08pm Chief Complaint Admit Date Hospital follow up[facility] November 08, 2024 2:51pm Chief Complaint Admit Date Hospital follow up/[facility] November 08, 2024 2:51pm release to go back to work December 04, 2024 1:26pm Reason for Visit Admit Date Acute cholecystitis November 08, 2024 2: 51pm History of cholecystectomy November 08, 2024 2:51pm Hospital discharge follow-up November 2:51pm History of cholecystectomy December 04, 2024 1:26pm Additional Source Comments REASON FOR VISIT (unrecogniz ed section and content) ReasonCommentsGynecologic ExamLMP: TL 2010 HRT: None Last pap 12-08-22 neg.Last mammogram 12-31-[address] [facility]. Denies breast, urinary, or bowel concerns. MenopauseStopped Estradiol, because she didn't think it was helping. States since weather is not as warm, hot flushes more mild and tolerable.ReasonOnset DateCommentsMed [id number]/02/2024ReasonCommentsPost-opGallbladder on 10/26/24 ReasonCommentsGynecologic ExamLMP: [facility] 2011 HRT: None Last pap 12-12-23 neg.Last mammogram 12-31-[address] [facility]. Denies urinary or bowel concerns.Breast ProblemReports bilateral breast pain and heaviness. States general nipple pain- worse when touched. INFORMATION SOURCE (unrecogn ized section and content) DATE CREATED AUTHOR 09/11/[address] [facility] DATE CREATED AUTHOR AUTHOR'S ORGANIZ ATION 03/08/2024 [facility] DATE CREATED AUTHOR AUTHOR'S ORGANIZ ATION 03/18/2024 [facility] DATE CREATED AUTHOR AUTHOR'S ORGANIZ ATION 03/24/2024 [facility] DATE CREATED AUTHOR AUTHOR'S ORGANIZ ATION 05/03/2024 [facility] DATE CREATED AUTHOR AUTHOR'S ORGANIZ ATION 10/29/2024 [facility] DATE CREATED AUTHOR AUTHOR'S ORGANIZ ATION 11/09/2024 [facility] DATE CREATED AUTHOR AUTHOR'S ORGANIZ ATION 11/26/2024 [facility] DATE CREATED AUTHOR AUTHOR'S ORGANIZ ATION 12/14/2024 [facility] EPIC Care Teams (unrecognized sec tion and content) Team MemberRelationshipSpecialtyStart DateEnd Date Brittany Swenson MD [address] [place] [address] PCP - Nlhqyac87/1/23 Team Status: Active Member Role Status Dates Brittanykarina Swenson , DO Primary Care Provider Active Star t: December 20, 2023 Ella Cornell ProviderActiveStart: December 20, 2023 Team Status: Inactive Member [...] Start: March 06, 2024 End: March 06, 2024PHYSICIAN NO FAMILYPrimary Care ProviderActiveStart: March 06, 2024 End: March 06, 2024 Team Status: Inactive Member Role Status Dates Brittany Mast , DO Primary Care Provide r, Attending Provider Active Start: March 20, 2024 End: March 20, 2024 Team Status: Inactive Member Role Status Dates Brittany Mast , DO Primary Care Provider Active Star t: June 07, 2024 End: June 07mandMohan Fischer ProviderActiveStart: June 07, 2024 End: June 07, 2024 [...] Start: June 19, 2024 End: June 19, 2024Team MemberRelationshipSpecialtyStart DateEnd Date Mast, Brittany E, DO [address] [place] [address] [facility]Team MemberRelationshipSpecialtyStart DateEnd Date Mast, Brittany E, DO [address] [place] [address] [facility] Team Status: Inactive Member Role Status Dates Brittany Mast , DO Primary Care Provider Active Star t: November 08, 2024 End: November 08, 2024Eric Mast , DOAttending ProviderActiveStart: November 08, 2024 End: November 08, 2024Team MemberRelationshipSpecialtyStart DateEnd Date Mast Brittany E, DO [address] [place] [address] PCP - [facility]10/30/24 Team Status: Active Member Role/Relationship Status Dates Brittany Mast , DO Primary Care Provider Active Team Status: Inactive Member Role/Relationship Status Dates Brittany Mast , DO Primary Care Provider Active Star t: November 08, 2024 End: November 08, 2024Eric Mast , DOAttending ProviderActiveStart: November 08, 2024 End: November 08, 2024 Team Status: Inactive Member Role/Relationship Status Dates Brittany Mast , DO Primary Care Provider Active Star t: December 04, 2024 End: December 04, 2024Eric Mast , DOAttending ProviderActiveStart: December 04, 2024 End: December 04, 2024Team MemberRelationshipSpecialtyStart DateEnd Date Messi Brittany E, DO [address] [place] [address] PCP - [facility]45/1/23 Goals (unrecognized section and content) Goals may [...] BE BASED ON THE PRIMARY CLINICAL RECORDS. [facility] [employer] provides no warranty or guarantee of the accuracy or completeness of information in this document.
== END 2024-12-28 13:24 | disposition home or self-care (01) ==
LOC: MAMMO 13:23
PROVIDERS: Visit Provider Obstetrics & Gynecology
DX: Z12.31 Encounter for screening mammogram for malignant neoplasm of breast (principal); Z80.0 Family history of malignant neoplasm of digestive organs
CPT/HCPCS: 77063; 77067